=== PATIENT | female | born 1980 | race Caucasian/White ===

== ENCOUNTER 2018-06-01 11:59 | Inpatient (IN) | payer MEDICARE, MEDICAID ==
[~2018-06-01] VITALS: Ht 160 cm; Wt 72.6 kg
[~2018-06-01 11:59] MED LIST: ACET-1467 PO; ASPI-1094 PO; CEPH-570 PO; CLON1TAB12 PO; DIVA500T2 PO; FERR-38 PO; INSU100C SQ; INSU100V7 SQ; LURA20TA PO; METO50TA16 PO; ZOLP10TA2 PO
[2018-06-01] MEDS ORDERED: IV NORMAL SALINE 1000 ML BAG IV ONE ×2 (14:00→15:30)
[2018-06-01 14:35] LABS: BASOPHILS % (AUTO) 0.2 % (0.0-2.0); EOSINOPHILS % (AUTO) 0.2 % (0.0-7.0); HEMATOCRIT 34.2 % (31.2-41.9); HEMOGLOBIN 11.8 g/dL (10.9-14.3); LYMPHOCYTES # (AUTO) 0.3 K/uL (20.0-40.0); LYMPHOCYTES % (AUTO) 2.3 % (20.5-51.5); MEAN CORPUSCULAR HEMOGLOBIN 32.6 uug (24.7-32.8); MEAN CORPUSCULAR HGB CONC 35 g/dL (32.3-35.6); MEAN CORPUSCULAR VOLUME 94.6 fL (75.5-95.3); MONOCYTES # (AUTO) 0.5 K/uL (2.0-10.0); MONOCYTES % (AUTO) 4.5 % (0.0-11.0); NEUTROPHILS # (AUTO) 10.2 K/uL (1.8-8.9); NEUTROPHILS % (AUTO) 92.8 % (38.5-71.5); PLATELET COUNT (AUTO) 253 K/uL (179-408); RED BLOOD CELL COUNT(AUTO) 3.61 MIL/uL (3.63-4.92)
[2018-06-01 14:44] LABS: CARBON DIOXIDE 25 mmol/L (21-32); CHLORIDE 103 mmol/L (98-107); CREATININE 1.2 mg/dL (0.6-1.3); POTASSIUM 4.7 mmol/L (3.5-5.1); UREA NITROGEN, BLOOD 22 mg/dL (7-18)
--- NOTE | 2018-06-01 14:47 | NUR ---
tried 3 time to heplock the pt unsuccessfull. pt requested to be placed on the foot. dr. santillan oked it.
[2018-06-01 14:49] LABS: GLUCOSE 378 mg/dL (74-106)
[2018-06-01 14:51] LABS: ALANINE AMINOTRANSFERASE 14 U/L (14-59); ALKALINE PHOSPHATASE 84 U/L (50-136); ASPARTATE AMINOTRANSFERASE 5 U/L (15-37); BILIRUBIN,DIRECT < 0.1 mg/dL (0.0-0.2); BILIRUBIN,TOTAL 0.2 mg/dL (0.2-1.0); LIPASE 129 U/L (73-393); TOTAL PROTEIN, SERUM 7.9 g/dL (6.4-8.2)
[2018-06-01 15:14] LABS: *BILIRUBIN,URIN NEGATIVE (NEGATIVE); *BLOOD, URINE NEGATIVE (NEGATIVE); *CLARITY,URINE SLIGHTLY CLOUDY (CLEAR); *COLOR,URINE YELLOW (YELLOW); *KETONES,URINE TRACE (NEGATIVE); *UROBILINOGEN,URINE 0.2 E.U./dl (NORMAL); NITRITE, URINE NEGATIVE (NEGATIVE); PH,URINE 6.5 (5.0-8.0); UGLUCOSE 2+ (NEGATIVE)
[2018-06-01 15:19] LABS: LEUKOCYTE ESTERASE ,URINE TRACE (NEGATIVE)
[2018-06-01 15:21] LABS: BACTERIA,URINE MODERATE /HPF (NONE SEEN); SQUAMOUS EPITHELIAL CELL,UR MANY /HPF (NONE SEEN)
[2018-06-01] MEDS ORDERED: INSULIN REGULAR, HUMAN 300 UNIT/3 ML VIAL IV ONE (15:30)
--- NOTE | 2018-06-01 15:36 | NUR ---
PT DOES NOT REMEMBER HER HOME MEDICATION.
[2018-06-01] MEDS ORDERED: FERR325T28 PO (16:05)
[2018-06-01] MEDS ORDERED: INSU100V7 SQ (16:05)
[2018-06-01] MEDS ORDERED: ASPI-605 PO (16:05)
[2018-06-01] MEDS ORDERED: ZOLP10TA2 PO (16:05)
[2018-06-01] MEDS ORDERED: CLON1TAB12 PO (16:05)
[2018-06-01] MEDS ORDERED: LURA40TA PO (16:05)
[2018-06-01] MEDS ORDERED: INSU100C SQ (16:05)
[2018-06-01] MEDS ORDERED: ACET-1467 PO (16:05)
[2018-06-01] MEDS ORDERED: DIVA500T2 PO (16:05)
[2018-06-01] MEDS ORDERED: INSULIN REGULAR, HUMAN 300 UNIT/3 ML VIAL ONE (16:22)
[2018-06-01] MEDS ORDERED: ONDANSETRON 4 MG/2 ML VIAL ONE (16:59)
[2018-06-01] MEDS ORDERED: ONDANSETRON IV *ER 4 MG/2 ML VIAL IV ONE (17:00)
[2018-06-01] MEDS ORDERED: FENTANYL CITRATE 100 MCG/2 ML AMPUL IV ONE (17:30)
[2018-06-01] MEDS ORDERED: FENTANYL CITRATE 100 MCG/2 ML AMPUL ONE (17:48)
[2018-06-01] MEDS ORDERED: IV NS 1000 ML 1,000 ML IV ONE ×2 (19:00)
[2018-06-01 19:07] VITALS: BP 140/85
[2018-06-01] MEDS ORDERED: CLONAZEPAM 1 MG TABLET PO PRN (19:15)
[2018-06-01] MEDS ORDERED: ZOLPIDEM TARTRATE PO PRN (19:15)
[2018-06-01] MEDS ORDERED: INSULIN REGULAR, HUMAN 300 UNIT/3 ML VIAL SQ PRN ×2 (19:15)
[2018-06-01] MEDS ORDERED: DEXTROSE 50% 50 ML DISP.SYRIN IV PRN ×2 (19:15)
[2018-06-01] MEDS ORDERED: ZOLPIDEM 5 MG TABLET PO PRN (19:30)
[2018-06-01 19:45] VITALS: BP 136/90
--- NOTE | 2018-06-01 19:45 | NUR ---
RECEIVED PATIENT AWAKE IN BED. A/O X4. C/O MILD DISCOMFORT IN ABDOMEN AND C/O NAUSEA. VSS. PATIENT HAS #22 GAUGE NOTED TO RIGHT FOOT. RECEIVED ORDER FOR PATIENT TO HAVE MID-LINE INSERTION TONIGHT. PATIENT GIVEN ZOFRAN 4MG IV PER RN. BED ALARM ON. CALL LIGHT IN REACH. ALL NEEDS ATTENDED. WILL CONTINUE TO MONITOR.
[2018-06-01] MEDS: ONDANSETRON 4 MG/2 ML VIAL IV PRN (19:49)
[2018-06-01] MEDS ORDERED: VANCOMYCIN IV 1,500 MG in IV DEXTROSE 5% 500 ML IV SCH (20:00)
[2018-06-01] MEDS ORDERED: FLUCONAZOLE 100 MG TABLET PO ONE (20:30)
[2018-06-01] MEDS ORDERED: MORPHINE SULFATE 2 MG/1 ML DISP.SYRIN IV PRN (20:30)
[2018-06-01] MEDS: BLOOD SUGAR DIAGNOSTIC 1 EACH STRIP VI SCH (20:35)
[2018-06-01] MEDS: INSULIN GLARGINE,HUM 300 UNITS/3 ML CARTRIDGE SQ SCH (20:47)
[2018-06-01] MEDS: INSULIN REGULAR, HUMAN 300 UNITS/3 ML VIAL SQ PRN (20:48)
[2018-06-01] MEDS ORDERED: BLOOD SUGAR DIAGNOSTIC 1 EACH STRIP VI SCH (21:00)
--- NOTE | 2018-06-01 21:00 | NUR ---
INSERTED MYLES CATHETER FR 16VWITH 10ML BALLOON PER ORDER. PATIENT DRAINED 800ML OF CLEAR YELLOW URINE ON MYLES BAG VIA GRAVITY.
--- NOTE | 2018-06-01 21:00 | NUR ---
MID-LINE INSERTED TO LEFT UPPER ARM.
--- NOTE | 2018-06-01 21:02 | NUR ---
PHARMACY CLINICAL NOTES ( VANCOMYCIN DOSING) S: 38 yo female with dx of early sepsis, source of possible pyelonephritis. She is also complaining of abdominal pain in addition to n/v. O: BUN/SCR 22/1.2; WBC 11.0, TEMP 98.6, dosing wt 73 kg , CRCL 51.55 A/P: PT on zosyn as well. Will dose Vancomcyin as 1500 mg q24h, estimated peak of 41.4 and trough of 15. Will continue to monitor the renal fxn and if stable will order trough prior to 4th dose and will adjust dose if necessary.
[2018-06-01] MEDS: MORPHINE SULFATE 4 MG/1 ML DISP.SYRIN IV PRN (21:24)
[2018-06-01] MEDS: PIPERACILLIN/TAZOBACTAM/D5W 3.375 G in PREMIXED 1 EACH IV SCH (22:05)
--- NOTE | 2018-06-01 23:00 | NUR ---
RECEIVED PATIENT LYING IN BED. AAOX4. IN NO ACUTE DISTRESS. IV SITE ON RIGHT FOOT INTACT AND PATENT. MIDLINE ON LEFT UPPER ARM INTACT. IV INFUSING. MYLES CATHETER INTACT AND DRAINING VIA GRAVITY. NEEDS ATTENDED TO AND MET. SAFETY MEASURE MAINTAINED AND CALL KIM WITHIN REACH.
[2018-06-01] MEDS: ACETAMINOPHEN/CODEINE 300-30 MG TABLET PO PRN (23:19)
[2018-06-02] MEDS: MORPHINE SULFATE 4 MG/1 ML DISP.SYRIN IV PRN ×4 (03:29→19:58)
[2018-06-02 03:34] VITALS: BP 108/57
[2018-06-02] MEDS: PIPERACILLIN/TAZOBACTAM/D5W 3.375 G in PREMIXED 1 EACH IV SCH ×3 (05:09→21:36)
--- NOTE | 2018-06-02 06:11 | NUR ---
AAOX4. IV SITE ON RIGHT FOOT INTACT AND PATENT. MIDLINE ON LEFT UPPER ARM INTACT. NO ADVERSE EFFECT NOTED FROM IV ABX. MYLES CATHETER INTACT AND DRAINING VIA GRAVITY. DENIES ANY PAIN AT THIS TIME. NO SOB. NEEDS ATTENDED TO AND MET. SAFETY MEASURE MAINTAINED AND CALL KIM WITHIN
[2018-06-02] MEDS: BLOOD SUGAR DIAGNOSTIC 1 EACH STRIP VI SCH ×4 (06:37→20:14)
--- NOTE | 2018-06-02 07:00 | NUR ---
PATIENT IS A/O x 3, NO SOB OR ANY DISTRESS AT THE MOMENT, F/C INTACT, MIDLINE ON L UP ARM INTACT, COMPLAINS OF ABD PAIN WILL FOLLOW UP WITH ORDER PER MD. CARE PLAN DISCUSSED. SAFETY REINFORCED
[2018-06-02 08:00] VITALS: BP 99/65
[2018-06-02] MEDS: PANTOPRAZOLE SODIUM 40 MG VIAL IV SCH (09:11)
[2018-06-02] MEDS: DIVALPROEX 500 MG TABLET.DR PO SCH ×2 (09:11→17:30)
[2018-06-02] MEDS: FERROUS SULFATE 325 MG TABEC PO SCH (09:12)
[2018-06-02] MEDS: ASPIRIN EC 81 MG TABLET.DR PO SCH (09:12)
[2018-06-02 12:00] VITALS: BP 91/60
--- NOTE | 2018-06-02 13:00 | NUR ---
D/C F/CATH PER SYDNEY STOUT
--- NOTE | 2018-06-02 14:30 | NUR ---
INSERTION OF F/CATH PER SALES SERVICE REP BOBBY DUE TO AREA REPRESENTATIVE REQUEST
[2018-06-02 14:49] LABS: BASOPHILS % (AUTO) 0.6 % (0.0-2.0); EOSINOPHILS # (AUTO) 0.1 K/uL (0.0-0.7); HEMATOCRIT 25.7 % (31.2-41.9); LYMPHOCYTES # (AUTO) 1.7 K/uL (20.0-40.0); LYMPHOCYTES % (AUTO) 35.2 % (20.5-51.5); MEAN CORPUSCULAR HGB CONC 35 g/dL (32.3-35.6); MEAN CORPUSCULAR VOLUME 93.5 fL (75.5-95.3); MONOCYTES # (AUTO) 0.3 K/uL (2.0-10.0); MONOCYTES % (AUTO) 5.6 % (0.0-11.0); NEUTROPHILS # (AUTO) 2.6 K/uL (1.8-8.9); NEUTROPHILS % (AUTO) 55.6 % (38.5-71.5); PLATELET COUNT (AUTO) 226 K/uL (179-408); RED BLOOD CELL COUNT(AUTO) 2.75 MIL/uL (3.63-4.92); WHITE BLOOD COUNT (AUTO) 4.7 K/uL (3.8-11.8)
[2018-06-02] MEDS: IV NS 1000 ML 1,000 ML IV PRN (14:50)
[2018-06-02 14:56] LABS: HEMOGLOBIN 9.1 g/dL (10.9-14.3)
[2018-06-02 15:02] LABS: MAGNESIUM 1.6 mg/dL (1.8-2.4); PHOSPHOROUS 2.6 mg/dL (2.5-4.9); POTASSIUM 3.3 mmol/L (3.5-5.1)
[2018-06-02] MEDS: ACETAMINOPHEN 325 MG TABLET PO PRN (15:51)
[2018-06-02] MEDS: POTASSIUM CHLORIDE 50 ML IV SCH ×2 (16:24→17:30)
[2018-06-02] MEDS ORDERED: SWABABLE VALVE TRANSFER SET EA MC ONE (16:46)
[2018-06-02] MEDS ORDERED: IOHEXOL 300MG/ML 100 ML INFUS..BTL ONE (16:46)
[2018-06-02] MEDS ORDERED: IV NORMAL SALINE 250 ML IV ONE (16:46)
[2018-06-02] MEDS ORDERED: NORMAL SALINE FLUSH 10 ML DISP.SYRIN ONE (16:46)
[2018-06-02] MEDS ORDERED: LURASIDONE HCL PO SCH (18:00)
--- NOTE | 2018-06-02 18:23 | NUR ---
PATIENT A/O X3, COMPLAINED OF ABD PAIN WERE TREATED W MORPHINE WHICH WASNT WORKING FOR DESIRED OUTCOME. DOCTOR IS AWARE OF IT, DOSE WAS CHANGED INFREQUENCY AND CONTROLLED BETTER. MIDLINE INTACT, POTASSIUM REPLACED W TWO BAGS, F/C REINSERTED, MED CARED OUT THOUGHT SHIFT, CT W/ CONTRAST FOR ABD IS ORDERED AND CONSENT SIGNED. SAFETY REINFORCED
[2018-06-02] MEDS: ONDANSETRON 4 MG/2 ML VIAL IV PRN (18:32)
--- NOTE | 2018-06-02 19:45 | NUR ---
RECEIVED PATIENT AWAKE IN BED. A/O X4. NO C/O PAIN OR DISCOMFORT AT THIS TIME. NO RESP. DISTRESS NOTED. MID-LINE NOTED TO LEFT UPPER ARM. HEPLOCK NOTED TO RIGHT FOOT, #22 GAUGE. VS WNL. F/C INTACT AND DRAINING CLEAR, YELLOW URINE. BED ALARM ON. CALL LIGHT IN REACH. ALL NEEDS ATTENDED. WILL CONTINUE TO MONITOR AND ASSESS.
[2018-06-02] MEDS: MAGNESIUM SULFATE/D5W 100 ML IV SCH ×2 (19:48→20:54)
[2018-06-02 20:00] VITALS: BP 121/76
[2018-06-02] MEDS: INSULIN GLARGINE,HUM 300 UNITS/3 ML CARTRIDGE SQ SCH (20:15)
[2018-06-03] MEDS: MORPHINE SULFATE 4 MG/1 ML DISP.SYRIN IV PRN ×4 (01:49→18:15)
[2018-06-03] MEDS: ACETAMINOPHEN 325 MG TABLET PO PRN (03:07)
[2018-06-03] MEDS: PIPERACILLIN/TAZOBACTAM/D5W 3.375 G in PREMIXED 1 EACH IV SCH ×3 (05:41→21:02)
[2018-06-03 05:42] VITALS: BP 91/45
[2018-06-03] MEDS: BLOOD SUGAR DIAGNOSTIC 1 EACH STRIP VI SCH ×4 (06:33→20:12)
--- NOTE | 2018-06-03 06:36 | NUR ---
PATIENT AWAKE IN BED. SLEPT WELL. NO C/O PAIN AT THIS TIME. CALL LIGHT IN REACH. ALL NEEDS ATTENDED.
[2018-06-03 07:08] LABS: BASOPHILS % (AUTO) 0.7 % (0.0-2.0); EOSINOPHILS # (AUTO) 0.1 K/uL (0.0-0.7); EOSINOPHILS % (AUTO) 2.5 % (0.0-7.0); HEMATOCRIT 26.8 % (31.2-41.9); HEMOGLOBIN 9.5 g/dL (10.9-14.3); LYMPHOCYTES # (AUTO) 1.7 K/uL (20.0-40.0); LYMPHOCYTES % (AUTO) 37.4 % (20.5-51.5); MEAN CORPUSCULAR HEMOGLOBIN 33.3 uug (24.7-32.8); MEAN CORPUSCULAR HGB CONC 36 g/dL (32.3-35.6); MEAN CORPUSCULAR VOLUME 93.7 fL (75.5-95.3); MONOCYTES # (AUTO) 0.3 K/uL (2.0-10.0); MONOCYTES % (AUTO) 6.2 % (0.0-11.0); NEUTROPHILS # (AUTO) 2.5 K/uL (1.8-8.9); NEUTROPHILS % (AUTO) 53.2 % (38.5-71.5); PLATELET COUNT (AUTO) 246 K/uL (179-408); RED BLOOD CELL COUNT(AUTO) 2.86 MIL/uL (3.63-4.92); WHITE BLOOD COUNT (AUTO) 4.6 K/uL (3.8-11.8)
[2018-06-03 07:18] LABS: CREATININE 0.9 mg/dL (0.6-1.3); MAGNESIUM 2.5 mg/dL (1.8-2.4); PHOSPHOROUS 3.6 mg/dL (2.5-4.9); POTASSIUM 3.7 mmol/L (3.5-5.1)
[2018-06-03] MEDS: FERROUS SULFATE 325 MG TABEC PO SCH (08:00)
[2018-06-03] MEDS: DIVALPROEX 500 MG TABLET.DR PO SCH ×2 (08:00→17:03)
[2018-06-03] MEDS: ASPIRIN EC 81 MG TABLET.DR PO SCH (08:00)
[2018-06-03] MEDS: PANTOPRAZOLE SODIUM 40 MG VIAL IV SCH (08:00)
[2018-06-03 11:48] VITALS: BP 91/53
[2018-06-03 15:26] VITALS: BP 94/46
--- NOTE | 2018-06-03 18:34 | NUR ---
patient is resting in bed comfortably. patient is in stable condition and vital signs within normal limits. patient was not eating breakfast nor lunch. Patient was compliant and consumed all of her food for dinner. Patient has been complaining of pain through out the shift but is well managed with medication administration of morphine 2mg IV Q4h PRN. patient states abdominal pain but refuses to allow me to assess. Patient prefers medication. Damian catheter has been remove per N.P. order. Will monitor for void and urine output. Patient is able to verbalize needs and all needs have been addressed and met. Will continue to monitor and endorse POC to mini shifter nurse.
--- NOTE | 2018-06-03 20:00 | NUR ---
RECEIVED PATIENT AWAKE IN BED. A/O X4. NO C/O AT THIS TIME. PATIENT WAS PREVIOUSLY MEDICATED PER DAY SHIFT RN. VSS. MID-LINE NOTED TO LEFT UPPER ARM, INTACT AND PATENT, WITH IVF INFUSING WELL. NO RESP. DISTRESS NOTED. CALL LIGHT IN REACH. ALL NEEDS ATTENDED. WILL CONTINUE TO MONITOR AND ASSESS.
[2018-06-03] MEDS: INSULIN REGULAR, HUMAN 300 UNITS/3 ML VIAL SQ PRN (20:13)
[2018-06-03] MEDS: INSULIN GLARGINE,HUM 300 UNITS/3 ML CARTRIDGE SQ SCH (20:13)
[2018-06-03 20:25] VITALS: BP 120/68
[2018-06-03] MEDS: ACETAMINOPHEN/CODEINE 300-30 MG TABLET PO PRN (21:21)
--- NOTE | 2018-06-03 21:25 | NUR ---
PATIENT AWAKE IN BED. C/O PAIN IN ABDOMEN. MORPHINE NOT DUE AT THIS TIME. PATIENT GIVEN TYLENOL #3 ORDERED FOR PAIN. VSS. WILL CONTINUE TO MONITOR.
[2018-06-04] MEDS: MORPHINE SULFATE 4 MG/1 ML DISP.SYRIN IV PRN (01:16)
--- NOTE | 2018-06-04 01:22 | NUR ---
GAVE FRIENDSHIP FOR PAIN SCALE 8/10 PAIN ON HER LEFT, RIGHT MEDIAL ABDOMEN. SAFETY AND COMFORT PROVIDED. WILL CONTINUE TO MONITOR. Addendum: 06/04/18 at 0643 by SABIHA DUQUE RN WRONG MEDICATION IT SHOULD BE MORPHINE.
[2018-06-04 04:26] VITALS: BP 110/67
[2018-06-04] MEDS: PIPERACILLIN/TAZOBACTAM/D5W 3.375 G in PREMIXED 1 EACH IV SCH (05:01)
[2018-06-04] MEDS: IV NS 1000 ML 1,000 ML IV PRN (05:19)
[2018-06-04 06:28] LABS: CREATININE 0.9 mg/dL (0.6-1.3); MAGNESIUM 2.3 mg/dL (1.8-2.4); PHOSPHOROUS 4.1 mg/dL (2.5-4.9); POTASSIUM 3.9 mmol/L (3.5-5.1)
[2018-06-04] MEDS: BLOOD SUGAR DIAGNOSTIC 1 EACH STRIP VI SCH ×3 (06:28→12:20)
[2018-06-04 06:32] LABS: BASOPHILS % (AUTO) 0.7 % (0.0-2.0); EOSINOPHILS # (AUTO) 0.1 K/uL (0.0-0.7); EOSINOPHILS % (AUTO) 1.7 % (0.0-7.0); HEMATOCRIT 29.6 % (31.2-41.9); HEMOGLOBIN 10.5 g/dL (10.9-14.3); LYMPHOCYTES # (AUTO) 2.2 K/uL (20.0-40.0); LYMPHOCYTES % (AUTO) 40.8 % (20.5-51.5); MEAN CORPUSCULAR HEMOGLOBIN 32.6 uug (24.7-32.8); MEAN CORPUSCULAR HGB CONC 35 g/dL (32.3-35.6); MEAN CORPUSCULAR VOLUME 91.9 fL (75.5-95.3); MONOCYTES # (AUTO) 0.3 K/uL (2.0-10.0); MONOCYTES % (AUTO) 5.9 % (0.0-11.0); NEUTROPHILS # (AUTO) 2.8 K/uL (1.8-8.9); NEUTROPHILS % (AUTO) 50.9 % (38.5-71.5); PLATELET COUNT (AUTO) 186 K/uL (179-408); RED BLOOD CELL COUNT(AUTO) 3.22 MIL/uL (3.63-4.92); WHITE BLOOD COUNT (AUTO) 5.5 K/uL (3.8-11.8)
--- NOTE | 2018-06-04 06:55 | NUR ---
PATIENTS BLOOD SUGAR, 51. PATIENT ASYMPTOMATIC. PATIENT GIVEN JUICE AND CIERRA CRACKERS. RECHECKED AFTER 15 MINUTES, BLOOD SUGAR NOW 101. ALL NEEDS ATTENDED .
[2018-06-04] MEDS ORDERED: PANTOPRAZOLE SODIUM 40 MG TABLET.DR PO SCH (07:00)
--- NOTE | 2018-06-04 07:25 | NUR ---
RECEIVED REPORT FROM TECHNICAL PROGRAM MANAGER NURSE, PATIENT IN BED ASLEEP, NO DISTRESS NOTED AT THIS TIME, BED IN LOW POSITION, SIDE RAILS UP X2.
[2018-06-04] MEDS: DIVALPROEX 500 MG TABLET.DR PO SCH (09:59)
[2018-06-04] MEDS: FERROUS SULFATE 325 MG TABEC PO SCH (09:59)
[2018-06-04] MEDS: ASPIRIN EC 81 MG TABLET.DR PO SCH (09:59)
[2018-06-04 11:40] VITALS: BP 101/68
[2018-06-04] MEDS ORDERED: LEVO500T2 PO (12:10)
--- NOTE | 2018-06-04 14:05 | NUR ---
Patient was given discharge instructions, IV removed and prescription given. Patient refused to have pictures taken as she didn't want wound to be unwrapped before she goes home. Patient picked up by father, and was taken down by staff to sheepskin pickler area via wheelchair. No distress noted at time of discharge.
[2018-06-27] MEDS ORDERED: DOCU100C36 PO (13:47)
[2018-06-27] MEDS ORDERED: FERR325T28 PO (14:23)
== END 2018-06-04 14:05 | disposition home health service (06) | DRG 854 ==
LOC: ER 11:59 → MED 18:26
PROVIDERS: ADMIT Registered Nurse; ATTEND Registered Nurse
PROC: 05HY33Z Insertion of Infusion Device into Upper Vein, Percutaneous Approach (ICD-10-PCS; principal; 2018-06-01)
PROC: 0JBR0ZZ Excision of Left Foot Subcutaneous Tissue and Fascia, Open Approach (ICD-10-PCS; 2018-06-03)
DX: A41.9 Sepsis, unspecified organism (principal); N12 Tubulo-interstitial nephritis, not specified as acute or chronic; N13.30 Unspecified hydronephrosis; L97.525 Non-pressure chronic ulcer of other part of left foot with muscle involvement without evidence of necrosis; E87.2 Acidosis; N39.0 Urinary tract infection, site not specified; K76.0 Fatty (change of) liver, not elsewhere classified; G40.909 Epilepsy, unspecified, not intractable, without status epilepticus; Z87.440 Personal history of urinary (tract) infections; R33.9 Retention of urine, unspecified; E66.9 Obesity, unspecified; Z68.28 Body mass index [BMI] 28.0-28.9, adult; E11.621 Type 2 diabetes mellitus with foot ulcer; N31.9 Neuromuscular dysfunction of bladder, unspecified; E11.42 Type 2 diabetes mellitus with diabetic polyneuropathy; Z79.4 Long term (current) use of insulin; Z79.82 Long term (current) use of aspirin; E86.0 Dehydration; B37.3 Candidiasis of vulva and vagina; Q63.2 Ectopic kidney; Z71.3 Dietary counseling and surveillance; B96.89 Other specified bacterial agents as the cause of diseases classified elsewhere; E11.65 Type 2 diabetes mellitus with hyperglycemia; K58.0 Irritable bowel syndrome with diarrhea
CPT/HCPCS: 36415; 70030-TC; 71045; 73630; 83605; 83690; 83735; 84100; 85025; 85730; 87040; 87086; 93005; A4663; C9113; G0378; J1815; J2270; J2405; J2543; J3010; J3370; J3475; J3480; J3490; J7030; J7050; J7060; Q9967

== ENCOUNTER 2018-06-21 10:07 | Inpatient (IN) | payer MEDICARE, MEDICAID ==
[~2018-06-21] VITALS: Ht 160 cm; Wt 74.8 kg
[~2018-06-21 10:07] MED LIST changes: +ASPI-605 PO; +FERR325T28 PO; +LEVO500T2 PO; +LURA40TA PO
--- NOTE | 2018-06-21 10:13 | NUR ---
PT A/OX4, BIB [facility] C/O L FLANK PAIN X 1 WEEK, NON-PROVOKED, SHARP IN QUALITY, DOES NOT RADIATE, 10, CONSTANT. VSS. SECONDARY COMPLAINT: N/V X 3 WEEKS. PT ALSO REPORTS 9 EPISODES OF VOMITING SINCE THIS AM. PT DENIES C/P, SOB, DIZZINESS, HEADACHE.
[2018-06-21] MEDS ORDERED: IV NORMAL SALINE 1000 ML BAG IV ONE (10:15)
--- NOTE | 2018-06-21 10:15 | NUR ---
OMEGA YU AT BEDSIDE FOR MSE.
[2018-06-21 10:40] LABS: BASOPHILS # (AUTO) 0.1 K/uL (0.0-8.0); BASOPHILS % (AUTO) 0.9 % (0.0-2.0); EOSINOPHILS # (AUTO) 0.1 K/uL (0.0-0.7); EOSINOPHILS % (AUTO) 1.1 % (0.0-7.0); HEMATOCRIT 37.9 % (31.2-41.9); HEMOGLOBIN 13.3 g/dL (10.9-14.3); LYMPHOCYTES # (AUTO) 1.6 K/uL (20.0-40.0); LYMPHOCYTES % (AUTO) 22.9 % (20.5-51.5); MEAN CORPUSCULAR HEMOGLOBIN 32.5 uug (24.7-32.8); MEAN CORPUSCULAR HGB CONC 35 g/dL (32.3-35.6); MEAN CORPUSCULAR VOLUME 92.8 fL (75.5-95.3); MONOCYTES # (AUTO) 0.4 K/uL (2.0-10.0); MONOCYTES % (AUTO) 5.1 % (0.0-11.0); PLATELET COUNT (AUTO) 372 K/uL (179-408); RED BLOOD CELL COUNT(AUTO) 4.09 MIL/uL (3.63-4.92); WHITE BLOOD COUNT (AUTO) 7.1 K/uL (3.8-11.8)
[2018-06-21 10:48] LABS: CREATININE 1.1 mg/dL (0.6-1.3); POTASSIUM 4.2 mmol/L (3.5-5.1)
[2018-06-21 10:54] LABS: BILIRUBIN,DIRECT 0.1 mg/dL (0.0-0.2); BILIRUBIN,TOTAL 0.3 mg/dL (0.2-1.0)
[2018-06-21] MEDS ORDERED: MORPHINE SULFATE 4 MG/1 ML DISP.SYRIN IV ONE (11:00)
[2018-06-21] MEDS ORDERED: ONDANSETRON IV *ER 4 MG/2 ML VIAL IV ONE (11:00)
[2018-06-21] MEDS ORDERED: IV NORMAL SALINE 500 ML BAG IV ONE (11:00)
[2018-06-21] MEDS ORDERED: PIPERACILLIN SODIUM/TAZOBACTAM 3.375 G in IV DEXTROSE 5% 50 ML IV ONE (11:00)
--- NOTE | 2018-06-21 11:01 | NUR ---
US TECH AT BEDSIDE.
[2018-06-21] MEDS ORDERED: ONDANSETRON 4 MG/2 ML VIAL ONE (11:04)
[2018-06-21] MEDS ORDERED: MORPHINE SULFATE 4 MG/1 ML DISP.SYRIN ONE (11:04)
[2018-06-21] MEDS ORDERED: PIPERACILLIN/TAZOBACTAM/D5W 50 ML IV ONE (11:04)
[2018-06-21 11:33] LABS: *BILIRUBIN,URIN NEGATIVE (NEGATIVE); *BLOOD, URINE NEGATIVE (NEGATIVE); *CLARITY,URINE CLEAR (CLEAR); *COLOR,URINE YELLOW (YELLOW); *KETONES,URINE 1+ (NEGATIVE); *UROBILINOGEN,URINE 0.2 E.U./dl (NORMAL); LEUKOCYTE ESTERASE ,URINE NEGATIVE (NEGATIVE); NITRITE, URINE NEGATIVE (NEGATIVE); UGLUCOSE NEGATIVE (NEGATIVE)
--- NOTE | 2018-06-21 11:37 | NUR ---
OMEGA YU AT BEDSIDE FOR PT UPDATE.
--- NOTE | 2018-06-21 12:01 | NUR ---
PAGED EPIC FOR PANEL CALL - AWAITING CALLBACK FROM DR. GREEN. ATTEMPT 1.
[2018-06-21 12:30] LABS: *URINE HCG, QUAL NEGATIVE (NEGATIVE)
--- NOTE | 2018-06-21 12:57 | NUR ---
PT TAKEN TO RADIOLOGY FOR CT SCAN.
--- NOTE | 2018-06-21 13:17 | NUR ---
PT BACK IN ER FROM RADIOLOGY.
--- NOTE | 2018-06-21 14:19 | NUR ---
Pt. admitted to [facility], under care of Dr. GREEN. Belongs List completed
--- NOTE | 2018-06-21 14:50 | NUR ---
RECEIVED PATIENT FROM ER VIA [place], PATIENT CHIEF COMPLAIN LEFT FLANK PAIN AND DIAGNOSE WITH ABDOMINAL PAIN , UNDER THE SERVICE OF DR. MEDRANO. VS TAKEN AND AND BELONGINGS CHECK. IV SITE ON LEFT THUMB WITH 22 GAUGE. NO SOB NOTED AND PATIENT LAYING IN BED COMFORTABLY. BED ON LOW POSITION AND 2 SIDE RAILS UP. ORIENT THE PATIENT TO THE ROOM AND EMPHASIZE THE USE OF CALL LIGHT. WILL CONTINUE TO MONITOR.
[2018-06-21] MEDS ORDERED: ACETAMINOPHEN 325 MG TABLET PO PRN (15:00)
[2018-06-21] MEDS ORDERED: DEXTROSE 50% 50 ML DISP.SYRIN IV PRN (15:00)
[2018-06-21] MEDS ORDERED: MORPHINE SULFATE 2 MG/1 ML DISP.SYRIN IV PRN (15:00)
[2018-06-21] MEDS ORDERED: ZOLPIDEM 5 MG TABLET PO PRN (15:00)
[2018-06-21] MEDS ORDERED: MAGNESIUM HYDROXIDE 30 ML LIQUID UDC PO PRN (15:00)
[2018-06-21] MEDS ORDERED: ONDANSETRON 4 MG/2 ML VIAL IV PRN (15:00)
[2018-06-21] MEDS: BLOOD SUGAR DIAGNOSTIC 1 EACH STRIP VI SCH ×2 (16:50→20:33)
[2018-06-21] MEDS: DIVALPROEX 500 MG TABLET.DR PO SCH (17:15)
[2018-06-21] MEDS: MORPHINE SULFATE 4 MG/1 ML DISP.SYRIN IV PRN ×2 (17:16→22:35)
[2018-06-21] MEDS: IV 1/2NS 1000 ML 1,000 ML IV PRN (17:17)
[2018-06-21] MEDS ORDERED: LURASIDONE HCL PO SCH (18:00)
--- NOTE | 2018-06-21 18:18 | NUR ---
patient want to get pneumo vaccine upon discharge. Addendum: 06/21/18 at 1819 by NINA ROSS RN Amended: Links added.
--- NOTE | 2018-06-21 18:40 | NUR ---
PATIENT IN BED LAYING COMFORTABLY ALERT AND ORIENTED X4 , NO SOB NOTED, NO C/O PAIN AT THIS MOMENT. BED ON LOW POSITION , SIDE RAILS UPX2 , SNACKS GIVEN AND OFFERED ICE WATER. IV SITE PATENT 1/2 NS AT 80 ML/HR. WILL CONTINUE TO MONITOR AND CALL LIGHT WITHIN REACH
[2018-06-21 20:00] VITALS: BP 92/52
--- NOTE | 2018-06-21 20:15 | NUR ---
RECEIVED PATIENT AWAKE IN BED. A/O X4. DENIES PAIN OR DISCOMFORT. NO RESP. DISTRESS NOTED. IVF INFUSING WELL TO LEFT THUMB. CALL LIGHT IN REACH. ALL NEEDS ATTENDED. WILL CONTINUE TO MONITOR AND ASSESS.
[2018-06-21] MEDS: INSULIN GLARGINE,HUM 300 UNITS/3 ML CARTRIDGE SQ SCH (20:29)
[2018-06-21] MEDS: INSULIN REGULAR, HUMAN 300 UNIT/3 ML VIAL SQ PRN (20:30)
[2018-06-21] MEDS: DOCUSATE SODIUM 100 MG CAPSULE PO SCH ×2 (20:36→20:53)
[2018-06-21] MEDS ORDERED: DOCUSATE SODIUM 250 MG CAPSULE PO SCH (21:00)
[2018-06-21 22:15] VITALS: BP 115/68
[2018-06-22] VITALS (7 sets, daily range): BP systolic 75–113; BP diastolic 46–74
[2018-06-22] MEDS: MORPHINE SULFATE 4 MG/1 ML DISP.SYRIN IV PRN ×4 (01:48→19:00)
[2018-06-22] MEDS: IV 1/2NS 1000 ML 1,000 ML IV PRN ×2 (05:22→19:01)
[2018-06-22] MEDS: PANTOPRAZOLE SODIUM 40 MG TABLET.DR PO SCH (06:10)
--- NOTE | 2018-06-22 06:16 | NUR ---
PATIENT AWAKE IN BED. C/O PAIN. GIVEN MORPHINE 2MG IV PRN FOR PAIN. VSS. CALL LIGHT IN REACH. ALL NEEDS ATTENDED. WILL CONTINUE TO MONITOR.
[2018-06-22 06:29] LABS: BASOPHILS # (AUTO) 0.1 K/uL (0.0-8.0); BASOPHILS % (AUTO) 0.8 % (0.0-2.0); EOSINOPHILS # (AUTO) 0.1 K/uL (0.0-0.7); EOSINOPHILS % (AUTO) 0.9 % (0.0-7.0); HEMATOCRIT 28.2 % (31.2-41.9); HEMOGLOBIN 9.9 g/dL (10.9-14.3); LYMPHOCYTES # (AUTO) 1.6 K/uL (20.0-40.0); LYMPHOCYTES % (AUTO) 22.9 % (20.5-51.5); MEAN CORPUSCULAR HEMOGLOBIN 32.9 uug (24.7-32.8); MEAN CORPUSCULAR HGB CONC 35 g/dL (32.3-35.6); MEAN CORPUSCULAR VOLUME 93.5 fL (75.5-95.3); MONOCYTES # (AUTO) 0.4 K/uL (2.0-10.0); MONOCYTES % (AUTO) 5.3 % (0.0-11.0); NEUTROPHILS # (AUTO) 4.8 K/uL (1.8-8.9); NEUTROPHILS % (AUTO) 70.1 % (38.5-71.5); PLATELET COUNT (AUTO) 279 K/uL (179-408); RED BLOOD CELL COUNT(AUTO) 3.02 MIL/uL (3.63-4.92); WHITE BLOOD COUNT (AUTO) 6.9 K/uL (3.8-11.8)
[2018-06-22] MEDS: BLOOD SUGAR DIAGNOSTIC 1 EACH STRIP VI SCH ×4 (06:33→21:31)
[2018-06-22 06:50] LABS: BILIRUBIN,TOTAL 0.2 mg/dL (0.2-1.0); MAGNESIUM 1.7 mg/dL (1.8-2.4); PHOSPHOROUS 4.1 mg/dL (2.5-4.9); POTASSIUM 3.8 mmol/L (3.5-5.1); TOTAL PROTEIN, SERUM 6.3 g/dL (6.4-8.2); URIC ACID 3.8 mg/dL (2.6-6.0)
[2018-06-22 07:20] LABS: THYROID STIMULATING HORMONE 2.675 mIU/mL (0.358-3.740)
--- NOTE | 2018-06-22 07:30 | NUR ---
patient received lying in bed, patient awake and alert falling, patient verbalized pain has improved, pain is 5 out 10. patient call light within reach, bed in low position, side rails up x2. continue to monitor, IV fluids 0.45 NS running at 80ml/hr on right upper arm midline. Addendum: 06/22/18 at 0828 by COREY ARRIAGA RN correction on note.... patient is awake and alert and falling sleep at times.
[2018-06-22] MEDS: FERROUS SULFATE 325 MG TABEC PO SCH (08:29)
[2018-06-22] MEDS: DIVALPROEX 500 MG TABLET.DR PO SCH ×2 (08:29→16:59)
--- NOTE | 2018-06-22 10:10 | NUR ---
patient requesting pain medication at this time, unable to safely administer, patient Hypotensive, 75/46. Asymptomatic, continue to monitor. instructed on safety fall precautions. call light within reach
[2018-06-22] MEDS ORDERED: MAGNESIUM OXIDE 400 MG TABLET PO ONE (10:45)
--- NOTE | 2018-06-22 11:52 | NUR ---
patient lying in bed no distress noted, falling sleep intermittently. patient requesting pain medication, patient states its starting again in her back side, verbalized "its my kidney", patient blood pressure at this time 85/46, patient with low blood pressure asymptomatic, offered to have MD review any other options for pain management , Patient verbalized she will wait for blood pressure to be stable for IV pain meds. Patient also on Latuda as part of home reconciliation not formulary not carried by our pharmacy, patient does not want to have med brought in, patient states she only has a few and doesn't need it, reported to pharmacist, Sharri. will report to MD, Dr Wilson.
[2018-06-22] MEDS ORDERED: TOPI25TA49 PO (13:36)
[2018-06-22] MEDS ORDERED: OXCA300T15 PO (13:37)
[2018-06-22] MEDS ORDERED: BUTA1CAP17 PO (13:40)
[2018-06-22] MEDS ORDERED: ALPR0.5T8 PO (13:41)
[2018-06-22 14:00] LABS: BASOPHILS % (AUTO) 0.5 % (0.0-2.0); EOSINOPHILS # (AUTO) 0.1 K/uL (0.0-0.7); EOSINOPHILS % (AUTO) 2.1 % (0.0-7.0); HEMATOCRIT 30.4 % (31.2-41.9); HEMOGLOBIN 10.5 g/dL (10.9-14.3); LYMPHOCYTES # (AUTO) 1.8 K/uL (20.0-40.0); LYMPHOCYTES % (AUTO) 31.4 % (20.5-51.5); MEAN CORPUSCULAR HEMOGLOBIN 32.4 uug (24.7-32.8); MEAN CORPUSCULAR HGB CONC 35 g/dL (32.3-35.6); MEAN CORPUSCULAR VOLUME 93.4 fL (75.5-95.3); MONOCYTES # (AUTO) 0.4 K/uL (2.0-10.0); MONOCYTES % (AUTO) 6.6 % (0.0-11.0); NEUTROPHILS # (AUTO) 3.3 K/uL (1.8-8.9); NEUTROPHILS % (AUTO) 59.4 % (38.5-71.5); PLATELET COUNT (AUTO) 265 K/uL (179-408); RED BLOOD CELL COUNT(AUTO) 3.26 MIL/uL (3.63-4.92); WHITE BLOOD COUNT (AUTO) 5.6 K/uL (3.8-11.8)
[2018-06-22 15:43] LABS: *OCCULT BLOOD STOOL POSITIVE (NEGATIVE)
--- NOTE | 2018-06-22 16:03 | NUR ---
Patient positive for Stool OB, Dr Wilson notified, to notify GI. No new orders received.
[2018-06-22] MEDS: DOCUSATE SODIUM 100 MG CAPSULE PO SCH (20:46)
[2018-06-22] MEDS: INSULIN GLARGINE,HUM 300 UNITS/3 ML CARTRIDGE SQ SCH (20:55)
[2018-06-22] MEDS: INSULIN REGULAR, HUMAN 300 UNIT/3 ML VIAL SQ PRN (20:57)
[2018-06-23 04:00] VITALS: BP 82/52
[2018-06-23 06:40] LABS: BASOPHILS % (AUTO) 0.6 % (0.0-2.0); EOSINOPHILS # (AUTO) 0.1 K/uL (0.0-0.7); EOSINOPHILS % (AUTO) 2.9 % (0.0-7.0); HEMATOCRIT 30.8 % (31.2-41.9); HEMOGLOBIN 10.7 g/dL (10.9-14.3); LYMPHOCYTES # (AUTO) 1.9 K/uL (20.0-40.0); LYMPHOCYTES % (AUTO) 38.7 % (20.5-51.5); MEAN CORPUSCULAR HEMOGLOBIN 32.5 uug (24.7-32.8); MEAN CORPUSCULAR HGB CONC 35 g/dL (32.3-35.6); MEAN CORPUSCULAR VOLUME 93.5 fL (75.5-95.3); MONOCYTES # (AUTO) 0.3 K/uL (2.0-10.0); MONOCYTES % (AUTO) 6.6 % (0.0-11.0); NEUTROPHILS # (AUTO) 2.6 K/uL (1.8-8.9); NEUTROPHILS % (AUTO) 51.2 % (38.5-71.5); PLATELET COUNT (AUTO) 251 K/uL (179-408); RED BLOOD CELL COUNT(AUTO) 3.29 MIL/uL (3.63-4.92)
[2018-06-23 06:48] LABS: CREATININE 0.9 mg/dL (0.6-1.3); MAGNESIUM 2.1 mg/dL (1.8-2.4); PHOSPHOROUS 3.8 mg/dL (2.5-4.9)
[2018-06-23] MEDS: PANTOPRAZOLE SODIUM 40 MG TABLET.DR PO SCH (07:01)
[2018-06-23] MEDS: BLOOD SUGAR DIAGNOSTIC 1 EACH STRIP VI SCH ×4 (07:05→21:02)
[2018-06-23] MEDS: IV 1/2NS 1000 ML 1,000 ML IV PRN ×2 (08:18→21:39)
[2018-06-23] MEDS: FERROUS SULFATE 325 MG TABEC PO SCH (08:20)
[2018-06-23] MEDS: DIVALPROEX 500 MG TABLET.DR PO SCH ×2 (08:20→17:15)
[2018-06-23] MEDS: MORPHINE SULFATE 4 MG/1 ML DISP.SYRIN IV PRN ×3 (08:55→20:12)
--- NOTE | 2018-06-23 09:00 | NUR ---
Patient awake, alert, not in any form of acute distress. Due medications administered and tolerated well. She complained of pain on the back, given PRN pain medication as ordered. IV line on the right upper arm in place and patent, no noted signs of infection. Assisted with her needs. Call light and frequently used items placed within reach.
[2018-06-23 12:00] VITALS: BP 90/57
[2018-06-23] MEDS: INSULIN REGULAR, HUMAN 300 UNIT/3 ML VIAL SQ PRN ×2 (12:37→20:23)
[2018-06-23 16:00] VITALS: BP 120/74
--- NOTE | 2018-06-23 19:25 | NUR ---
RECEIVED PT AWAKE, ALERT AND ORIENTEDX4. PT SHOW SNO SIGNS OF DISTRESS. IV INTACT. SAFETY AND COMFORT PROVIDED. WILL CONTINUE TO MONITOR.
[2018-06-23] MEDS: DOCUSATE SODIUM 100 MG CAPSULE PO SCH (20:13)
[2018-06-23 20:16] VITALS: BP 117/50
[2018-06-23] MEDS: INSULIN GLARGINE,HUM 300 UNITS/3 ML CARTRIDGE SQ SCH (20:21)
[2018-06-24 04:30] VITALS: BP 112/73
[2018-06-24] MEDS: PANTOPRAZOLE SODIUM 40 MG TABLET.DR PO SCH (06:19)
[2018-06-24] MEDS: BLOOD SUGAR DIAGNOSTIC 1 EACH STRIP VI SCH ×4 (06:42→20:49)
--- NOTE | 2018-06-24 06:43 | NUR ---
PT SLEPT THROUGHOUT THE SHIFT . PT SHOWS NO SIGNS OF DISTRESS. IV INTACT AND SALINE LOCK. PRESCRIBED MEDICATION GIVEN AND PT TOLERATED IT WELL.PT WAS GIVEN MORPHINE AT 2012H FOR SEVERE PAIN OF 10/10 FOR ABDOMINAL PAIN.SAFETY AND COMFORT PROVIDED. WILL ENDORSE ACCORDINGLY TO INCOMING NURSE FOR CONTINUITY OF CARE.
[2018-06-24] MEDS: MORPHINE SULFATE 4 MG/1 ML DISP.SYRIN IV PRN ×5 (06:51→22:18)
--- NOTE | 2018-06-24 07:25 | NUR ---
RECEIVED PATIENT ON BED ASLEEP, APPEARS COMFORTABLE IN STABLE CONDITION. MIDLINE ON CHARLES INTACT AND PATENT IVF OF 1/2 NS @ 80 CC/HR, INFUSING WELL. NO S/S OF NAUSEA AND VOMITING NOTED. NO ABD PAIN AT THIS TIME. COMFORT MEASURES PROVIDED. WILL CONTINUE TO MONITOR CLOSELY.
[2018-06-24] MEDS: DIVALPROEX 500 MG TABLET.DR PO SCH ×2 (08:58→17:25)
[2018-06-24] MEDS: FERROUS SULFATE 325 MG TABEC PO SCH (08:58)
[2018-06-24] MEDS: IV 1/2NS 1000 ML 1,000 ML IV PRN ×2 (09:07→20:53)
[2018-06-24 11:14] VITALS: BP 123/79
[2018-06-24 15:28] VITALS: BP 91/52
--- NOTE | 2018-06-24 18:32 | NUR ---
PATIENT APPEARS COMFORTABLE IN STABLE CONDITION IV ACCESS INTACT AND PATENT IVF 1/2 NS @ 80 CC/HR. INFUSING WELL. BG 96 NO INSULIN COVERAGE NEEDED. ALL NEEDS ATTENDED AND ANTICIPATED. PAIN MANAGEMENT ORDERED. CALL LIGHT WITHIN REACH WILL ENDORSE ACCORDINGLY
[2018-06-24] MEDS ORDERED: BISACODYL 10 MG SUPP.RECT RC ONE (19:15)
[2018-06-24] MEDS ORDERED: BISACODYL 10 MG SUPP.RECT RC PRN (19:15)
[2018-06-24 19:30] VITALS: BP 103/65
[2018-06-24] MEDS: INSULIN REGULAR, HUMAN 300 UNIT/3 ML VIAL SQ PRN (20:44)
[2018-06-24] MEDS: INSULIN GLARGINE,HUM 300 UNITS/3 ML CARTRIDGE SQ SCH (20:45)
[2018-06-24] MEDS: DOCUSATE SODIUM 100 MG CAPSULE PO SCH (20:54)
[2018-06-25 03:33] VITALS: BP 102/58
[2018-06-25] MEDS: MORPHINE SULFATE 4 MG/1 ML DISP.SYRIN IV PRN ×4 (04:34→19:35)
[2018-06-25] MEDS: BLOOD SUGAR DIAGNOSTIC 1 EACH STRIP VI SCH ×6 (06:11→21:13)
[2018-06-25] MEDS: PANTOPRAZOLE SODIUM 40 MG TABLET.DR PO SCH (06:23)
--- NOTE | 2018-06-25 07:02 | NUR ---
Patient rested well in between care; c/o pain, medicated with morphine as charted; blood duagr low at 57 this Am apple juice and khari crackers, went up to 64, pt refused to take crackers and requested that she take D50; D50 given , last BS is 215.
[2018-06-25] MEDS: FERROUS SULFATE 325 MG TABEC PO SCH (08:50)
[2018-06-25] MEDS: DIVALPROEX 500 MG TABLET.DR PO SCH ×2 (08:50→17:27)
[2018-06-25] MEDS: INSULIN REGULAR, HUMAN 300 UNIT/3 ML VIAL SQ PRN ×2 (08:57→20:24)
[2018-06-25] MEDS: IV 1/2NS 1000 ML 1,000 ML IV PRN ×2 (09:28→22:14)
[2018-06-25 09:54] LABS: BASOPHILS % (AUTO) 0.4 % (0.0-2.0); EOSINOPHILS # (AUTO) 0.1 K/uL (0.0-0.7); EOSINOPHILS % (AUTO) 1.4 % (0.0-7.0); HEMATOCRIT 28.1 % (31.2-41.9); HEMOGLOBIN 9.9 g/dL (10.9-14.3); LYMPHOCYTES # (AUTO) 1.9 K/uL (20.0-40.0); LYMPHOCYTES % (AUTO) 30.7 % (20.5-51.5); MEAN CORPUSCULAR HEMOGLOBIN 33.2 uug (24.7-32.8); MEAN CORPUSCULAR HGB CONC 35 g/dL (32.3-35.6); MEAN CORPUSCULAR VOLUME 94.4 fL (75.5-95.3); MONOCYTES # (AUTO) 0.3 K/uL (2.0-10.0); MONOCYTES % (AUTO) 5.6 % (0.0-11.0); NEUTROPHILS # (AUTO) 3.9 K/uL (1.8-8.9); NEUTROPHILS % (AUTO) 61.9 % (38.5-71.5); PLATELET COUNT (AUTO) 296 K/uL (179-408); RED BLOOD CELL COUNT(AUTO) 2.98 MIL/uL (3.63-4.92); WHITE BLOOD COUNT (AUTO) 6.3 K/uL (3.8-11.8)
[2018-06-25 10:08] LABS: CREATININE 0.7 mg/dL (0.6-1.3); MAGNESIUM 1.9 mg/dL (1.8-2.4); PHOSPHOROUS 3.5 mg/dL (2.5-4.9); POTASSIUM 3.8 mmol/L (3.5-5.1)
[2018-06-25 11:04] VITALS: BP 76/40
[2018-06-25] MEDS ORDERED: IV NORMAL SALINE 500 ML IV ONE (12:15)
[2018-06-25 15:24] VITALS: BP 92/48
--- NOTE | 2018-06-25 18:42 | NUR ---
Patient has been cooperative with care, frequent complaints of pain in left arm and leg, reported to Dr. Wilson. Patient had a mild episode of hypoglycemia, which was treated with apple juice x2. Patient also had an episode of hypotension post morphine administration. Patient was given bolus 500cc/NS. Currently patient in bed, no distress noted at this time, bed in low position, side rails upx2. call light in reach.
[2018-06-25 20:00] VITALS: BP 98/55
[2018-06-25] MEDS: DOCUSATE SODIUM 100 MG CAPSULE PO SCH (20:06)
[2018-06-25] MEDS: INSULIN GLARGINE,HUM 300 UNITS/3 ML CARTRIDGE SQ SCH (20:16)
[2018-06-26] MEDS: MORPHINE SULFATE 4 MG/1 ML DISP.SYRIN IV PRN ×4 (01:03→19:48)
[2018-06-26 04:22] VITALS: BP 104/60
[2018-06-26] MEDS: PANTOPRAZOLE SODIUM 40 MG TABLET.DR PO SCH (06:14)
[2018-06-26] MEDS: BLOOD SUGAR DIAGNOSTIC 1 EACH STRIP VI SCH ×4 (06:21→21:42)
[2018-06-26 08:38] VITALS: BP 90/51
[2018-06-26] MEDS: DIVALPROEX 500 MG TABLET.DR PO SCH ×2 (08:41→17:46)
[2018-06-26] MEDS: FERROUS SULFATE 325 MG TABEC PO SCH (08:41)
[2018-06-26] MEDS: IV 1/2NS 1000 ML 1,000 ML IV PRN ×2 (10:37→23:03)
[2018-06-26 16:30] VITALS: BP 84/46
[2018-06-26 16:45] VITALS: BP 142/87
--- NOTE | 2018-06-26 17:45 | NUR ---
NOTIFIED MD REGARDING PATIENT'S DECREASED/LOW BP. NO NEW ORDERS RECEIVED. WILL CONTINUE TO MONITOR. PATIENT IS ALERT, RESPONSIVE, IN NO DISTRESS, NO C/O OF DIZZINESS.
[2018-06-26] MEDS: INSULIN REGULAR, HUMAN 300 UNIT/3 ML VIAL SQ PRN (17:46)
[2018-06-26 19:48] VITALS: BP 114/74
[2018-06-26] MEDS: DOCUSATE SODIUM 100 MG CAPSULE PO SCH (20:08)
[2018-06-26] MEDS: INSULIN GLARGINE,HUM 300 UNITS/3 ML CARTRIDGE SQ SCH (21:00)
[2018-06-26] MEDS ORDERED: INSULIN GLARGINE,HUM 300 UNITS/3 ML CARTRIDGE SQ ONE (21:45)
[2018-06-27] MEDS: MORPHINE SULFATE 4 MG/1 ML DISP.SYRIN IV PRN ×2 (02:03→12:26)
[2018-06-27 05:28] VITALS: BP 103/66
[2018-06-27 06:34] LABS: BILIRUBIN,TOTAL 0.1 mg/dL (0.2-1.0); CREATININE 0.8 mg/dL (0.6-1.3); PHOSPHOROUS 3.3 mg/dL (2.5-4.9); POTASSIUM 4.1 mmol/L (3.5-5.1); TOTAL PROTEIN, SERUM 6.2 g/dL (6.4-8.2)
[2018-06-27] MEDS: PANTOPRAZOLE SODIUM 40 MG TABLET.DR PO SCH (06:35)
[2018-06-27] MEDS: BLOOD SUGAR DIAGNOSTIC 1 EACH STRIP VI SCH ×2 (06:46→12:08)
[2018-06-27 06:59] LABS: EOSINOPHILS # (AUTO) 0.1 K/uL (0.0-0.7); HEMATOCRIT 25.5 % (31.2-41.9); MONOCYTES # (AUTO) 0.3 K/uL (2.0-10.0); NEUTROPHILS # (AUTO) 2.8 K/uL (1.8-8.9); RED BLOOD CELL COUNT(AUTO) 2.71 MIL/uL (3.63-4.92)
[2018-06-27 07:07] LABS: BASOPHILS % (AUTO) 0.5 % (0.0-2.0); EOSINOPHILS % (AUTO) 2.8 % (0.0-7.0); HEMOGLOBIN 8.9 g/dL (10.9-14.3); LYMPHOCYTES # (AUTO) 2.1 K/uL (20.0-40.0); MEAN CORPUSCULAR HEMOGLOBIN 32.7 uug (24.7-32.8); MEAN CORPUSCULAR HGB CONC 35 g/dL (32.3-35.6); MEAN CORPUSCULAR VOLUME 94.2 fL (75.5-95.3); MONOCYTES % (AUTO) 5.4 % (0.0-11.0); NEUTROPHILS % (AUTO) 52.3 % (38.5-71.5); WHITE BLOOD COUNT (AUTO) 5.4 K/uL (3.8-11.8)
[2018-06-27 07:09] LABS: PLATELET COUNT (AUTO) 218 K/uL (179-408)
[2018-06-27] MEDS ORDERED: SWABABLE VALVE TRANSFER SET EA MC ONE (07:20)
[2018-06-27] MEDS ORDERED: IV NORMAL SALINE 250 ML IV ONE (07:21)
[2018-06-27] MEDS ORDERED: IOHEXOL 300MG/ML 100 ML INFUS..BTL ONE (07:21)
[2018-06-27 08:00] VITALS: BP 92/52
[2018-06-27] MEDS: DIVALPROEX 500 MG TABLET.DR PO SCH (08:10)
[2018-06-27] MEDS: FERROUS SULFATE 325 MG TABEC PO SCH (08:10)
[2018-06-27] MEDS ORDERED: DOCU100C36 PO (13:47)
[2018-06-27] MEDS ORDERED: FERR325T28 PO (14:23)
[2018-06-27 15:03] VITALS: BP 98/62
--- NOTE | 2018-06-27 16:25 | NUR ---
PT LEFT VIA PRIVATE VEHICLE WITH STEPHANIE HER FATHER.SHE D/C HOME. PT DC WITH ALL EXIT PACKET, BELONGINGS, AND VALUABLES. MIDLINE REMOVED ID BAND REMOVED. PT STABLE TO DC. PT AGREES TO FOLLOW UP WITH HER OWN PCP.
[2018-06-27 17:14] VITALS: BP 126/77
== END 2018-06-27 16:50 | disposition home health service (06) | DRG 357 ==
LOC: ER 10:07 → MED 14:28
PROVIDERS: ADMIT Internal Medicine; ATTEND Internal Medicine
PROC: 05HY33Z Insertion of Infusion Device into Upper Vein, Percutaneous Approach (ICD-10-PCS; principal; 2018-06-21)
PROC: 0JBR0ZZ Excision of Left Foot Subcutaneous Tissue and Fascia, Open Approach (ICD-10-PCS; 2018-06-22)
DX: K56.41 Fecal impaction (principal); N13.4 Hydroureter; E10.43 Type 1 diabetes mellitus with diabetic autonomic (poly)neuropathy; E10.42 Type 1 diabetes mellitus with diabetic polyneuropathy; E10.621 Type 1 diabetes mellitus with foot ulcer; K31.84 Gastroparesis; L97.522 Non-pressure chronic ulcer of other part of left foot with fat layer exposed; Z79.4 Long term (current) use of insulin; E66.9 Obesity, unspecified; Z68.29 Body mass index [BMI] 29.0-29.9, adult; Z71.3 Dietary counseling and surveillance; N31.9 Neuromuscular dysfunction of bladder, unspecified; Z82.49 Family history of ischemic heart disease and other diseases of the circulatory system; Z83.3 Family history of diabetes mellitus; Z86.73 Personal history of transient ischemic attack (TIA), and cerebral infarction without residual deficits; Z91.14 Patient's other noncompliance with medication regimen; G40.909 Epilepsy, unspecified, not intractable, without status epilepticus; Z79.82 Long term (current) use of aspirin; Z87.440 Personal history of urinary (tract) infections; K44.9 Diaphragmatic hernia without obstruction or gangrene; I70.0 Atherosclerosis of aorta; E78.5 Hyperlipidemia, unspecified; E03.9 Hypothyroidism, unspecified; Z87.442 Personal history of urinary calculi; I12.9 Hypertensive chronic kidney disease with stage 1 through stage 4 chronic kidney disease, or unspecified chronic kidney disease; E10.22 Type 1 diabetes mellitus with diabetic chronic kidney disease; N18.9 Chronic kidney disease, unspecified; K64.9 Unspecified hemorrhoids; D64.9 Anemia, unspecified; F29 Unspecified psychosis not due to a substance or known physiological condition; R07.89 Other chest pain
CPT/HCPCS: 36415; 36569; 70030-TC; 71045; 76700; 80164; 83550; 83605; 83735; 84100; 84443; 84550; 84703; 85025; 85730; 87040; 87086; 93005; A4663; G0378; J1815; J2270; J2405; J2543; J3490; J7030; J7040; J7050; Q9967

== ENCOUNTER 2018-10-04 17:28 | Inpatient (IN) | payer MEDICARE, MEDICAID ==
[~2018-10-04] VITALS: Ht 160 cm; Wt 74.8 kg
[~2018-10-04 17:28] MED LIST changes: -ACET-1467 PO; +ALPR0.5T8 PO; -ASPI-1094 PO; -ASPI-605 PO; +BUTA1CAP17 PO; -CEPH-570 PO; -CLON1TAB12 PO; +DOCU100C36 PO; -FERR-38 PO; -LEVO500T2 PO; -LURA20TA PO; -METO50TA16 PO; +OXCA300T15 PO; +TOPI25TA49 PO; -ZOLP10TA2 PO
[2018-10-04] MEDS ORDERED: IV NORMAL SALINE 1000 ML BAG IV ONE (17:45)
[2018-10-04] MEDS ORDERED: ONDANSETRON 4 MG/2 ML VIAL IV ONE (17:45)
[2018-10-04] MEDS ORDERED: METO-356 PO (17:57)
[2018-10-04] MEDS ORDERED: ZOLP10TA6 PO (17:57)
[2018-10-04] MEDS ORDERED: ATOR40TA PO (17:57)
[2018-10-04] MEDS ORDERED: GABA600T12 PO (17:57)
[2018-10-04] MEDS ORDERED: ONDANSETRON 4 MG/2 ML VIAL ONE (18:15)
[2018-10-04 18:18] LABS: BASOPHILS % (AUTO) 0.4 % (0.0-2.0); EOSINOPHILS % (AUTO) 0.7 % (0.0-7.0); HEMATOCRIT 36.3 % (31.2-41.9); HEMOGLOBIN 12.4 g/dL (10.9-14.3); LYMPHOCYTES # (AUTO) 1.5 K/uL (20.0-40.0); LYMPHOCYTES % (AUTO) 27.1 % (20.5-51.5); MEAN CORPUSCULAR HEMOGLOBIN 31.7 uug (24.7-32.8); MEAN CORPUSCULAR HGB CONC 34 g/dL (32.3-35.6); MEAN CORPUSCULAR VOLUME 92.7 fL (75.5-95.3); MONOCYTES # (AUTO) 0.3 K/uL (2.0-10.0); MONOCYTES % (AUTO) 5.7 % (0.0-11.0); NEUTROPHILS # (AUTO) 3.6 K/uL (1.8-8.9); NEUTROPHILS % (AUTO) 66.1 % (38.5-71.5); PLATELET COUNT (AUTO) 275 K/uL (179-408); RED BLOOD CELL COUNT(AUTO) 3.92 MIL/uL (3.63-4.92); WHITE BLOOD COUNT (AUTO) 5.5 K/uL (3.8-11.8)
--- NOTE | 2018-10-04 18:20 | NUR ---
pt co cp 02/16, no md tammie notified.
[2018-10-04 18:21] LABS: CREATININE 0.9 mg/dL (0.6-1.3); POTASSIUM 4.2 mmol/L (3.5-5.1)
[2018-10-04 18:26] LABS: BILIRUBIN,DIRECT 0.1 mg/dL (0.0-0.2); BILIRUBIN,TOTAL 0.2 mg/dL (0.2-1.0); TOTAL PROTEIN, SERUM 8.5 g/dL (6.4-8.2)
--- NOTE | 2018-10-04 19:02 | NUR ---
pt resting, no sign of distress, talking over the phone. vss.
[2018-10-04] MEDS ORDERED: MORPHINE SULFATE 2 MG/1 ML DISP.SYRIN IV ONE (19:30)
[2018-10-04] MEDS ORDERED: PANTOPRAZOLE SODIUM 40 MG VIAL IV ONE (19:30)
--- NOTE | 2018-10-04 19:30 | NUR ---
Pt provided urine sample, sent to lab.
[2018-10-04] MEDS ORDERED: MORPHINE SULFATE 2 MG/1 ML DISP.SYRIN ONE (19:38)
[2018-10-04 19:39] LABS: *BILIRUBIN,URIN NEGATIVE (NEGATIVE); *BLOOD, URINE NEGATIVE (NEGATIVE); *CLARITY,URINE CLEAR (CLEAR); *COLOR,URINE YELLOW (YELLOW); *KETONES,URINE NEGATIVE (NEGATIVE); *UROBILINOGEN,URINE 0.2 E.U./dl (NORMAL); LEUKOCYTE ESTERASE ,URINE TRACE (NEGATIVE); NITRITE, URINE NEGATIVE (NEGATIVE); UGLUCOSE 2+ (NEGATIVE)
[2018-10-04] MEDS ORDERED: PANTOPRAZOLE SODIUM 40 MG VIAL ONE (19:39)
[2018-10-04 19:43] LABS: *URINE HCG, QUAL NEGATIVE (NEGATIVE)
[2018-10-04 19:47] LABS: SQUAMOUS EPITHELIAL CELL,UR FEW /HPF (NONE SEEN); YEAST,URINE MODERATE /HPF (NONE SEEN)
--- NOTE | 2018-10-04 19:48 | NUR ---
Report given to Kady GIBSON Tele.
--- NOTE | 2018-10-04 20:00 | NUR ---
Admitted a 38 year old female with diagnosis of CHEST PAIN, FUNGAL UTI. Patient AAOx4. Patient stated feeling nauseous and having diarrhea for past few weeks accompanied with pain in abd/chest. No SOB. IV on right AC intact and patent. Tele monitors placed. SR on tele monitor. Routine admission care done. Plan of care initiated. Waiting for orders at this time. Safety measures implemented. Comfort provided. All needs met. Call light within reach. Will continue to monitor.
[2018-10-04] MEDS: DOCUSATE SODIUM 100 MG CAPSULE PO SCH (21:00)
[2018-10-04] MEDS ORDERED: INSULIN REGULAR, HUMAN 300 UNIT/3 ML VIAL SQ PRN (21:00)
[2018-10-04] MEDS ORDERED: DEXTROSE 50% 50 ML DISP.SYRIN IV PRN (21:00)
[2018-10-04] MEDS ORDERED: ACETAMINOPHEN 325 MG TABLET PO PRN (21:00)
[2018-10-04] MEDS ORDERED: NITROGLYCERIN 0.4 MG/TAB BOTTLE SL PRN (21:00)
[2018-10-04 21:34] VITALS: BP 145/101
[2018-10-04] MEDS: ONDANSETRON 4 MG/2 ML VIAL IV PRN (22:13)
[2018-10-04] MEDS: MORPHINE SULFATE 2 MG/1 ML DISP.SYRIN IV PRN (22:14)
[2018-10-04] MEDS ORDERED: FLUCONAZOLE 200 MG/100 ML PIGGYBACK ONE (22:16)
[2018-10-04] MEDS ORDERED: INSULIN GLARGINE,HUM 300 UNITS/3 ML CARTRIDGE SQ ONE (22:17)
[2018-10-04] MEDS ORDERED: INSULIN REGULAR, HUMAN 300 UNIT/3 ML VIAL ONE (22:17)
[2018-10-04] MEDS: BLOOD SUGAR DIAGNOSTIC 1 EACH STRIP VI SCH (22:26)
[2018-10-04] MEDS: INSULIN GLARGINE,HUM 300 UNITS/3 ML CARTRIDGE SQ SCH (22:32)
[2018-10-04] MEDS: FLUCONAZOLE 200 MG/NS 100ML IV 100 MG in PREMIXED 1 EACH IV SCH (22:35)
[2018-10-05 00:07] VITALS: BP 132/83
[2018-10-05] MEDS: ALPRAZOLAM 0.5 MG TABLET PO PRN ×2 (00:58→22:58)
[2018-10-05] MEDS: MORPHINE SULFATE 2 MG/1 ML DISP.SYRIN IV PRN ×4 (04:18→22:54)
[2018-10-05 04:56] VITALS: BP 105/61
[2018-10-05] MEDS: PANTOPRAZOLE SODIUM 40 MG TABLET.DR PO SCH (06:17)
[2018-10-05] MEDS: BLOOD SUGAR DIAGNOSTIC 1 EACH STRIP VI SCH ×4 (06:32→20:41)
--- NOTE | 2018-10-05 06:34 | NUR ---
Patient rested well in between care and is currently sleeping comfortably in bed. No change in status. Comfort and safety maintained at all times. All needs met. Call light within reach. Will endorse to incoming shift accordingly.
--- NOTE | 2018-10-05 07:10 | NUR ---
RECEIVED PATIENT IN BED. PATIENT AOX4. PATIENT DENIES PAIN OR SOB. ALL NEEDS MET AT THIS TIME. SAFETY AND FALL PREVENTION IN PLACE. BED IN LOW POSITION AND LOCKED. CALL LIGHT IN REACH. WILL CONTINUE TO MONITOR.
[2018-10-05] MEDS ORDERED: Medication Not On Formulary EA (Gabapentin 1 TAB) PO SCH (09:00)
[2018-10-05] MEDS: TOPIRAMATE 25 MG TABLET PO SCH (09:33)
[2018-10-05] MEDS: GABAPENTIN 300 MG CAPSULE PO SCH ×3 (09:33→17:37)
[2018-10-05] MEDS: OXCARBAZEPINE 300 MG TABLET PO SCH (09:34)
[2018-10-05] MEDS: DIVALPROEX 500 MG TABLET.DR PO SCH ×2 (09:34→17:37)
[2018-10-05] MEDS: METOPROLOL SUCCINATE XL 25 MG TAB.SR.24H PO SCH (09:39)
[2018-10-05] MEDS: FERROUS SULFATE 325 MG TABEC PO SCH (09:40)
--- NOTE | 2018-10-05 13:24 | NUR ---
PATIENT STATED THAT SHE TAKES GABAPENTIN 600MG PO BID AT HOME. HOME MED RECON HAS BEEN CHANGED. GABAPENTIN SCHEDULED FOR 1300 HAD NOT BEEN GIVEN PATENT REFUSED.
[2018-10-05 15:08] VITALS: BP 101/65
[2018-10-05 15:36] LABS: BASOPHILS % (AUTO) 0.5 % (0.0-2.0); EOSINOPHILS % (AUTO) 0.8 % (0.0-7.0); HEMATOCRIT 35.6 % (31.2-41.9); HEMOGLOBIN 12.3 g/dL (10.9-14.3); LYMPHOCYTES # (AUTO) 1.8 K/uL (20.0-40.0); LYMPHOCYTES % (AUTO) 32.3 % (20.5-51.5); MEAN CORPUSCULAR HGB CONC 34 g/dL (32.3-35.6); MEAN CORPUSCULAR VOLUME 93.1 fL (75.5-95.3); MONOCYTES # (AUTO) 0.3 K/uL (2.0-10.0); MONOCYTES % (AUTO) 6.3 % (0.0-11.0); NEUTROPHILS # (AUTO) 3.3 K/uL (1.8-8.9); NEUTROPHILS % (AUTO) 60.1 % (38.5-71.5); PLATELET COUNT (AUTO) 263 K/uL (179-408); RED BLOOD CELL COUNT(AUTO) 3.83 MIL/uL (3.63-4.92); WHITE BLOOD COUNT (AUTO) 5.4 K/uL (3.8-11.8)
[2018-10-05 15:49] LABS: BILIRUBIN,TOTAL 0.2 mg/dL (0.2-1.0); MAGNESIUM 1.7 mg/dL (1.8-2.4); PHOSPHOROUS 3.7 mg/dL (2.5-4.9); POTASSIUM 3.8 mmol/L (3.5-5.1); TOTAL PROTEIN, SERUM 7.2 g/dL (6.4-8.2)
--- NOTE | 2018-10-05 18:12 | NUR ---
PATIENT AOX4, COMPLIANT WITH MEDICATION AND ALL CARE. PATIENT COMPLAINS OF ABDOMINAL PAIN AND CHEST PAIN AND PAIN MEDICATION IS GIVEN ORDERED. VITAL SIGNS STABLE THROUGHOUT THE SHIFT. SAFETY AND FALL PREVENTION AND SZ PRECAUTIONS IN PLACE.
[2018-10-05 20:00] VITALS: BP 95/57
[2018-10-05] MEDS: DOCUSATE SODIUM 100 MG CAPSULE PO SCH (20:27)
[2018-10-05] MEDS: FLUCONAZOLE 200 MG/NS 100ML IV 100 MG in PREMIXED 1 EACH IV SCH (20:40)
[2018-10-05] MEDS: INSULIN GLARGINE,HUM 300 UNITS/3 ML CARTRIDGE SQ SCH (20:46)
[2018-10-06] VITALS (10 sets, daily range): BP systolic 85–109; BP diastolic 42–65
[2018-10-06] MEDS: MORPHINE SULFATE 2 MG/1 ML DISP.SYRIN IV PRN ×4 (06:11→22:09)
[2018-10-06] MEDS: PANTOPRAZOLE SODIUM 40 MG TABLET.DR PO SCH (06:11)
[2018-10-06] MEDS: BLOOD SUGAR DIAGNOSTIC 1 EACH STRIP VI SCH ×4 (06:53→21:57)
--- NOTE | 2018-10-06 07:07 | NUR ---
Nurse Notes: received report from the night nurse Jorge Layton RN, alert and oriented. in no respiratory distress. IV is hep lock youth nutritional monitor sinus rhythm
--- NOTE | 2018-10-06 07:25 | NUR ---
WOUND CARE CONSULT WOUND CARE RECEIVED CONSULT FOR WOUND ON LEFT GREAT TOE. WOUND CARE WILL DEFER CONSULT AND TREATMENT PLANS TO DPM DR RUBIO WHO IS CURRENTLY FOLLOWING THIS PATIENT. PATIENT WITH MAXIMO AT 22, WILL SEE PRN.
[2018-10-06] MEDS: METOPROLOL SUCCINATE XL 25 MG TAB.SR.24H PO SCH (09:00)
[2018-10-06] MEDS: FERROUS SULFATE 325 MG TABEC PO SCH (09:25)
[2018-10-06] MEDS: GABAPENTIN 300 MG CAPSULE PO SCH ×3 (09:25→17:16)
[2018-10-06] MEDS: DIVALPROEX 500 MG TABLET.DR PO SCH ×2 (09:25→17:16)
[2018-10-06] MEDS: TOPIRAMATE 25 MG TABLET PO SCH (09:26)
[2018-10-06] MEDS: OXCARBAZEPINE 300 MG TABLET PO SCH (10:28)
[2018-10-06] MEDS ORDERED: IV NORMAL SALINE 500 ML IV ONE (11:30)
--- NOTE | 2018-10-06 11:49 | NUR ---
Nurse Notes: patient had low BP at 0920, 89/45. then 94/54@ 1113, saline bolus 500 cc given wide open. Morphine 2 mg IV will be given when BP raises.
--- NOTE | 2018-10-06 13:08 | NUR ---
Nurse Notes: medicated for pain with morphine 2 mg IV, has no appetite for lunch, was able to eat few bites of meat loaf.
[2018-10-06] MEDS ORDERED: IOHEXOL 300MG/ML 100 ML INFUS..BTL ONE (18:22)
[2018-10-06] MEDS ORDERED: SWABABLE VALVE TRANSFER SET EA MC ONE (18:22)
[2018-10-06] MEDS ORDERED: IV NORMAL SALINE 250 ML IV ONE (18:22)
--- NOTE | 2018-10-06 20:00 | NUR ---
PATIENT RECEIVED ASLEEP IN BED RESTING COMFORTABLY. NO VISIBLE SIGNS OF ACUTE DISTRESS OR DISCOMFORT NOTED OR OBSERVED. IV SITE IS PATENT AND INTACT ON RIGHT AC SITE. SAFETY AND FALL PRECAUTIONS ARE IN PLACE. CALL LIGHT AND PERSONAL ITEMS WITHIN REACH AT ALL TIMES. WILL CONTINUE TO MONITOR.
[2018-10-06] MEDS: INSULIN GLARGINE,HUM 300 UNITS/3 ML CARTRIDGE SQ SCH (21:00)
--- NOTE | 2018-10-06 21:00 | NUR ---
HS BLOOD GLUCOSE 72, I ASKED PATIENT IF SHE COULD EAT SOMETHING DUE TO BLOOD GLUCOSE RESULTS, HOWEVER PATIENT SAID SHE CANNOT BECAUSE OF HER ABDOMINAL PAIN. I HELD PRESCRIBED LANTUS DUE TO PATIENT NOT EATING R/T VERBALIZED ABDOMINAL PAIN.
[2018-10-06] MEDS: DOCUSATE SODIUM 100 MG CAPSULE PO SCH (21:48)
[2018-10-06] MEDS: FLUCONAZOLE 200 MG/NS 100ML IV 100 MG in PREMIXED 1 EACH IV SCH (21:49)
[2018-10-06] MEDS: ALPRAZOLAM 0.5 MG TABLET PO PRN (22:53)
[2018-10-07] MEDS: MORPHINE SULFATE 2 MG/1 ML DISP.SYRIN IV PRN ×4 (03:37→21:46)
--- NOTE | 2018-10-07 03:51 | NUR ---
PATIENT COMPLAINING OF ABDOMINAL PAIN 02/16. PROVIDED PRESCRIBED PAIN MEDICATION VIA IV SITE. PATIENT ALSO REQUESTING XANAX. I EXPLAINED TO PATIENT THAT SHE HAS ALREADY RECEIVED XANAX AT 2253 AND THE ORDER IS FOR BID PRN, SO WOULD NOT BE ABLE TO RECEIVE AGAIN UNTIL 1100 THIS MORNING. PATIENT SAID OKAY.
[2018-10-07 05:55] VITALS: BP 96/55
[2018-10-07] MEDS: PANTOPRAZOLE SODIUM 40 MG TABLET.DR PO SCH (06:31)
--- NOTE | 2018-10-07 06:45 | NUR ---
PATIENT SLEPT INTERMITTENTLY THROUGHOUT NIGHT WITH ALL COMPLAINTS OF PAIN RELIEVED BY PRESCRIBED PAIN MEDICATION. PATIENT COMPLAINED ABOUT ANXIETY AND WAS PROVIDED PRESCRIBED ANTIANXIETY MEDICATION ORDERED. VS ARE WNL BP 96/55, HR 77, 02 SAT AT 97%. ALL SAFETY AND FALL PRECAUTION MEASURES REMAIN IN PLACE. CALL LIGHT AND PERSONAL ITEMS ARE WITHIN REACH AT ALL TIMES. WILL PROVIDE REPORT TO AM SHIFT.
[2018-10-07] MEDS: DIVALPROEX 500 MG TABLET.DR PO SCH ×2 (08:14→17:09)
[2018-10-07] MEDS: GABAPENTIN 300 MG CAPSULE PO SCH ×4 (08:15→17:08)
[2018-10-07] MEDS: TOPIRAMATE 25 MG TABLET PO SCH (08:15)
[2018-10-07] MEDS: FERROUS SULFATE 325 MG TABEC PO SCH (08:16)
[2018-10-07] MEDS: OXCARBAZEPINE 300 MG TABLET PO SCH (08:16)
[2018-10-07] MEDS: ALPRAZOLAM 0.5 MG TABLET PO PRN ×2 (09:48→17:14)
--- NOTE | 2018-10-07 09:55 | NUR ---
Patient refusing wound care of Left foot as ordered, states the Doctor told her he will come in today to change the dressing.
--- NOTE | 2018-10-07 10:56 | NUR ---
Per brian Morales for lab to draw in lower extremities.
--- NOTE | 2018-10-07 11:06 | NUR ---
Per Dr Fisher: Orders for NPO, dx: GI consult Per Dr Fisher: Orders to DC long acting insulin, dx: pt is NPO noted and carried out
[2018-10-07 11:50] VITALS: BP 94/66
[2018-10-07] MEDS: BLOOD SUGAR DIAGNOSTIC 1 EACH STRIP VI SCH ×2 (12:09→17:52)
--- NOTE | 2018-10-07 12:24 | NUR ---
Patient NPO, blood sugar 52. Dextrose 50 unavailable called Shannan from pharmacy, she will being up an equivalent for patient. Patient asymptomatic. flat folding machine operator Mary Ellen made aware.
[2018-10-07] MEDS: DEXTROSE 50% 50 ML DISP.SYRIN IV PRN ×2 (12:28→18:24)
[2018-10-07] MEDS: POTASSIUM CHLORIDE 20 MEQ in IV D5/ 0.9% NACL 1,000 ML IV PRN (14:11)
[2018-10-07] MEDS: INSULIN REGULAR, HUMAN 300 UNIT/3 ML VIAL SQ PRN ×2 (14:20→19:52)
[2018-10-07 15:17] VITALS: BP 101/61
[2018-10-07 16:09] LABS: BASOPHILS % (AUTO) 0.4 % (0.0-2.0); EOSINOPHILS % (AUTO) 0.5 % (0.0-7.0); HEMATOCRIT 30.3 % (31.2-41.9); HEMOGLOBIN 10.3 g/dL (10.9-14.3); LYMPHOCYTES # (AUTO) 1.4 K/uL (20.0-40.0); LYMPHOCYTES % (AUTO) 24.9 % (20.5-51.5); MEAN CORPUSCULAR HEMOGLOBIN 31.8 uug (24.7-32.8); MEAN CORPUSCULAR HGB CONC 34 g/dL (32.3-35.6); MEAN CORPUSCULAR VOLUME 93.4 fL (75.5-95.3); MONOCYTES # (AUTO) 0.3 K/uL (2.0-10.0); MONOCYTES % (AUTO) 5.8 % (0.0-11.0); NEUTROPHILS # (AUTO) 3.9 K/uL (1.8-8.9); NEUTROPHILS % (AUTO) 68.4 % (38.5-71.5); PLATELET COUNT (AUTO) 195 K/uL (179-408); RED BLOOD CELL COUNT(AUTO) 3.25 MIL/uL (3.63-4.92); WHITE BLOOD COUNT (AUTO) 5.6 K/uL (3.8-11.8)
[2018-10-07 16:13] LABS: CREATININE 0.9 mg/dL (0.6-1.3); MAGNESIUM 1.9 mg/dL (1.8-2.4); PHOSPHOROUS 2.8 mg/dL (2.5-4.9); POTASSIUM 3.7 mmol/L (3.5-5.1)
--- NOTE | 2018-10-07 18:13 | NUR ---
Patient NPO, blood sugar 54. Dextrose 50 unavailable called pharmacy, she will being up an equivalent for patient. Patient asymptomatic.
[2018-10-07] MEDS ORDERED: DEXTROSE 10 % IN WATER 250 ML BAG IV ONE (18:16)
--- NOTE | 2018-10-07 18:35 | NUR ---
Patient resting in bed comfortably, no complaints of pain or distress noted. Right upper arm midline patent, dressing clean dry and intact. Patient currently has Dextrose 50% equivalent running, continuous IV fluids paused. Will endorse oncoming shift to continue current fluids until infused and reconnect continuous IV fluids ordered. Will endorse care to oncoming shift.
--- NOTE | 2018-10-07 20:00 | NUR ---
RECEIVED PATIENT SLEEPING IN BED, RESTING COMFORTABLY, EASY TO AROUSE. NO COMPLAINTS OF PAIN OR DISCOMFORT AT THIS TIME. PATIENT HAS NEW MIDLINE ON RIGHT UPPER ARM WHICH IS PATENT AND INTACT. ALL SAFETY, FALL PRECAUTION, AND SEIZURE PRECAUTIONS ARE IN PLACE. PERSONAL ITEMS AND CALL LIGHT ARE WITHIN REACH AT ALL TIMES. WILL CONTINUE TO MONITOR.
[2018-10-07 20:40] VITALS: BP 114/69
[2018-10-07] MEDS: DOCUSATE SODIUM 100 MG CAPSULE PO SCH (21:45)
[2018-10-08] MEDS: BLOOD SUGAR DIAGNOSTIC 1 EACH STRIP VI SCH ×4 (00:02→17:03)
[2018-10-08] MEDS: MORPHINE SULFATE 2 MG/1 ML DISP.SYRIN IV PRN ×4 (01:56→21:38)
[2018-10-08] MEDS: POTASSIUM CHLORIDE 20 MEQ in IV D5/ 0.9% NACL 1,000 ML IV PRN ×2 (03:55→17:09)
[2018-10-08 05:22] VITALS: BP 105/60
[2018-10-08 05:23] VITALS: BP 105/60
[2018-10-08] MEDS: INSULIN REGULAR, HUMAN 300 UNIT/3 ML VIAL SQ PRN ×2 (06:49→17:05)
[2018-10-08] MEDS: PANTOPRAZOLE SODIUM 40 MG TABLET.DR PO SCH (06:52)
[2018-10-08] MEDS: GABAPENTIN 300 MG CAPSULE PO SCH ×3 (08:20→16:18)
[2018-10-08] MEDS: OXCARBAZEPINE 300 MG TABLET PO SCH (08:20)
[2018-10-08] MEDS: DIVALPROEX 500 MG TABLET.DR PO SCH ×2 (08:20→16:18)
[2018-10-08] MEDS: TOPIRAMATE 25 MG TABLET PO SCH (08:20)
[2018-10-08] MEDS: FERROUS SULFATE 325 MG TABEC PO SCH (08:20)
[2018-10-08 12:53] VITALS: BP 107/70
[2018-10-08] MEDS: ALPRAZOLAM 0.5 MG TABLET PO PRN ×2 (12:55→23:09)
[2018-10-08 15:41] VITALS: BP 114/69
[2018-10-08] MEDS: LEVOFLOXACIN 500 MG/D5W 500 MG in PREMIXED 1 EACH IV SCH (18:42)
[2018-10-08 20:18] VITALS: BP 115/70
[2018-10-08] MEDS: DOCUSATE SODIUM 100 MG CAPSULE PO SCH (21:37)
[2018-10-08] MEDS: METRONIDAZOLE 500 MG/NS 100ML 500 MG in PREMIXED 1 EACH IV SCH (22:23)
[2018-10-09] MEDS: BLOOD SUGAR DIAGNOSTIC 1 EACH STRIP VI SCH ×4 (00:08→16:50)
--- NOTE | 2018-10-09 00:15 | NUR ---
PATIENT COMPLAINING OF CHEST PAIN @ 7/10 THAT RADIATES TO SHOULDER, NAUSEA, AND FEELING CLAMMY. VS TAKEN: BP 133/79, HR 79, O2 SAT 95%. EPIC FEATHER TRIMMER MD NOTIFIED. NEW ORDER FOR STAT EKG AND TROPONIN LEVEL PLACED AND CARRIED OUT. WILL CONTACT MD WITH RESULTS.
--- NOTE | 2018-10-09 01:44 | NUR ---
RECEIVED EKG REPORT RESULTS NSR AND TROPONIN LAB RESULTS < 0.017. RELAYED RESULTS TO MD NO NEW ORDERS. RELAYED RESULTS TO PT.
[2018-10-09 04:47] VITALS: BP 114/65
[2018-10-09] MEDS: ONDANSETRON 4 MG/2 ML VIAL IV PRN ×2 (05:31→21:18)
[2018-10-09] MEDS: METRONIDAZOLE 500 MG/NS 100ML 500 MG in PREMIXED 1 EACH IV SCH ×3 (06:02→21:35)
[2018-10-09] MEDS: PANTOPRAZOLE SODIUM 40 MG TABLET.DR PO SCH (06:03)
[2018-10-09] MEDS: MORPHINE SULFATE 2 MG/1 ML DISP.SYRIN IV PRN ×2 (06:03→21:19)
[2018-10-09] MEDS: INSULIN REGULAR, HUMAN 300 UNIT/3 ML VIAL SQ PRN ×2 (06:30→17:14)
--- NOTE | 2018-10-09 07:00 | NUR ---
PATIENT SLEPT INTERMITTENTLY THROUGHOUT NIGHT. COMPLAINTS OF PAIN WERE ADDRESSED WITH PRESCRIBED MEDICATION. COMPLAINT OF ANXIETY WAS ADDRESSED WITH PRESCRIBED MEDICATION. PRIOR TO RECEIVING PRESCRIBED IV FLAGYL, PATIENT WAS OFFERED IV ZOFRAN TO PREVENT N/V AND PATIENT ACCEPT. ADDITIONAL COMPLAINTS OF PAIN WERE ADDRESSED WITH PAIN MEDICATION, WITH PATIENT STATING THAT PAIN WAS NOT RELIEVED AND REMAINED AT AN 8/10. ALL SAFETY, FALL, AND SEIZURE PRECAUTIONS REMAIN IN PLACE. PERSONAL ITEMS AND CALL LIGHT ARE WITHIN REACH AT ALL TIMES. WILL PROVIDE REPORT TO ONCOMING SHIFT.
[2018-10-09 07:18] LABS: BASOPHILS % (AUTO) 0.4 % (0.0-2.0); EOSINOPHILS % (AUTO) 0.5 % (0.0-7.0); HEMATOCRIT 33.9 % (31.2-41.9); HEMOGLOBIN 11.6 g/dL (10.9-14.3); LYMPHOCYTES # (AUTO) 1.3 K/uL (20.0-40.0); LYMPHOCYTES % (AUTO) 17.1 % (20.5-51.5); MEAN CORPUSCULAR HEMOGLOBIN 31.9 uug (24.7-32.8); MEAN CORPUSCULAR HGB CONC 34 g/dL (32.3-35.6); MEAN CORPUSCULAR VOLUME 93.8 fL (75.5-95.3); MONOCYTES # (AUTO) 0.3 K/uL (2.0-10.0); MONOCYTES % (AUTO) 4.3 % (0.0-11.0); NEUTROPHILS # (AUTO) 5.7 K/uL (1.8-8.9); NEUTROPHILS % (AUTO) 77.7 % (38.5-71.5); RED BLOOD CELL COUNT(AUTO) 3.62 MIL/uL (3.63-4.92); WHITE BLOOD COUNT (AUTO) 7.3 K/uL (3.8-11.8)
[2018-10-09 07:21] LABS: PLATELET COUNT (AUTO) 149 K/uL (179-408)
[2018-10-09 07:24] LABS: BILIRUBIN,TOTAL 0.2 mg/dL (0.2-1.0); CREATININE 0.7 mg/dL (0.6-1.3); MAGNESIUM 1.8 mg/dL (1.8-2.4); PHOSPHOROUS 2.6 mg/dL (2.5-4.9); POTASSIUM 4.4 mmol/L (3.5-5.1); TOTAL PROTEIN, SERUM 6.8 g/dL (6.4-8.2)
[2018-10-09] MEDS: DIVALPROEX 500 MG TABLET.DR PO SCH ×2 (08:06→16:05)
[2018-10-09] MEDS: GABAPENTIN 300 MG CAPSULE PO SCH ×3 (08:06→16:05)
[2018-10-09] MEDS: OXCARBAZEPINE 300 MG TABLET PO SCH (08:06)
[2018-10-09] MEDS: FERROUS SULFATE 325 MG TABEC PO SCH (08:06)
[2018-10-09] MEDS: TOPIRAMATE 25 MG TABLET PO SCH (08:06)
[2018-10-09] MEDS: POTASSIUM CHLORIDE 20 MEQ in IV D5/ 0.9% NACL 1,000 ML IV PRN (08:29)
[2018-10-09 12:32] VITALS: BP 96/48
[2018-10-09] MEDS: ALPRAZOLAM 0.5 MG TABLET PO PRN (14:43)
[2018-10-09 15:32] VITALS: BP 132/84
[2018-10-09] MEDS: LEVOFLOXACIN 500 MG/D5W 500 MG in PREMIXED 1 EACH IV SCH (17:40)
[2018-10-09] MEDS: DOCUSATE SODIUM 100 MG CAPSULE PO SCH ×2 (20:47→21:00)
[2018-10-09 21:17] VITALS: BP 106/69
[2018-10-10] MEDS: BLOOD SUGAR DIAGNOSTIC 1 EACH STRIP VI SCH ×3 (00:01→11:21)
[2018-10-10] MEDS: POTASSIUM CHLORIDE 20 MEQ in IV D5/ 0.9% NACL 1,000 ML IV PRN (00:02)
[2018-10-10] MEDS: MORPHINE SULFATE 2 MG/1 ML DISP.SYRIN IV PRN (01:52)
[2018-10-10 04:35] VITALS: BP 105/61
[2018-10-10] MEDS: ONDANSETRON 4 MG/2 ML VIAL IV PRN (05:29)
[2018-10-10] MEDS: METRONIDAZOLE 500 MG/NS 100ML 500 MG in PREMIXED 1 EACH IV SCH (05:56)
[2018-10-10] MEDS: PANTOPRAZOLE SODIUM 40 MG TABLET.DR PO SCH (06:31)
[2018-10-10] MEDS: DIVALPROEX 500 MG TABLET.DR PO SCH (08:02)
[2018-10-10] MEDS: GABAPENTIN 300 MG CAPSULE PO SCH ×2 (08:02→12:17)
[2018-10-10] MEDS: FERROUS SULFATE 325 MG TABEC PO SCH (08:02)
[2018-10-10] MEDS: TOPIRAMATE 25 MG TABLET PO SCH (08:02)
[2018-10-10] MEDS: OXCARBAZEPINE 300 MG TABLET PO SCH (08:03)
[2018-10-10] MEDS: INSULIN REGULAR, HUMAN 300 UNIT/3 ML VIAL SQ PRN (11:32)
[2018-10-10 11:36] VITALS: BP 127/79
[2018-10-10] MEDS ORDERED: METR500T PO (11:47)
[2018-10-10] MEDS ORDERED: LEVO500T2 PO (11:47)
--- NOTE | 2018-10-10 12:26 | NUR ---
d/c orders received noted and carried out,d/c instruction and education given to the pt,d/c lo per md orders,pt left the facility via private car in stable condition
== END 2018-10-10 12:27 | disposition home or self-care (01) | DRG 749 ==
LOC: ER 17:31 → TELE3 19:50 → MEDSURG3 10-06 13:12
PROVIDERS: ADMIT Internal Medicine; ATTEND Internal Medicine
PROC: 0JBR0ZZ Excision of Left Foot Subcutaneous Tissue and Fascia, Open Approach (ICD-10-PCS; principal; 2018-10-05)
PROC: 05HY33Z Insertion of Infusion Device into Upper Vein, Percutaneous Approach (ICD-10-PCS; 2018-10-07)
DX: B37.49 Other urogenital candidiasis (principal); A04.9 Bacterial intestinal infection, unspecified; G40.909 Epilepsy, unspecified, not intractable, without status epilepticus; N31.9 Neuromuscular dysfunction of bladder, unspecified; Z79.4 Long term (current) use of insulin; Z79.899 Other long term (current) drug therapy; Z88.2 Allergy status to sulfonamides; Z91.030 Bee allergy status; E78.5 Hyperlipidemia, unspecified; E10.621 Type 1 diabetes mellitus with foot ulcer; L97.522 Non-pressure chronic ulcer of other part of left foot with fat layer exposed; E10.42 Type 1 diabetes mellitus with diabetic polyneuropathy; E10.43 Type 1 diabetes mellitus with diabetic autonomic (poly)neuropathy; K31.84 Gastroparesis; Z86.73 Personal history of transient ischemic attack (TIA), and cerebral infarction without residual deficits; R23.4 Changes in skin texture; R07.9 Chest pain, unspecified
CPT/HCPCS: 36415; 36569; 70030-TC; 71045; 83690; 83735; 84100; 84703; 85025; 93005; A4663; C9113; G0378; J1450; J1815; J1956; J2270; J2405; J3480; J3490; J7030; J7040; J7042; J7050; Q9967

== ENCOUNTER 2019-01-04 20:34 | Inpatient (IN) | payer MEDICARE, MEDICAID ==
[~2019-01-04] VITALS: Ht 160 cm; Wt 63.0 kg
[~2019-01-04 20:34] MED LIST changes: -BUTA1CAP17 PO; +GABA600T12 PO; +LEVO500T2 PO; +METO-356 PO; +METR500T PO
[2019-01-04] MEDS ORDERED: GABAPENTIN 600 MG (22:01)
[2019-01-04] MEDS ORDERED: HYDROMORPHONE 1 MG/1 ML DISP.SYRIN IV ONE (22:45)
[2019-01-04] MEDS ORDERED: ONDANSETRON 4 MG/2 ML VIAL IV ONE (22:45)
[2019-01-04] MEDS ORDERED: IV NORMAL SALINE 1000 ML BAG IV ONE (22:45)
--- NOTE | 2019-01-04 23:00 | NUR ---
Pt hard stick. Lab at bedside for blood draw. Unable to obtain at this time after multiple attempts. Notified
[2019-01-05] MEDS ORDERED: HYDROMORPHONE 1 MG/1 ML DISP.SYRIN ONE (00:02)
[2019-01-05] MEDS ORDERED: ONDANSETRON 4 MG/2 ML VIAL ONE ×2 (00:02→02:03)
[2019-01-05 00:04] LABS: MEAN CORPUSCULAR HGB CONC 35 g/dL (32.3-35.6)
--- NOTE | 2019-01-05 00:04 | NUR ---
Pt states had tubal ligation in 2017 & wants to sign waiver for CT scan.
[2019-01-05 00:25] LABS: CARBON DIOXIDE 27 mmol/L (21-32); CHLORIDE 103 mmol/L (98-107); CREATININE 0.9 mg/dL (0.6-1.3); GLUCOSE 154 mg/dL (74-106); POTASSIUM 4.4 mmol/L (3.5-5.1); UREA NITROGEN, BLOOD 10 mg/dL (7-18)
[2019-01-05 00:26] LABS: BASOPHILS % (AUTO) 0.6 % (0.0-2.0); EOSINOPHILS # (AUTO) 0.1 K/uL (0.0-0.7); HEMATOCRIT 34.3 % (31.2-41.9); LYMPHOCYTES # (AUTO) 2.2 K/uL (20.0-40.0); LYMPHOCYTES % (AUTO) 33.6 % (20.5-51.5); MEAN CORPUSCULAR HEMOGLOBIN 32.4 uug (24.7-32.8); MEAN CORPUSCULAR VOLUME 92.4 fL (75.5-95.3); MONOCYTES # (AUTO) 0.3 K/uL (2.0-10.0); MONOCYTES % (AUTO) 3.9 % (0.0-11.0); NEUTROPHILS % (AUTO) 60.9 % (38.5-71.5); PLATELET COUNT (AUTO) 302 K/uL (179-408); RED BLOOD CELL COUNT(AUTO) 3.71 MIL/uL (3.63-4.92); WHITE BLOOD COUNT (AUTO) 6.5 K/uL (3.8-11.8)
[2019-01-05 00:29] LABS: ALANINE AMINOTRANSFERASE 10 U/L (14-59); ALKALINE PHOSPHATASE 71 U/L (50-136); ASPARTATE AMINOTRANSFERASE 5 U/L (15-37); BILIRUBIN,DIRECT 0.1 mg/dL (0.0-0.2); BILIRUBIN,TOTAL 0.3 mg/dL (0.2-1.0); LIPASE 161 U/L (73-393); TOTAL PROTEIN, SERUM 7.5 g/dL (6.4-8.2)
--- NOTE | 2019-01-05 00:48 | NUR ---
Pt went down to radiology dept for CT scan.
[2019-01-05] MEDS ORDERED: ONDANSETRON 4 MG/2 ML VIAL IV ONE (02:00)
[2019-01-05] MEDS ORDERED: HYDROMORPHONE 1 MG/1 ML DISP.SYRIN IV ONE (02:00)
[2019-01-05] MEDS ORDERED: HYDROMORPHONE 2 MG/1 ML DISP.SYRIN ONE (02:03)
[2019-01-05] MEDS ORDERED: CEFTRIAXONE 1 G VIAL ONE (02:27)
--- NOTE | 2019-01-05 04:00 | NUR ---
Received pt in TELE unit via no under the care of MD MILDRED. Dx: Gastroenteritis r/u C. dificile. Pt awake, alert and oriented x4. Pt able to ambulate with minimal assistance. Tele placed and noted to be SR with HR 98. Pt on 2L via NC with O2 saturating 98%. PIV on right wrist 22g patent and intact. No acute distress noted. Pt denies pain, discomfort or n/v at this time. VSS, afebrile. Full assessment completed, skin check done. Seizure precautions and safety measures initiated. Call light within reach. Will continue to monitor.
--- NOTE | 2019-01-05 04:30 | NUR ---
Call made to MD MILDRED for admitting orders. Orders received. Will continue with plan of care.
[2019-01-05 05:59] VITALS: BP 115/83
[2019-01-05] MEDS ORDERED: DEXTROSE 50% 50 ML DISP.SYRIN IV PRN ×2 (06:00→17:15)
[2019-01-05] MEDS ORDERED: BLOOD SUGAR DIAGNOSTIC 1 EACH STRIP VI SCH (06:00)
[2019-01-05] MEDS ORDERED: ONDANSETRON HCL 4 MG TABLET PO PRN (06:00)
[2019-01-05] MEDS ORDERED: INSULIN REGULAR, HUMAN 300 UNIT/3 ML VIAL SQ PRN (06:00)
[2019-01-05] MEDS ORDERED: IBUPROFEN 400 MG TABLET PO PRN (06:00)
[2019-01-05] MEDS: IV NS 1000 ML 1,000 ML IV PRN ×3 (06:02→21:09)
--- NOTE | 2019-01-05 06:07 | NUR ---
See downtime paperwork. Pt. admitted to Telemetry, under care of Dr. Mendosa. Belongs List completed.
[2019-01-05] MEDS: BLOOD SUGAR DIAGNOSTIC 1 EACH STRIP VI SCH ×4 (06:17→21:04)
[2019-01-05] MEDS ORDERED: METFORMIN HCL 500 MG TABLET PO SCH ×2 (08:00)
--- NOTE | 2019-01-05 08:00 | NUR ---
Received pt. resting in bed aox4. IV in R wrist 22 gauge intact patent running NS 125 cc/hr. Pt. on NPO diet. Pt. on tele HR 85 sinus rhythm. Pt. on 2 L NC for SOB as needed. Instructed pt. I need to collect her stool to send to the lab. Pt. agreed. Safety measures in place. Will continue to monitor pt.
[2019-01-05] MEDS ORDERED: OXCARBAZEPINE 300 MG TABLET PO ONE (09:00)
[2019-01-05] MEDS ORDERED: DIVALPROEX 500 MG TABLET.DR PO ONE (09:00)
[2019-01-05] MEDS ORDERED: DIVALPROEX 500 MG TABLET.DR PO SCH (09:00)
[2019-01-05] MEDS ORDERED: OXCARBAZEPINE 300 MG TABLET PO SCH ×2 (09:00→21:00)
--- NOTE | 2019-01-05 09:08 | NUR ---
Talked to pharmacy about medication depakote and latuda. Pt. states she does not want to bring latuda to the hospital and states she does not know if her depakote is extended release or delayed release. Pt. provided me with number to [facility] in [place] [phone]. Pharmacist states she will call pharmacy when it opens.
[2019-01-05] MEDS: FERROUS SULFATE 325 MG TABEC PO SCH (09:17)
--- NOTE | 2019-01-05 11:16 | NUR ---
Pt. has past medical history of seizures. Pt. states she has not had a seizure in 2 years. Instructed and educated pt. on importance of padding side rails of bed for safety reasons if pt. were to have a seizure. Pt. stated she did not want to have the side rails wrapped or padded. Charge nurse informed. Will continue to monitor pt.
[2019-01-05 11:21] VITALS: BP 116/83
[2019-01-05 17:34] LABS: *BILIRUBIN,URIN NEGATIVE (NEGATIVE); *CLARITY,URINE CLEAR (CLEAR); *COLOR,URINE YELLOW (YELLOW); *KETONES,URINE NEGATIVE (NEGATIVE); *UROBILINOGEN,URINE 0.2 E.U./dl (NORMAL); LEUKOCYTE ESTERASE ,URINE TRACE (NEGATIVE); NITRITE, URINE NEGATIVE (NEGATIVE); PH,URINE 5.5 (5.0-8.0); UGLUCOSE NEGATIVE (NEGATIVE)
[2019-01-05 17:36] LABS: *BLOOD, URINE TRACE (NEGATIVE)
[2019-01-05 17:49] LABS: RBC,URINE 0-3 /HPF (0-3)
[2019-01-05 17:50] LABS: SQUAMOUS EPITHELIAL CELL,UR FEW /HPF (NONE SEEN)
--- NOTE | 2019-01-05 18:43 | NUR ---
pt. resting in bed aox4. IV in R wrist 22 gauge intact patent running NS 125 cc/hr. Pt. on NPO diet. Pt. on tele. Pt. on 2 L NC for SOB as needed. Urine collected and sent to lab. Stool sample not collected yet pt. has not had BM during shift. Safety measures in place. 2 side rails up. Call light within reach. Pt. continues to refuse having side rails padded. Will continue to monitor pt. and endorse to PM nurse
--- NOTE | 2019-01-05 19:56 | NUR ---
Patient alert and orient x 4. IV in right wrist flowing 125 mL/HR. Stool staple needs to be retrieved for C-Diff testing. Diet advanced to [facility] low fat per MD order. Assisted to the bathroom x 1. Will continue to monitor.
[2019-01-05 20:24] VITALS: BP 123/81
[2019-01-05] MEDS ORDERED: LURASIDONE 60 MG PO SCH (21:00)
[2019-01-05] MEDS: OXCARBAZEPINE 300 MG TABLET PO SCH (21:01)
[2019-01-05] MEDS: ATORVASTATIN 40 MG TABLET PO SCH (21:01)
[2019-01-05] MEDS: INSULIN REGULAR, HUMAN 300 UNIT/3 ML VIAL SQ PRN (21:06)
[2019-01-06 05:51] VITALS: BP 115/74
[2019-01-06] MEDS: IV NS 1000 ML 1,000 ML IV PRN ×2 (06:04→17:15)
[2019-01-06] MEDS: BLOOD SUGAR DIAGNOSTIC 1 EACH STRIP VI SCH ×4 (06:30→21:12)
--- NOTE | 2019-01-06 06:44 | NUR ---
Patient slept well through out the night. No SOB noted, no complaints of pain at this time. IV site on R wrist intact and patent w/ IVF infusing. Safety measures observed. Will endorse accordingly
--- NOTE | 2019-01-06 08:19 | NUR ---
pt. resting in bed aox4. IV in R wrist 22 gauge intact patent running NS 125 cc/hr. Pt. advanced to [facility] diet. Educated pt. that I need to take a stool sample. Stool sample not collected yet pt. has not had BM during last shift. Asked pt. if she felt constipated/ wanted to take any PRN medication to relieve constipation. Pt. denies constipation and does not want to take anything. Safety measures in place. 2 side rails up. Call light within reach. Pt. continues to refuse having side rails padded although educated on safety. Will continue to monitor pt.
[2019-01-06] MEDS: DIVALPROEX 500 MG TABLET.DR PO SCH (08:28)
[2019-01-06] MEDS: FERROUS SULFATE 325 MG TABEC PO SCH (08:28)
[2019-01-06 09:43] LABS: ALANINE AMINOTRANSFERASE < 6 U/L (14-59); ALKALINE PHOSPHATASE 51 U/L (50-136); ASPARTATE AMINOTRANSFERASE 20 U/L (15-37); BILIRUBIN,TOTAL 0.3 mg/dL (0.2-1.0); CARBON DIOXIDE 26 mmol/L (21-32); CHLORIDE 109 mmol/L (98-107); CREATININE 0.7 mg/dL (0.6-1.3); GLUCOSE 185 mg/dL (74-106); MAGNESIUM 1.4 mg/dL (1.8-2.4); PHOSPHOROUS 4.1 mg/dL (2.5-4.9); POTASSIUM 4.9 mmol/L (3.5-5.1); UREA NITROGEN, BLOOD 5 mg/dL (7-18)
[2019-01-06] MEDS: MAGNESIUM SULFATE/D5W 100 ML IV SCH ×2 (11:13→13:35)
--- NOTE | 2019-01-06 11:37 | NUR ---
pt. stated she is allergic to magnesium sodium. Asked pt. what happens when she received magnesium pt. stated she had diarrhea. Called pharmacy and spoke to the pharmacist working on pt.'s allergy to magnesium sulfate. Pharmacy stated a S/E of magnesium sulfate is diarrhea if given too much. Due to pt.'s low Mg level and after educating pt.that is side effect if given too much pt. agreed to magnesium sulfate order. Will continue to monitor pt.
[2019-01-06 11:38] VITALS: BP 104/74
[2019-01-06] MEDS: INSULIN REGULAR, HUMAN 300 UNIT/3 ML VIAL SQ PRN ×3 (12:15→21:15)
[2019-01-06 16:00] VITALS: BP 118/79
[2019-01-06] MEDS ORDERED: MAGNESIUM CITRATE 296 ML BOTTLE PO ONE (18:00)
--- NOTE | 2019-01-06 18:07 | NUR ---
Pt. complaining of pain at IV site. Assessed IV and IV infiltrated. Removed IV and elevated arm. Will report to charge nurse and ask for a mid line due to pt. being a hard stick. Pt. agreed to getting mid line. Will continue to monitor pt.
--- NOTE | 2019-01-06 18:33 | NUR ---
Arm is elevated on 2 pillows. Warm pack wrapped and on arm. Spoke to Dr. Fisher about midline. said to discontinue IV fluids as pt. will be d/cd tomorrow. Will continue to monitor pt. and elevate.
--- NOTE | 2019-01-06 18:54 | NUR ---
Pt. resting in bed alert oriented x4. Pt. states her right hand feels better and rates pain from 9/10 to 6/10. R arm is elevated on 2 pillows w warm pack wrapped. Pt. did not want to take one time order of magnesium citrate ordered for constipation. Gave pt. prune juice. Will continue to monitor and report to PM nurse.
--- NOTE | 2019-01-06 19:37 | NUR ---
Switched warm pack to cold pack due to charge nurse. Arm is elevated. Will endorse to PM nurse
--- NOTE | 2019-01-06 20:00 | NUR ---
Dr. Fisher made aware of patients allergy to citrus. Mg Citrate order discontinued. new orders for milk of Magnesia ordered.
[2019-01-06 20:13] VITALS: BP 115/73
[2019-01-06] MEDS: ATORVASTATIN 40 MG TABLET PO SCH (21:07)
[2019-01-06] MEDS: OXCARBAZEPINE 300 MG TABLET PO SCH (21:07)
[2019-01-06] MEDS ORDERED: MAGNESIUM HYDROXIDE 30 ML LIQUID UDC PO PRN (23:30)
[2019-01-07 05:15] VITALS: BP 108/65
[2019-01-07] MEDS: BLOOD SUGAR DIAGNOSTIC 1 EACH STRIP VI SCH ×2 (07:05→12:39)
[2019-01-07] MEDS ORDERED: MAGNESIUM HYDROXIDE 30 ML LIQUID UDC PO ONE (07:30)
--- NOTE | 2019-01-07 07:38 | NUR ---
unable to collect c. diff stool sample as patient is unable to provide. will endorse to morning nurse.
[2019-01-07] MEDS: FERROUS SULFATE 325 MG TABEC PO SCH (08:46)
[2019-01-07] MEDS: DIVALPROEX 500 MG TABLET.DR PO SCH (08:46)
[2019-01-07] MEDS ORDERED: MAGNESIUM HYDROXIDE 30 ML LIQUID UDC PO PRN (09:30)
[2019-01-07 11:44] VITALS: BP 140/80
[2019-01-07] MEDS: INSULIN REGULAR, HUMAN 300 UNIT/3 ML VIAL SQ PRN (12:43)
--- NOTE | 2019-01-07 14:08 | NUR ---
Patient discharged home with valuables and belongings; patient requested labs and ct scan results and educated that they were included in discharge paper work. Patient picked up by Ex in private car. Patient wounds taken pictures ; patient vital signs stable. Patient educated on gastroenteritis. Addendum: 01/07/19 at 1419 by PETER KEARNEY RN Patient educated to follow up with primary care physician for further follow up.
== END 2019-01-07 14:00 | disposition home or self-care (01) | DRG 74 ==
LOC: ER 20:34 → TELE3 01-05 04:43 → MEDSURG3 01-05 13:57
PROVIDERS: ADMIT Family Medicine; ATTEND Internal Medicine
DX: E10.43 Type 1 diabetes mellitus with diabetic autonomic (poly)neuropathy (principal); E87.2 Acidosis; K31.84 Gastroparesis; Z76.5 Malingerer [conscious simulation]; Z86.31 Personal history of diabetic foot ulcer; Z87.440 Personal history of urinary (tract) infections; E03.9 Hypothyroidism, unspecified; E10.42 Type 1 diabetes mellitus with diabetic polyneuropathy; L90.5 Scar conditions and fibrosis of skin; F31.9 Bipolar disorder, unspecified; E78.5 Hyperlipidemia, unspecified; G40.909 Epilepsy, unspecified, not intractable, without status epilepticus; I10 Essential (primary) hypertension; Z79.4 Long term (current) use of insulin; Z79.899 Other long term (current) drug therapy; Z83.3 Family history of diabetes mellitus; Z82.49 Family history of ischemic heart disease and other diseases of the circulatory system
CPT/HCPCS: 36415; 70030-TC; 71045; 83605; 83690; 83735; 84100; 85025; 85730; 87040; 87086; 93005; A4663; G0378; J0696; J1170; J1815; J2405; J3475; J7030; Q0162

== ENCOUNTER 2021-11-26 14:17 | Emergency (ER) | payer MEDICARE, MEDICAID ==
[~2021-11-26] VITALS: Ht 160 cm; Wt 74.8 kg
[~2021-11-26 14:17] MED LIST changes: -LEVO500T2 PO; -METR500T PO
[2021-11-26] MEDS ORDERED: IV NORMAL SALINE 500 ML BAG IV ONE (14:30)
[2021-11-26] MEDS ORDERED: FAMO40TA71 PO (14:54)
[2021-11-26] MEDS ORDERED: CETI-90 PO (14:54)
[2021-11-26] MEDS ORDERED: ONDA8TAB13 PO (14:54)
[2021-11-26] MEDS ORDERED: GLIP10TA21 PO (14:54)
[2021-11-26] MEDS ORDERED: METO-356 PO (14:54)
[2021-11-26] MEDS ORDERED: VENL75TA4 PO (14:54)
[2021-11-26] MEDS ORDERED: OMEP20TA20 PO (14:54)
[2021-11-26] MEDS ORDERED: CALC500T52 PO (14:54)
[2021-11-26] MEDS ORDERED: AMYL1CAP56 PO (14:54)
[2021-11-26] MEDS ORDERED: ATOR20TA PO (14:54)
[2021-11-26] MEDS ORDERED: NOVOLOG FLEX (14:58)
[2021-11-26 15:12] LABS: HEMATOCRIT 34.3 % (31.2-41.9); MEAN CORPUSCULAR HEMOGLOBIN 30.5 uug (24.7-32.8); MEAN CORPUSCULAR VOLUME 88.6 fL (75.5-95.3); PLATELET COUNT (AUTO) 352 K/uL (179-408)
--- NOTE | 2021-11-26 15:16 | NUR ---
1430pm: Customer Advisor Specialist assumes care, 1st contact with patient, AOx4, respiration:easy, EKG being done by pharmacist in charge Andrei. 1455pm" "I'm a hard stick. They usually start my line in the foot or leg." per patient. notified.
[2021-11-26 15:22] LABS: CREATININE 1.2 mg/dL (0.6-1.3); POTASSIUM 4.4 mmol/L (3.5-5.1)
[2021-11-26] MEDS ORDERED: MECLIZINE HCL 25 MG TABLET ONE (15:26)
[2021-11-26 15:27] LABS: BILIRUBIN,TOTAL 0.2 mg/dL (0.2-1.0); TOTAL PROTEIN, SERUM 7.8 g/dL (6.4-8.2)
[2021-11-26] MEDS ORDERED: MECLIZINE HCL 25 MG TABLET PO ONE (15:30)
[2021-11-26] MEDS ORDERED: KETOROLAC TROMETHAMINE 15 MG INJ ONE (15:44)
[2021-11-26] MEDS ORDERED: KETOROLAC TROMETHAMINE 15 MG INJ IVP ONE (15:45)
--- NOTE | 2021-11-26 16:18 | NUR ---
Patient is resting comfortably on gurney with eyes closed, NAD.
[2021-11-26] MEDS ORDERED: NEED1DIS MC (16:19)
--- NOTE | 2021-11-26 16:23 | NUR ---
Patient said that she feels much better but unable to give urine specimen. MD notified.
--- NOTE | 2021-11-26 16:36 | NUR ---
IV removed. Catheter intact and site benign. Pressure and 4x4 gauze applied to site. No bleeding noted. Patient discharged to home in stable condition with brisk steady gait. Written and verbal after care instructions given. Patient verbalized understanding and compliance of instructions. Stressed follow up with primary doctor or return to ER for worsening s/s.
== END 2021-11-26 16:37 | disposition home or self-care (01) ==
LOC: ER 14:17
DX: E11.65 Type 2 diabetes mellitus with hyperglycemia (principal); Z88.2 Allergy status to sulfonamides; Z91.030 Bee allergy status; F31.9 Bipolar disorder, unspecified; Z86.16 Personal history of COVID-19; Z82.49 Family history of ischemic heart disease and other diseases of the circulatory system; R00.0 Tachycardia, unspecified
CPT/HCPCS: 99284; 96374; 80053; 82962; 85025; 84484; 36415; 93005; J1885; J7040; A4663; J8597

== ENCOUNTER 2022-04-16 19:40 | Emergency (ER) | payer OTHER ==
[~2022-04-16] VITALS: Ht 160 cm; Wt 74.4 kg
[~2022-04-16 19:40] MED LIST changes: -ALPR0.5T8 PO; +AMYL1CAP56 PO; +ATOR20TA PO; +CALC500T52 PO; +CETI-90 PO; -DOCU100C36 PO; +FAMO40TA71 PO; -FERR325T28 PO; -GABA600T12 PO; +GLIP10TA21 PO; -INSU100C SQ; -INSU100V7 SQ; +NEED1DIS MC; +NOVOLOG FLEX; +OMEP20TA20 PO; +ONDA8TAB13 PO; -TOPI25TA49 PO; +VENL75TA4 PO
[2022-04-16] MEDS ORDERED: IV NS 1000 ML 1,000 ML IV ONE (20:00)
[2022-04-16 21:52] LABS: MEAN CORPUSCULAR HEMOGLOBIN 31.5 uug (24.7-32.8); MEAN CORPUSCULAR VOLUME 90.8 fL (75.5-95.3); PLATELET COUNT (AUTO) 390 K/uL (179-408)
--- NOTE | 2022-04-16 22:03 | NUR ---
Patient is able to ambulate to the restroom with steady gait
[2022-04-16 22:05] LABS: CARBON DIOXIDE 30 mmol/L (21-32); CHLORIDE 103 mmol/L (98-107); CREATININE 0.9 mg/dL (0.6-1.3); GLUCOSE 102 mg/dL (74-106); POTASSIUM 4.2 mmol/L (3.5-5.1); UREA NITROGEN, BLOOD 20 mg/dL (7-18)
[2022-04-16 22:14] LABS: ALANINE AMINOTRANSFERASE 13 U/L (14-59); ALKALINE PHOSPHATASE 106 U/L (50-136); ASPARTATE AMINOTRANSFERASE < 5 U/L (15-37); BILIRUBIN,DIRECT 0.1 mg/dL (0.0-0.2); BILIRUBIN,TOTAL 0.2 mg/dL (0.2-1.0); TOTAL PROTEIN, SERUM 8.4 g/dL (6.4-8.2)
[2022-04-16 23:28] LABS: *BILIRUBIN,URIN NEGATIVE (NEGATIVE); *BLOOD, URINE NEGATIVE (NEGATIVE); *COLOR,URINE YELLOW (YELLOW); *KETONES,URINE TRACE (NEGATIVE); *UROBILINOGEN,URINE 0.2 E.U./dl (NORMAL); LEUKOCYTE ESTERASE ,URINE NEGATIVE (NEGATIVE); NITRITE, URINE NEGATIVE (NEGATIVE); PH,URINE 5.5 (5.0-8.0); UGLUCOSE 3+ (NEGATIVE)
--- NOTE | 2022-04-16 23:37 | NUR ---
Patient discharged to home in stable condition. Written and verbal after care instructions given. Patient verbalizes understanding of instructions. Stressed follow up or return to ER for worsening s/s. Patient is a/ox4, NAD noted. patient is able to walk with steady gait. Patient is accompanied by her SO
[2022-04-16 23:38] VITALS: BP 121/72
[2022-04-16 23:55] LABS: *CLARITY,URINE SLIGHTLY HAZY (CLEAR)
[2022-04-16 23:57] LABS: BACTERIA,URINE MANY /HPF (NONE SEEN)
[2022-04-16 23:59] LABS: RBC,URINE 0-3 /HPF (0-3); SQUAMOUS EPITHELIAL CELL,UR MODERATE /HPF (NONE SEEN)
[2022-04-17 00:02] LABS: CALCIUM OXALATE CRYSTALS,UR FEW /HPF (NONE SEEN)
== END 2022-04-16 23:39 | disposition home or self-care (01) ==
LOC: ER 19:58
DX: E11.65 Type 2 diabetes mellitus with hyperglycemia (principal); Z79.84 Long term (current) use of oral hypoglycemic drugs; R00.0 Tachycardia, unspecified; Z87.440 Personal history of urinary (tract) infections; Z86.73 Personal history of transient ischemic attack (TIA), and cerebral infarction without residual deficits; I10 Essential (primary) hypertension; F31.9 Bipolar disorder, unspecified; Z88.6 Allergy status to analgesic agent; Z88.2 Allergy status to sulfonamides; Z88.8 Allergy status to other drugs, medicaments and biological substances; Z91.018 Allergy to other foods
CPT/HCPCS: 99285; 96360; 71045; 80076; 80048; 81001; 85025; 87040 ×2; 84484; 36415; 93005; J7040; A4663

== ENCOUNTER 2022-05-14 17:42 | Emergency (ER) | payer MEDICARE, OTHER ==
[~2022-05-14] VITALS: Ht 160 cm; Wt 69.9 kg
[2022-05-14] MEDS ORDERED: ASPIRIN 81 MG TAB.CHEW PO ONE (18:30)
[2022-05-14] MEDS ORDERED: ONDANSETRON 4 MG/2 ML VIAL IV ONE (18:30)
[2022-05-14] MEDS ORDERED: HYDROMORPHONE 1 MG/1 ML DISP.SYRIN IV ONE (18:30)
--- NOTE | 2022-05-14 18:30 | NUR ---
EKG machine was not working, after multiple attempts notify emergency registrar.
[2022-05-14] MEDS ORDERED: ONDANSETRON 4 MG/2 ML VIAL ONE ×2 (18:35→18:36)
[2022-05-14] MEDS ORDERED: ASPIRIN 81 MG TAB.CHEW ONE (18:35)
[2022-05-14] MEDS ORDERED: HYDROMORPHONE 1 MG/1 ML DISP.SYRIN ONE (18:36)
[2022-05-14 19:06] LABS: HEMATOCRIT 35.7 % (31.2-41.9); MEAN CORPUSCULAR HEMOGLOBIN 30.2 uug (24.7-32.8); MEAN CORPUSCULAR VOLUME 89.3 fL (75.5-95.3); PLATELET COUNT (AUTO) 388 K/uL (179-408)
[2022-05-14 19:10] LABS: CARBON DIOXIDE 26 mmol/L (21-32); CHLORIDE 100 mmol/L (98-107); CREATININE 0.8 mg/dL (0.6-1.3); GLUCOSE 115 mg/dL (74-106); UREA NITROGEN, BLOOD 11 mg/dL (7-18)
[2022-05-14 19:21] LABS: ALANINE AMINOTRANSFERASE 10 U/L (14-59); ALKALINE PHOSPHATASE 97 U/L (50-136); ASPARTATE AMINOTRANSFERASE 11 U/L (15-37); BILIRUBIN,DIRECT 0.1 mg/dL (0.0-0.2); BILIRUBIN,TOTAL 0.2 mg/dL (0.2-1.0); TOTAL PROTEIN, SERUM 8.1 g/dL (6.4-8.2)
[2022-05-14] MEDS ORDERED: MAGNESIUM SULFATE/D5W 100 ML IV SCH (19:30)
[2022-05-14] MEDS ORDERED: diphenhydrAMINE 50 MG/1 ML VIAL IV ONE (20:00)
[2022-05-14] MEDS ORDERED: diphenhydrAMINE 50 MG/1 ML VIAL ONE (20:02)
[2022-05-14] MEDS ORDERED: MAGNESIUM SULFATE/D5W 100 ML ONE (20:12)
[2022-05-14] MEDS ORDERED: TRAM50TA2 PO (20:14)
--- NOTE | 2022-05-14 21:43 | NUR ---
jones in a stable condition, walked out of ED.Patient received to ordered magnesium ivpb. IV site discontinued after infusing the magnesium, catheter was intact. Discharge instructions completed, patient verbalized understanding. Patient signed paper work, same given to her with her prescription. Patient in a stable condition, walked out of ED.
[2022-05-15 01:46] VITALS: BP 125/76
== END 2022-05-14 21:33 | disposition home or self-care (01) ==
LOC: ER 17:42
DX: R09.1 Pleurisy (principal); B97.89 Other viral agents as the cause of diseases classified elsewhere; Z20.822 Contact with and (suspected) exposure to COVID-19; E83.42 Hypomagnesemia; R94.31 Abnormal electrocardiogram [ECG] [EKG]; E11.9 Type 2 diabetes mellitus without complications; Z79.84 Long term (current) use of oral hypoglycemic drugs; Z79.899 Other long term (current) drug therapy; Z82.49 Family history of ischemic heart disease and other diseases of the circulatory system; Z88.6 Allergy status to analgesic agent; Z91.030 Bee allergy status; Z91.018 Allergy to other foods; Z86.73 Personal history of transient ischemic attack (TIA), and cerebral infarction without residual deficits; F31.9 Bipolar disorder, unspecified; I25.2 Old myocardial infarction; Z87.440 Personal history of urinary (tract) infections
CPT/HCPCS: 99285; 96365; 96375; 71045; 80076; 80048; 83735; 85025; 85379; 85730; 84484; 36415; 93005; J1200; J3475; J2405 ×2; J1170; A4663

== ENCOUNTER 2022-06-20 17:09 | Emergency (ER) | payer MEDICARE, OTHER ==
[~2022-06-20] VITALS: Ht 160 cm; Wt 68.9 kg
[~2022-06-20 17:09] MED LIST changes: +TRAM50TA2 PO
[2022-06-20 17:43] LABS: HEMATOCRIT 36.3 % (31.2-41.9); MEAN CORPUSCULAR HEMOGLOBIN 30.9 uug (24.7-32.8); MEAN CORPUSCULAR VOLUME 90.7 fL (75.5-95.3); PLATELET COUNT (AUTO) 415 K/uL (179-408)
[2022-06-20 17:47] LABS: *BILIRUBIN,URIN NEGATIVE (NEGATIVE); *BLOOD, URINE NEGATIVE (NEGATIVE); *CLARITY,URINE CLEAR (CLEAR); *COLOR,URINE YELLOW (YELLOW); *KETONES,URINE 2+ (NEGATIVE); *UROBILINOGEN,URINE 0.2 E.U./dl (NORMAL); LEUKOCYTE ESTERASE ,URINE NEGATIVE (NEGATIVE); NITRITE, URINE NEGATIVE (NEGATIVE); UGLUCOSE 2+ (NEGATIVE)
[2022-06-20 17:48] LABS: *URINE HCG, QUAL NEG (NEGATIVE)
[2022-06-20 17:52] LABS: CREATININE 1.1 mg/dL (0.6-1.3); POTASSIUM 4.5 mmol/L (3.5-5.1)
[2022-06-20] MEDS ORDERED: IBUPROFEN 600 MG TABLET PO ONE (18:00)
[2022-06-20] MEDS ORDERED: IBUPROFEN 600 MG TABLET ONE (18:03)
[2022-06-20] MEDS ORDERED: CEFP200T14 PO (18:36)
--- NOTE | 2022-06-20 18:58 | NUR ---
Patient discharged to home in stable condition. Written and verbal after care instructions given. Patient verbalizes understanding of instructions. Stressed follow up or return to ER for worsening s/s.
[2022-06-20 19:05] VITALS: BP 115/71
== END 2022-06-20 18:58 | disposition home or self-care (01) ==
LOC: ER 17:09
DX: N39.0 Urinary tract infection, site not specified (principal); Z87.440 Personal history of urinary (tract) infections; F31.9 Bipolar disorder, unspecified; F41.9 Anxiety disorder, unspecified; E11.9 Type 2 diabetes mellitus without complications; Z86.73 Personal history of transient ischemic attack (TIA), and cerebral infarction without residual deficits; Z82.49 Family history of ischemic heart disease and other diseases of the circulatory system; Z88.2 Allergy status to sulfonamides; Z88.1 Allergy status to other antibiotic agents; Z91.030 Bee allergy status; Z79.899 Other long term (current) drug therapy
CPT/HCPCS: 36415; 84703; 85025; A4663

== ENCOUNTER 2022-10-07 16:35 | Emergency (ER) | payer MEDICARE, OTHER ==
[~2022-10-07] VITALS: Ht 160 cm; Wt 65.8 kg
[~2022-10-07 16:35] MED LIST changes: +CEFP200T14 PO
[2022-10-07] MEDS ORDERED: diphenhydrAMINE 50 MG/1 ML VIAL IV ONE (16:45)
[2022-10-07] MEDS ORDERED: METOCLOPRAMIDE HCL 10 MG/2 ML VIAL IV ONE (16:45)
[2022-10-07] MEDS ORDERED: IV NORMAL SALINE 1000 ML BAG IV ONE (16:45)
[2022-10-07] MEDS ORDERED: DEXAMETHASONE SOD PHOSPHATE 4 MG INJ IV ONE (16:45)
[2022-10-07] MEDS ORDERED: DEXAMETHASONE SOD PHOSPHATE 10 MG INJ ONE (16:46)
[2022-10-07] MEDS ORDERED: METOCLOPRAMIDE HCL 10 MG/2 ML VIAL ONE (16:47)
[2022-10-07] MEDS ORDERED: diphenhydrAMINE 50 MG/1 ML VIAL ONE (16:47)
--- NOTE | 2022-10-07 16:54 | NUR ---
OMEGA YU AT BEDSIDE FOR MSE
[2022-10-07 17:03] LABS: HEMATOCRIT 37.5 % (31.2-41.9); MEAN CORPUSCULAR HEMOGLOBIN 29.6 uug (24.7-32.8); MEAN CORPUSCULAR VOLUME 89.7 fL (75.5-95.3); PLATELET COUNT (AUTO) 408 K/uL (179-408)
[2022-10-07] MEDS ORDERED: KETOROLAC TROMETHAMINE 15 MG INJ IVP ONE (17:30)
[2022-10-07 17:33] LABS: *BILIRUBIN,URIN NEGATIVE (NEGATIVE); *BLOOD, URINE NEGATIVE (NEGATIVE); *CLARITY,URINE SLIGHTLY CLOUDY (CLEAR); *COLOR,URINE YELLOW (YELLOW); *KETONES,URINE TRACE (NEGATIVE); *UROBILINOGEN,URINE 0.2 E.U./dl (NORMAL); LEUKOCYTE ESTERASE ,URINE 1+ (NEGATIVE); NITRITE, URINE NEGATIVE (NEGATIVE)
[2022-10-07 17:36] LABS: UGLUCOSE 2+ (NEGATIVE)
[2022-10-07 17:42] LABS: *URINE HCG, QUAL NEGATIVE (NEGATIVE)
[2022-10-07] MEDS ORDERED: KETOROLAC TROMETHAMINE 15 MG INJ ONE (17:46)
[2022-10-07] MEDS ORDERED: IBUP-1955 PO (18:10)
[2022-10-07] MEDS ORDERED: CEPH500T PO (18:10)
[2022-10-07] MEDS ORDERED: TRAMADOL HCL 50 MG TABLET PO ONE (18:15)
[2022-10-07] MEDS ORDERED: TRAMADOL HCL 50 MG TABLET ONE (18:19)
--- NOTE | 2022-10-07 18:25 | NUR ---
IV removed. Catheter intact and site benign. Pressure and 4x4 gauze applied to site. No bleeding noted.
[2022-10-07 18:27] VITALS: BP 115/75
--- NOTE | 2022-10-07 18:29 | NUR ---
PT IS BEING PICKED UP BY FAMILY MEMBER; WILL WAIT IN THE WAITING ROOM FOR RIDE
[2022-10-07 22:14] LABS: BACTERIA,URINE MODERATE /HPF (NONE SEEN); RBC,URINE 0-3 /HPF (0-3)
[2022-10-07 22:15] LABS: SQUAMOUS EPITHELIAL CELL,UR NONE SEEN /HPF (NONE SEEN)
== END 2022-10-07 18:29 | disposition home or self-care (01) ==
LOC: ER 16:35
DX: R51.9 Headache, unspecified (principal); N39.0 Urinary tract infection, site not specified; E11.65 Type 2 diabetes mellitus with hyperglycemia; I10 Essential (primary) hypertension; E78.5 Hyperlipidemia, unspecified; Z88.8 Allergy status to other drugs, medicaments and biological substances; Z88.2 Allergy status to sulfonamides; Z91.018 Allergy to other foods; Z91.030 Bee allergy status; Z79.899 Other long term (current) drug therapy
CPT/HCPCS: 99285; 96374; 96375; 70450; 96361; 80048; 81001; 82962; 84703; 85025; 36415; J1100; J1200; J1885; J2765; J7040; A4663

== ENCOUNTER 2022-10-26 14:52 | Emergency (ER) | payer MEDICARE, OTHER ==
[~2022-10-26] VITALS: Ht 160 cm; Wt 68.0 kg
[~2022-10-26 14:52] MED LIST changes: +CEPH500T PO; +IBUP-1955 PO
[2022-10-26] MEDS ORDERED: IV NORMAL SALINE 500 ML BAG IV ONE (15:15)
--- NOTE | 2022-10-26 15:16 | NUR ---
* Unable to start IV line and IV fluid infusion 2/2 "patient is a hard stick", MD notified. PICC/ Midline nurse was requested from RN electrical & instrumentation supervisor Mckinley.
--- NOTE | 2022-10-26 15:17 | NUR ---
Patient is a hard stick notified.
--- NOTE | 2022-10-26 16:01 | NUR ---
Patient wants her blood drawn with IV lineinsertion by midline/PICC nurse. Dr Porter notified.
[2022-10-26 16:35] LABS: MEAN CORPUSCULAR HEMOGLOBIN 30.3 uug (24.7-32.8); MEAN CORPUSCULAR VOLUME 91.8 fL (75.5-95.3); PLATELET COUNT (AUTO) 275 K/uL (179-408)
--- NOTE | 2022-10-26 16:45 | NUR ---
Patient consented to blood draw at her foot, MD notified.
[2022-10-26 16:47] LABS: CARBON DIOXIDE 22 mmol/L (21-32); CHLORIDE 100 mmol/L (98-107); CREATININE 0.9 mg/dL (0.6-1.3); POTASSIUM 4.7 mmol/L (3.5-5.1); UREA NITROGEN, BLOOD 16 mg/dL (7-18)
[2022-10-26 16:50] LABS: GLUCOSE 358 mg/dL (74-106)
[2022-10-26 16:52] LABS: ALANINE AMINOTRANSFERASE < 6 U/L (14-59); ALKALINE PHOSPHATASE 81 U/L (50-136); ASPARTATE AMINOTRANSFERASE < 5 U/L (15-37); BILIRUBIN,DIRECT < 0.1 mg/dL (0.0-0.2); BILIRUBIN,TOTAL 0.1 mg/dL (0.2-1.0); LIPASE 91 U/L (73-393)
[2022-10-26 17:08] LABS: *BILIRUBIN,URIN NEGATIVE (NEGATIVE); *BLOOD, URINE NEGATIVE (NEGATIVE); *CLARITY,URINE CLEAR (CLEAR); *COLOR,URINE YELLOW (YELLOW); *KETONES,URINE 1+ (NEGATIVE); *UROBILINOGEN,URINE 0.2 E.U./dl (NORMAL); LEUKOCYTE ESTERASE ,URINE TRACE (NEGATIVE); NITRITE, URINE NEGATIVE (NEGATIVE); PH,URINE 6.5 (5.0-8.0)
[2022-10-26 17:09] LABS: *URINE HCG, QUAL NEGATIVE (NEGATIVE); UGLUCOSE 2+ (NEGATIVE)
[2022-10-26] MEDS ORDERED: IV NORMAL SALINE 1000 ML BAG IV ONE (17:45)
[2022-10-26 18:51] LABS: RBC,URINE 0-3 /HPF (0-3)
--- NOTE | 2022-10-26 18:52 | NUR ---
Dr Porter attempted image guided midline catheter insertion, unsuccessful. RN supervisor agency appointments Mckinley was notified again that this patient still needs midline catheter for ER work-up.
--- NOTE | 2022-10-26 19:13 | NUR ---
Still for midline catheter insertion for CT scan purposes, endorsed to 7pm ER nurse Carolee accordingly. RN supervisor malted milk Hyd reminded again re: midline catheter insertion please
--- NOTE | 2022-10-26 19:15 | NUR ---
REPORT RECEIVED FROM JOE GIBSON.
--- NOTE | 2022-10-26 19:53 | NUR ---
Waiting for IV. PT needs IV for CT exam of the Abdomen and Pelvis.
--- NOTE | 2022-10-26 21:22 | NUR ---
Stilling waiting for IV. Called ER and PT does NOT have IV per Ollie.
[2022-10-26] MEDS ORDERED: HYDROMORPHONE 1 MG/1 ML DISP.SYRIN ONE ×2 (21:41→23:29)
[2022-10-26] MEDS ORDERED: ONDANSETRON 4 MG/2 ML VIAL ONE (21:41)
[2022-10-26] MEDS ORDERED: ONDANSETRON 4 MG/2 ML VIAL IV ONE (21:45)
[2022-10-26] MEDS ORDERED: HYDROMORPHONE 1 MG/1 ML DISP.SYRIN IV ONE ×2 (21:45→23:30)
[2022-10-26] MEDS ORDERED: IOHEXOL 300MG/ML 100 ML INFUS..BTL ONE (21:54)
[2022-10-26] MEDS ORDERED: SWABABLE VALVE TRANSFER SET EA MC ONE (21:54)
[2022-10-26] MEDS ORDERED: IV NORMAL SALINE 250 ML IV ONE (21:55)
[2022-10-26] MEDS ORDERED: DICY20TA11 PO (23:15)
[2022-10-26] MEDS ORDERED: ONDA4TAB5 PO (23:15)
--- NOTE | 2022-10-26 23:43 | NUR ---
IV removed. Catheter intact and site benign. Pressure and 4x4 gauze applied to site. No bleeding noted.
[2022-10-26 23:44] VITALS: BP 128/77
--- NOTE | 2022-10-26 23:46 | NUR ---
Patient discharged to home in stable condition WITH PATIENT'S EX TAKING PATIENT. Written and verbal after care instructions given. Patient verbalizes understanding of instructions. Stressed follow up or return to ER for worsening s/s.
== END 2022-10-26 23:47 | disposition home or self-care (01) ==
LOC: ER 14:52
DX: R10.9 Unspecified abdominal pain (principal); R19.7 Diarrhea, unspecified; I10 Essential (primary) hypertension; E78.5 Hyperlipidemia, unspecified; E11.9 Type 2 diabetes mellitus without complications; Z86.73 Personal history of transient ischemic attack (TIA), and cerebral infarction without residual deficits; Z88.2 Allergy status to sulfonamides; Z88.8 Allergy status to other drugs, medicaments and biological substances; Z91.018 Allergy to other foods; Z91.030 Bee allergy status; Z79.2 Long term (current) use of antibiotics; Z79.899 Other long term (current) drug therapy; Z79.1 Long term (current) use of non-steroidal anti-inflammatories (NSAID)
CPT/HCPCS: 99285; 74177; 96374; 96375; 80076; 80048; 81001; 82962; 84703; 83690; 85025; 36415; 96376; 74176; J2405; Q9967; J1170 ×2; J7040 ×2; A4663

== ENCOUNTER 2022-11-25 14:41 | Emergency (ER) | payer MEDICARE, OTHER ==
[~2022-11-25] VITALS: Ht 160 cm; Wt 69.9 kg
[~2022-11-25 14:41] MED LIST changes: +DICY20TA11 PO; +ONDA4TAB5 PO
[2022-11-25] MEDS ORDERED: ATOR20TA PO (15:03)
[2022-11-25] MEDS ORDERED: AMYL1CAP56 PO (15:03)
[2022-11-25] MEDS ORDERED: OMEP20TA20 PO (15:03)
--- NOTE | 2022-11-25 15:13 | NUR ---
Urine collected and sent to LAB.
[2022-11-25 15:34] LABS: *BILIRUBIN,URIN NEGATIVE (NEGATIVE); *BLOOD, URINE NEGATIVE (NEGATIVE); *CLARITY,URINE CLEAR (CLEAR); *COLOR,URINE YELLOW (YELLOW); *KETONES,URINE NEGATIVE (NEGATIVE); *UROBILINOGEN,URINE 0.2 E.U./dl (NORMAL); LEUKOCYTE ESTERASE ,URINE NEGATIVE (NEGATIVE); NITRITE, URINE NEGATIVE (NEGATIVE); PH,URINE 6.5 (5.0-8.0)
[2022-11-25 15:38] LABS: UGLUCOSE 2+ (NEGATIVE)
[2022-11-25 15:39] LABS: *URINE HCG, QUAL NEGATIVE (NEGATIVE)
[2022-11-25 16:04] LABS: HEMATOCRIT 30.4 % (31.2-41.9); MEAN CORPUSCULAR HEMOGLOBIN 29.8 uug (24.7-32.8); MEAN CORPUSCULAR VOLUME 89.6 fL (75.5-95.3); PLATELET COUNT (AUTO) 373 K/uL (179-408)
[2022-11-25 16:12] LABS: CARBON DIOXIDE 22 mmol/L (21-32); CHLORIDE 103 mmol/L (98-107); CREATININE 0.9 mg/dL (0.6-1.3); POTASSIUM 5.3 mmol/L (3.5-5.1); UREA NITROGEN, BLOOD 13 mg/dL (7-18)
[2022-11-25 16:18] LABS: ALANINE AMINOTRANSFERASE 8 U/L (14-59); ALKALINE PHOSPHATASE 97 U/L (50-136); ASPARTATE AMINOTRANSFERASE < 5 U/L (15-37); BILIRUBIN,DIRECT < 0.1 mg/dL (0.0-0.2); BILIRUBIN,TOTAL 0.2 mg/dL (0.2-1.0); LIPASE 211 U/L (73-393)
[2022-11-25 17:21] VITALS: BP 112/81; O2SAT 100
== END 2022-11-25 17:24 | disposition home or self-care (01) ==
LOC: ER 14:41
DX: R10.9 Unspecified abdominal pain (principal); R30.0 Dysuria; I10 Essential (primary) hypertension; E78.5 Hyperlipidemia, unspecified; E11.9 Type 2 diabetes mellitus without complications; Z86.73 Personal history of transient ischemic attack (TIA), and cerebral infarction without residual deficits; Z88.2 Allergy status to sulfonamides; Z88.8 Allergy status to other drugs, medicaments and biological substances; Z79.899 Other long term (current) drug therapy
CPT/HCPCS: 36415; 83690; 84703; 85025; A4663

== ENCOUNTER 2023-01-01 02:02 | Emergency (ER) | payer MEDICARE, OTHER ==
[~2023-01-01] VITALS: Ht 160 cm; Wt 66.7 kg
[~2023-01-01 02:02] MED LIST changes: -CEFP200T14 PO; -CEPH500T PO; -DICY20TA11 PO; -IBUP-1955 PO; -ONDA4TAB5 PO
[2023-01-01] MEDS ORDERED: FLUCONAZOLE 100 MG TABLET PO ONE (02:30)
[2023-01-01] MEDS ORDERED: ONDANSETRON ODT 4 MG TAB.RAPDIS SL ONE (02:30)
[2023-01-01] MEDS ORDERED: HYDROMORPHONE HCL 2 MG TABLET PO ONE (02:30)
[2023-01-01] MEDS ORDERED: ONDANSETRON ODT 4 MG TAB.RAPDIS ONE (02:32)
[2023-01-01] MEDS ORDERED: FLUCONAZOLE 100 MG TABLET ONE (02:32)
[2023-01-01] MEDS ORDERED: HYDROMORPHONE HCL 2 MG TABLET ONE (02:33)
[2023-01-01 03:08] LABS: *BILIRUBIN,URIN NEGATIVE (NEGATIVE); *BLOOD, URINE NEGATIVE (NEGATIVE); *CLARITY,URINE SLIGHTLY CLOUDY (CLEAR); *COLOR,URINE YELLOW (YELLOW); *KETONES,URINE TRACE (NEGATIVE); *PROTEIN,URINE NEGATIVE (NEGATIVE); *UROBILINOGEN,URINE 0.2 E.U./dl (NORMAL); LEUKOCYTE ESTERASE ,URINE TRACE (NEGATIVE); NITRITE, URINE NEGATIVE (NEGATIVE)
[2023-01-01 03:12] LABS: UGLUCOSE 2+ (NEGATIVE)
[2023-01-01 03:16] LABS: *URINE HCG, QUAL NEGATIVE (NEGATIVE)
[2023-01-01 03:18] LABS: BACTERIA,URINE FEW /HPF (NONE SEEN); RBC,URINE 0-3 /HPF (0-3); SQUAMOUS EPITHELIAL CELL,UR FEW /HPF (NONE SEEN); WBC,URINE 20-50 /HPF (0-3); YEAST,URINE MANY /HPF (NONE SEEN)
[2023-01-01] MEDS ORDERED: CEFI400C PO (03:22)
[2023-01-01] MEDS ORDERED: FLUC150T PO (03:22)
[2023-01-01] MEDS ORDERED: LIDOCAINE HCL 1% 20 ML VIAL ONE (03:26)
[2023-01-01] MEDS ORDERED: CEFTRIAXONE 1 G VIAL ONE (03:26)
[2023-01-01] MEDS ORDERED: CEFTRIAXONE 1 G VIAL IM ONE (03:30)
[2023-01-01 03:47] VITALS: BP 121/73; TEMP 98.9; O2SAT 97
[2023-01-01] MEDS ORDERED: CEFD300C3 PO (12:37)
== END 2023-01-01 03:40 | disposition home or self-care (01) ==
LOC: ER 02:05
DX: B37.31 Acute candidiasis of vulva and vagina (principal); I10 Essential (primary) hypertension; E11.9 Type 2 diabetes mellitus without complications; E78.5 Hyperlipidemia, unspecified; Z86.73 Personal history of transient ischemic attack (TIA), and cerebral infarction without residual deficits; Z88.2 Allergy status to sulfonamides; Z88.8 Allergy status to other drugs, medicaments and biological substances; Z91.013 Allergy to seafood; Z79.899 Other long term (current) drug therapy
CPT/HCPCS: 99284; 81001; 82962; 84703; 96372; 87040; J0696; J3490; A4663; Q0162

== ENCOUNTER 2024-02-17 14:52 | Inpatient (IN) | payer MEDICARE, OTHER ==
[~2024-02-17] VITALS: Ht 160 cm; Wt 75.7 kg
[~2024-02-17 14:52] MED LIST changes: +CEFD300C3 PO; +CEFI400C PO; +FLUC150T PO
[2024-02-17 15:17] LABS: *BILIRUBIN,URIN NEGATIVE (NEGATIVE); *COLOR,URINE YELLOW (YELLOW); *KETONES,URINE NEGATIVE (NEGATIVE); *PROTEIN,URINE NEGATIVE (NEGATIVE); *UROBILINOGEN,URINE 0.2 E.U./dl (NORMAL); LEUKOCYTE ESTERASE ,URINE 3+ (NEGATIVE); NITRITE, URINE NEGATIVE (NEGATIVE); UGLUCOSE NEGATIVE (NEGATIVE)
[2024-02-17 15:22] LABS: *BLOOD, URINE TRACE (NEGATIVE)
[2024-02-17 15:24] LABS: *CLARITY,URINE HAZY (CLEAR)
[2024-02-17 15:25] LABS: *URINE HCG, QUAL NEGATIVE (NEGATIVE)
[2024-02-17 15:36] LABS: RBC,URINE 0-3 /HPF (0-3)
[2024-02-17 15:37] LABS: BACTERIA,URINE FEW /HPF (NONE SEEN); SQUAMOUS EPITHELIAL CELL,UR FEW /HPF (NONE SEEN)
[2024-02-17 15:39] LABS: WBC,URINE TNTC /HPF (0-3)
[2024-02-17] MEDS ORDERED: OXYCODONE/APAP 5-325 MG TABLET ONE ×2 (15:47→18:46)
[2024-02-17] MEDS: OXYCODONE/APAP 5-325 MG TABLET PO ONE ×2 (16:00→18:48)
[2024-02-17 16:22] LABS: BASOPHILS % (AUTO) 0.5 % (0.0-2.0); DIFFERENTIAL COMMENT 1; EOSINOPHILS # (AUTO) 0.1 K/uL (0.0-0.7); HEMATOCRIT 33.3 % (31.2-41.9); HEMOGLOBIN 11.2 g/dL (10.9-14.3); LYMPHOCYTES # (AUTO) 2.2 K/uL (0.8-4.8); MEAN CORPUSCULAR HEMOGLOBIN 30.9 uug (24.7-32.8); MEAN CORPUSCULAR HGB CONC 34 g/dL (32.3-35.6); MEAN CORPUSCULAR VOLUME 91.7 fL (75.5-95.3); MONOCYTES # (AUTO) 0.3 K/uL (0.1-1.30); MONOCYTES % (AUTO) 3.6 % (0.0-11.0); NEUTROPHILS # (AUTO) 5.4 K/uL (1.8-8.9); NEUTROPHILS % (AUTO) 66.9 % (38.5-71.5); PLATELET COUNT (AUTO) 369 K/uL (179-408); RED BLOOD CELL COUNT(AUTO) 3.63 MIL/uL (3.63-4.92); RED CELL DISTRIBUTION WIDTH 14.8 % (12.3-17.7)
[2024-02-17 16:24] LABS: CALCIUM 8.6 mg/dL (8.5-10.1); CARBON DIOXIDE 27 mmol/L (21-32); CHLORIDE 101 mmol/L (98-107); GLUCOSE 170 mg/dL (74-106); POTASSIUM 5.3 mmol/L (3.5-5.1); SODIUM SERUM 135 mmol/L (136-145); UREA NITROGEN, BLOOD 30 mg/dL (7-18)
[2024-02-17 16:30] LABS: ALANINE AMINOTRANSFERASE 12 U/L (14-59); ALBUMIN 3.3 g/dL (3.4-5.0); ALKALINE PHOSPHATASE 119 U/L (50-136); ASPARTATE AMINOTRANSFERASE < 5 U/L (15-37); BILIRUBIN,DIRECT 0.1 mg/dL (0.0-0.2); BILIRUBIN,TOTAL 0.3 mg/dL (0.2-1.0); TOTAL PROTEIN, SERUM 7.6 g/dL (6.4-8.2)
[2024-02-17] MEDS: CEFTRIAXONE 1 G in IV DEXTROSE 5% 50 ML IV ONE (16:45)
[2024-02-17] MEDS: IV NS 1000 ML 1,000 ML IV ONE (16:45)
[2024-02-17] MEDS ORDERED: CEFTRIAXONE /D5W 50ML IVPB **ER PYXIS IV ONE (16:55)
[2024-02-17] MEDS ORDERED: REMEDY ESSENTIAL ZINC PASTE 113 GM TP PRN (18:45)
[2024-02-17] MEDS ORDERED: MAGNESIUM HYDROXIDE 30 ML LIQUID UDC PO PRN (18:45)
[2024-02-17] MEDS ORDERED: ACETAMINOPHEN 325 MG TABLET PO PRN (18:45)
[2024-02-17] MEDS: ONDANSETRON 4 MG/2 ML VIAL IV PRN (18:58)
[2024-02-17] MEDS: KETOROLAC TROMETHAMINE 30 MG INJ IVP PRN (22:18)
[2024-02-17 23:00] VITALS: BP 118/58; TEMP 98.2; O2SAT 96
[2024-02-18] MEDS ORDERED: DEXTROSE 50% 50 ML DISP.SYRIN IV PRN
[2024-02-18] MEDS: MORPHINE SULFATE 2 MG/1 ML DISP.SYRIN IV ONE (04:16)
[2024-02-18] MEDS ORDERED: MAGNESIUM HYDROXIDE 30 ML LIQUID UDC PO PRN (05:15)
[2024-02-18 06:00] VITALS: BP 124/61; TEMP 97.9; O2SAT 96
[2024-02-18 06:07] LABS: BASOPHILS # (AUTO) 0.1 K/UL (0.0-0.2); BASOPHILS % (AUTO) 0.8 % (0.0-2.0); EOSINOPHILS # (AUTO) 0.1 K/uL (0.0-0.7); EOSINOPHILS % (AUTO) 1.9 % (0.0-7.0); HEMATOCRIT 32.1 % (31.2-41.9); HEMOGLOBIN 10.9 g/dL (10.9-14.3); LYMPHOCYTES % (AUTO) 40.1 % (20.5-51.5); MEAN CORPUSCULAR HEMOGLOBIN 31.7 uug (24.7-32.8); MEAN CORPUSCULAR HGB CONC 34 g/dL (32.3-35.6); MONOCYTES # (AUTO) 0.3 K/uL (0.1-1.30); MONOCYTES % (AUTO) 4.3 % (0.0-11.0); NEUTROPHILS # (AUTO) 3.9 K/uL (1.8-8.9); NEUTROPHILS % (AUTO) 52.9 % (38.5-71.5); PLATELET COUNT (AUTO) 241 K/uL (179-408); RED BLOOD CELL COUNT(AUTO) 3.46 MIL/uL (3.63-4.92); RED CELL DISTRIBUTION WIDTH 14.7 % (12.3-17.7); WHITE BLOOD COUNT (AUTO) 7.4 K/uL (3.8-11.8)
[2024-02-18] MEDS: BLOOD SUGAR DIAGNOSTIC 1 EACH STRIP VI SCH (06:28)
[2024-02-18 06:32] LABS: MAGNESIUM 2.2 mg/dL (1.8-2.4); PHOSPHOROUS 4.5 mg/dL (2.5-4.9); POTASSIUM 4.5 mmol/L (3.5-5.1)
[2024-02-18] MEDS ORDERED: FERR-56 PO (10:59)
[2024-02-18] MEDS ORDERED: NITR100C6 PO (10:59)
[2024-02-18] MEDS ORDERED: INSU100V SQ (10:59)
[2024-02-18] MEDS ORDERED: GLIP10TA11 PO (10:59)
[2024-02-18] MEDS ORDERED: INSU100I26 SQ (10:59)
[2024-02-18] MEDS ORDERED: AMIT25TA9 PO (10:59)
[2024-02-18] MEDS ORDERED: DIVA500T4 PO (10:59)
[2024-02-18] MEDS ORDERED: LOSA50TA39 PO (10:59)
[2024-02-18] MEDS ORDERED: DORZ10DR11 LEFTEYE (10:59)
[2024-02-18] MEDS ORDERED: BRIM5DRO5 LEFTEYE (10:59)
[2024-02-18] MEDS ORDERED: CARI3CAP PO (10:59)
[2024-02-18] MEDS ORDERED: LISI2.5T14 PO (10:59)
[2024-02-18 11:07] VITALS: BP 125/70; TEMP 98.1; O2SAT 100
[2024-02-18] MEDS: INSULIN REGULAR, HUMAN 1000 UNIT/10 ML VIAL SQ PRN (12:34)
[2024-02-18] MEDS: CEFTRIAXONE 1 G in IV DEXTROSE 5% 50 ML IV SCH ×2 (16:21)
[2024-02-18 19:57] VITALS: BP 131/70; TEMP 98.5; O2SAT 100
[2024-02-18] MEDS: INSULIN REGULAR, HUMAN 300 UNITS/3 ML VIAL SQ PRN (20:22)
[2024-02-18] MEDS ORDERED: CEFTRIAXONE 1 G in IV DEXTROSE 5% 50 ML IV SCH (21:00)
[2024-02-19] MEDS ORDERED: CEFTRIAXONE /D5W 50ML IVPB **ER PYXIS IV ONE (00:03)
[2024-02-19] MEDS: CEFTRIAXONE 1 G in IV DEXTROSE 5% 50 ML IV SCH (00:39)
[2024-02-19 11:37] VITALS: BP 152/95; TEMP 98.5; O2SAT 97
[2024-02-19] MEDS ORDERED: LOTE5DRO RIGHTEYE (13:13)
[2024-02-19] MEDS ORDERED: OFLO5DRO3 RIGHTEYE (13:16)
[2024-02-19 15:51] VITALS: BP 150/82; TEMP 98.2; O2SAT 99
[2024-02-19 19:00] VITALS: BP 146/85; TEMP 98.5; O2SAT 97
[2024-02-20 06:00] VITALS: BP 120/78; TEMP 98.1; O2SAT 100
== END 2024-02-20 10:05 | disposition left against medical advice (07) | DRG 690 ==
LOC: ER 14:52 → MEDSURG3 21:19
PROVIDERS: ADMIT Student in an Organized Health Care Education/Training Program; ATTEND Student in an Organized Health Care Education/Training Program
PROC: 05HB33Z Insertion of Infusion Device into Right Basilic Vein, Percutaneous Approach (ICD-10-PCS; principal; 2024-02-17)
PROC: 05H933Z Insertion of Infusion Device into Right Brachial Vein, Percutaneous Approach (ICD-10-PCS; 2024-02-18)
DX: N39.0 Urinary tract infection, site not specified (principal); E87.1 Hypo-osmolality and hyponatremia; E44.1 Mild protein-calorie malnutrition; E86.0 Dehydration; E87.5 Hyperkalemia; Z68.29 Body mass index [BMI] 29.0-29.9, adult; E78.5 Hyperlipidemia, unspecified; F31.9 Bipolar disorder, unspecified; Z86.73 Personal history of transient ischemic attack (TIA), and cerebral infarction without residual deficits; Z87.440 Personal history of urinary (tract) infections; Z88.6 Allergy status to analgesic agent; Z91.030 Bee allergy status; Z88.2 Allergy status to sulfonamides; Z91.018 Allergy to other foods; Z82.49 Family history of ischemic heart disease and other diseases of the circulatory system; Z79.4 Long term (current) use of insulin; Z79.84 Long term (current) use of oral hypoglycemic drugs; Z79.899 Other long term (current) drug therapy; Z88.3 Allergy status to other anti-infective agents; I10 Essential (primary) hypertension; E11.9 Type 2 diabetes mellitus without complications
CPT/HCPCS: 36415; 83735; 84100; 84703; 85025; A4663; G0378; J0696; J1815; J1885; J2270; J2405; J7040

== ENCOUNTER 2024-03-22 21:22 | Emergency (ER) | payer MEDICARE, OTHER ==
[~2024-03-22] VITALS: Ht 160 cm; Wt 78.5 kg
[~2024-03-22 21:22] MED LIST changes: +AMIT25TA9 PO; -AMYL1CAP56 PO; +BRIM5DRO5 LEFTEYE; -CALC500T52 PO; +CARI3CAP PO; -CEFD300C3 PO; -CEFI400C PO; -CETI-90 PO; -DIVA500T2 PO; +DIVA500T4 PO; +DORZ10DR11 LEFTEYE; -FAMO40TA71 PO; +FERR-56 PO; -FLUC150T PO; +GLIP10TA11 PO; -GLIP10TA21 PO; +INSU100I26 SQ; +INSU100V SQ; +LISI2.5T14 PO; +LOSA50TA39 PO; +LOTE5DRO RIGHTEYE; -LURA40TA PO; -NEED1DIS MC; +NITR100C6 PO; -NOVOLOG FLEX; +OFLO5DRO3 RIGHTEYE; -OMEP20TA20 PO; -OXCA300T15 PO; -TRAM50TA2 PO; -VENL75TA4 PO
[2024-03-22 22:01] LABS: BASOPHILS % (AUTO) 0.7 % (0.0-2.0); EOSINOPHILS # (AUTO) 0.1 K/uL (0.0-0.7); EOSINOPHILS % (AUTO) 1.2 % (0.0-7.0); HEMATOCRIT 29.3 % (31.2-41.9); HEMOGLOBIN 10.3 g/dL (10.9-14.3); LYMPHOCYTES # (AUTO) 2.8 K/uL (0.8-4.8); LYMPHOCYTES % (AUTO) 38.4 % (20.5-51.5); MEAN CORPUSCULAR HEMOGLOBIN 31.9 uug (24.7-32.8); MEAN CORPUSCULAR HGB CONC 35 g/dL (32.3-35.6); MEAN CORPUSCULAR VOLUME 90.7 fL (75.5-95.3); MONOCYTES # (AUTO) 0.4 K/uL (0.1-1.30); MONOCYTES % (AUTO) 4.9 % (0.0-11.0); NEUTROPHILS % (AUTO) 54.8 % (38.5-71.5); PLATELET COUNT (AUTO) 493 K/uL (179-408); RED BLOOD CELL COUNT(AUTO) 3.23 MIL/uL (3.63-4.92); RED CELL DISTRIBUTION WIDTH 14.3 % (12.3-17.7); WHITE BLOOD COUNT (AUTO) 7.2 K/uL (3.8-11.8)
[2024-03-22 22:06] LABS: DIFFERENTIAL COMMENT 1
[2024-03-22 22:10] LABS: CALCIUM 8.9 mg/dL (8.5-10.1); CARBON DIOXIDE 29 mmol/L (21-32); CHLORIDE 102 mmol/L (98-107); CREATININE 1.1 mg/dL (0.6-1.3); GLUCOSE 266 mg/dL (74-106); POTASSIUM 4.3 mmol/L (3.5-5.1); SODIUM SERUM 138 mmol/L (136-145); UREA NITROGEN, BLOOD 16 mg/dL (7-18)
[2024-03-22 22:25] LABS: ALANINE AMINOTRANSFERASE 12 U/L (14-59); ALKALINE PHOSPHATASE 122 U/L (50-136); ASPARTATE AMINOTRANSFERASE 5 U/L (15-37); BILIRUBIN,TOTAL 0.3 mg/dL (0.2-1.0); ETHANOL < 3 MG/DL (0-10); NT-PRO BNP 115 pg/mL (0-125); TOTAL PROTEIN, SERUM 7.2 g/dL (6.4-8.2)
[2024-03-22] MEDS ORDERED: BENZ0.5T43 PO (22:25)
[2024-03-22] MEDS ORDERED: INSU100C (22:25)
[2024-03-22] MEDS ORDERED: GLIP-19 PO (22:25)
[2024-03-22 22:32] LABS: *BILIRUBIN,URIN NEGATIVE (NEGATIVE); *CLARITY,URINE CLEAR (CLEAR); *COLOR,URINE YELLOW (YELLOW); *KETONES,URINE NEGATIVE (NEGATIVE); *PROTEIN,URINE NEGATIVE (NEGATIVE); *UROBILINOGEN,URINE 0.2 E.U./dl (NORMAL); LEUKOCYTE ESTERASE ,URINE 3+ (NEGATIVE); NITRITE, URINE NEGATIVE (NEGATIVE)
[2024-03-22 22:49] LABS: UGLUCOSE 1+ (NEGATIVE)
[2024-03-22 22:50] LABS: *BLOOD, URINE TRACE (NEGATIVE)
[2024-03-22 22:55] LABS: WBC,URINE 20-50 /HPF (0-3)
[2024-03-22 22:56] LABS: *AMPHETAMINE, URINE NEGATIVE (NEGATIVE); *BARBITURATE, URINE NEGATIVE (NEGATIVE); *BENZODIAZEPINE, URINE NEGATIVE (NEGATIVE); *CANNABINOID, URINE NEGATIVE (NEGATIVE); *COCCAINE, URINE NEGATIVE (NEGATIVE); *OPIATE, URINE NEGATIVE (NEGATIVE); *PHENCYCLIDINE SCREEN,URINE NEGATIVE (NEGATIVE); BACTERIA,URINE MODERATE /HPF (NONE SEEN); FENTANYL, URINE NEGATIVE (NEGATIVE)
[2024-03-22 22:57] LABS: MUCUS,URINE FEW /LPF (0-FEW); SQUAMOUS EPITHELIAL CELL,UR FEW /HPF (NONE SEEN)
[2024-03-23] MEDS ORDERED: NITR100C6 PO (00:01)
[2024-03-23 01:30] VITALS: O2SAT 99
== END 2024-03-23 01:30 | disposition home or self-care (01) ==
LOC: ER 21:22
DX: R07.89 Other chest pain (principal); N39.0 Urinary tract infection, site not specified; R00.0 Tachycardia, unspecified; E78.5 Hyperlipidemia, unspecified; E11.9 Type 2 diabetes mellitus without complications; F31.9 Bipolar disorder, unspecified; Z86.73 Personal history of transient ischemic attack (TIA), and cerebral infarction without residual deficits; Z79.899 Other long term (current) drug therapy; Z79.84 Long term (current) use of oral hypoglycemic drugs; Z88.1 Allergy status to other antibiotic agents; Z88.2 Allergy status to sulfonamides; Z91.030 Bee allergy status
CPT/HCPCS: 36415; 84484; 85025; A4606; A4663; G0480

== ENCOUNTER 2024-08-03 14:34 | Emergency (ER) | payer MEDICARE, OTHER ==
[~2024-08-03] VITALS: Ht 160 cm; Wt 73.5 kg
[~2024-08-03 14:34] MED LIST changes: +BENZ0.5T43 PO; +GLIP-19 PO; -GLIP10TA11 PO; +INSU100C; -INSU100I26 SQ; -INSU100V SQ; -OFLO5DRO3 RIGHTEYE; -ONDA8TAB13 PO
[2024-08-03] MEDS ORDERED: CLIN300C3 PO (15:15)
[2024-08-03] MEDS ORDERED: MUPI22OI2 TP (15:15)
[2024-08-03] MEDS ORDERED: METO-357 PO (15:38)
[2024-08-03] MEDS ORDERED: CLOP75TA15 PO (15:38)
[2024-08-03] MEDS ORDERED: INSU100I26 SQ (15:38)
[2024-08-03] MEDS ORDERED: MOUNJARO (15:38)
[2024-08-03] MEDS ORDERED: ASPI81TA31 PO (15:38)
[2024-08-03 16:30] LABS: CARBON DIOXIDE 23 mmol/L (21-32); CHLORIDE 101 mmol/L (98-107); GLUCOSE 344 mg/dL (74-106); POTASSIUM 4.3 mmol/L (3.5-5.1); SODIUM SERUM 136 mmol/L (136-145); UREA NITROGEN, BLOOD 20 mg/dL (7-18)
[2024-08-03 16:44] LABS: ALANINE AMINOTRANSFERASE 11 U/L (14-59); ALBUMIN 3.2 g/dL (3.4-5.0); ALKALINE PHOSPHATASE 146 U/L (50-136); ASPARTATE AMINOTRANSFERASE 7 U/L (15-37); BILIRUBIN,DIRECT 0.2 mg/dL (0.0-0.2); BILIRUBIN,TOTAL 0.2 mg/dL (0.2-1.0); NT-PRO BNP 231 pg/mL (0-125)
[2024-08-03 16:46] VITALS: BP 155/83; O2SAT 99
== END 2024-08-03 16:49 | disposition home or self-care (01) ==
LOC: ER 15:47
DX: L08.9 Local infection of the skin and subcutaneous tissue, unspecified (principal); B95.62 Methicillin resistant Staphylococcus aureus infection as the cause of diseases classified elsewhere; E11.9 Type 2 diabetes mellitus without complications; E78.5 Hyperlipidemia, unspecified; F31.9 Bipolar disorder, unspecified; I10 Essential (primary) hypertension; Z79.02 Long term (current) use of antithrombotics/antiplatelets; Z79.4 Long term (current) use of insulin; Z79.82 Long term (current) use of aspirin; Z79.84 Long term (current) use of oral hypoglycemic drugs; Z79.899 Other long term (current) drug therapy; Z86.73 Personal history of transient ischemic attack (TIA), and cerebral infarction without residual deficits; Z87.440 Personal history of urinary (tract) infections; Z88.1 Allergy status to other antibiotic agents; Z88.2 Allergy status to sulfonamides; Z91.030 Bee allergy status; Z60.2 Problems related to living alone
CPT/HCPCS: 36415; 84484; A4606; A4663

== ENCOUNTER 2024-12-18 01:06 | Emergency (ER) | payer MEDICARE, OTHER ==
[~2024-12-18] VITALS: Ht 160 cm; Wt 78.5 kg
[~2024-12-18 01:06] MED LIST changes: +ASPI81TA31 PO; +CLIN300C3 PO; +CLOP75TA15 PO; -DIVA500T4 PO; -FERR-56 PO; -GLIP-19 PO; +INSU100I26 SQ; -METO-356 PO; +METO-357 PO; +MOUNJARO; +MUPI22OI2 TP
[2024-12-18] MEDS ORDERED: ONDANSETRON ODT 4 MG TAB.RAPDIS ONE (02:26)
[2024-12-18] MEDS ORDERED: HYDROMORPHONE HCL 2 MG TABLET ONE (02:27)
[2024-12-18] MEDS: HYDROMORPHONE HCL 2 MG TABLET PO ONE (02:29)
[2024-12-18] MEDS: ONDANSETRON ODT 4 MG TAB.RAPDIS SL ONE (02:29)
[2024-12-18 02:35] VITALS: BP 129/74; O2SAT 96
== END 2024-12-18 02:36 | disposition home or self-care (01) ==
LOC: ER 01:12
DX: M79.604 Pain in right leg (principal); M79.605 Pain in left leg; E11.9 Type 2 diabetes mellitus without complications; E78.5 Hyperlipidemia, unspecified; F41.9 Anxiety disorder, unspecified; F31.9 Bipolar disorder, unspecified; Z79.02 Long term (current) use of antithrombotics/antiplatelets; Z79.4 Long term (current) use of insulin; Z79.82 Long term (current) use of aspirin; Z79.899 Other long term (current) drug therapy; Z86.718 Personal history of other venous thrombosis and embolism; Z86.73 Personal history of transient ischemic attack (TIA), and cerebral infarction without residual deficits; Z88.1 Allergy status to other antibiotic agents; Z88.2 Allergy status to sulfonamides; Z91.030 Bee allergy status; Z88.8 Allergy status to other drugs, medicaments and biological substances; Z91.018 Allergy to other foods
CPT/HCPCS: 99284; 93970; Q0163; A4606; A4663; Q0162

== ENCOUNTER 2025-01-03 16:20 | Emergency (ER) | payer MEDICARE, OTHER | END 2025-01-03 18:20 | disposition left against medical advice (07) | LOC: ER 16:30 | DX: R10.9 Unspecified abdominal pain (principal); Z53.21 Procedure and treatment not carried out due to patient leaving prior to being seen by health care provider ==

== ENCOUNTER 2025-01-15 16:46 | Inpatient (IN) | payer MEDICARE, OTHER ==
[~2025-01-15] VITALS: Ht 160 cm; Wt 79.4 kg
[2025-01-15] MEDS: IV NORMAL SALINE 1000 ML BAG IV ONE (17:45)
[2025-01-15 19:25] LABS: PLATELET COUNT (AUTO) 329 K/uL (179-408); RED BLOOD CELL COUNT(AUTO) 3.61 MIL/uL (3.63-4.92); RED CELL DISTRIBUTION WIDTH 16.1 % (12.3-17.7); WHITE BLOOD COUNT (AUTO) 6.2 K/uL (3.8-11.8)
[2025-01-15 19:30] LABS: CREATININE 1.2 mg/dL (0.6-1.3); SODIUM SERUM 131 mmol/L (136-145); UREA NITROGEN, BLOOD 23 mg/dL (7-18)
[2025-01-15 19:41] LABS: ASPARTATE AMINOTRANSFERASE 8 U/L (15-37); TOTAL PROTEIN, SERUM 8.1 g/dL (6.4-8.2)
[2025-01-15] MEDS ORDERED: POTASSIUM CHLORIDE 20 MEQ TAB.PRT.SR ONE (20:11)
[2025-01-15] MEDS ORDERED: INSULIN REGULAR, HUMAN 1000 UNIT/10 ML VIAL ONE (20:12)
[2025-01-15] MEDS: INSULIN REGULAR, HUMAN 1000 UNIT/10 ML VIAL IV ONE (20:18)
[2025-01-15] MEDS: POTASSIUM CHLORIDE 20 MEQ TAB.PRT.SR PO ONE (20:25)
[2025-01-15] MEDS ORDERED: ONDANSETRON 4 MG/2 ML VIAL ONE (20:26)
[2025-01-15] MEDS ORDERED: HYDROMORPHONE 1 MG/1 ML DISP.SYRIN ONE (20:26)
[2025-01-15] MEDS: ONDANSETRON 4 MG/2 ML VIAL IV ONE (20:29)
[2025-01-15] MEDS: HYDROMORPHONE 1 MG/1 ML DISP.SYRIN IV ONE (20:29)
[2025-01-15 20:37] LABS: *BILIRUBIN,URIN NEGATIVE (NEGATIVE); *BLOOD, URINE 1+ (NEGATIVE); *CLARITY,URINE CLEAR (CLEAR); *COLOR,URINE YELLOW (YELLOW); *KETONES,URINE TRACE (NEGATIVE); *PROTEIN,URINE NEGATIVE (NEGATIVE); *UROBILINOGEN,URINE 0.2 E.U./dl (NORMAL); LEUKOCYTE ESTERASE ,URINE TRACE (NEGATIVE); NITRITE, URINE NEGATIVE (NEGATIVE); UGLUCOSE 3+ (NEGATIVE)
[2025-01-15 21:08] VITALS: BP 119/83
[2025-01-15 23:00] VITALS: BP 121/69; TEMP 98.5; O2SAT 100
[2025-01-15] MEDS ORDERED: DEXTROSE 50% 50 ML DISP.SYRIN IV PRN (23:00)
[2025-01-15] MEDS ORDERED: ACETAMINOPHEN 325 MG TABLET PO PRN (23:00)
[2025-01-15] MEDS ORDERED: ZOLPIDEM 5 MG TABLET PO PRN (23:00)
[2025-01-15] MEDS ORDERED: MAGNESIUM HYDROXIDE 30 ML LIQUID UDC PO PRN (23:00)
[2025-01-15] MEDS ORDERED: REMEDY ESSENTIAL ZINC PASTE 113 GM TP PRN (23:00)
[2025-01-15] MEDS ORDERED: ONDANSETRON 4 MG/2 ML VIAL IV PRN (23:00)
[2025-01-15] MEDS: IV 1/2NS 1000 ML 1,000 ML IV PRN (23:35)
[2025-01-15] MEDS: BLOOD SUGAR DIAGNOSTIC 1 EACH STRIP VI SCH (23:42)
[2025-01-15] MEDS: INSULIN REGULAR, HUMAN 300 UNITS/3 ML VIAL SQ PRN (23:46)
[2025-01-15] MEDS: IBUPROFEN 400 MG TABLET PO PRN (23:47)
[2025-01-16 06:43] VITALS: BP 100/53; TEMP 97.4; O2SAT 95
[2025-01-16 06:50] LABS: CREATININE 0.8 mg/dL (0.6-1.3); SODIUM SERUM 138.0 mmol/L (136-145); UREA NITROGEN, BLOOD 16.0 mg/dL (7-18)
[2025-01-16] MEDS: INSULIN REGULAR, HUMAN 1000 UNIT/10 ML VIAL SQ PRN (08:06)
[2025-01-16] MEDS: ASPIRIN 81 MG TAB.CHEW PO SCH (08:16)
[2025-01-16] MEDS: METOPROLOL SUCCINATE XL 50 MG TAB.SR.24H PO SCH (08:16)
[2025-01-16] MEDS: BENZTROPINE MESYLATE 0.5 MG TABLET PO SCH (08:16)
[2025-01-16 08:17] VITALS: BP 115/61
[2025-01-16] MEDS: LOSARTAN POTASSIUM 50 MG TABLET PO SCH (08:17)
[2025-01-16] MEDS: CLOPIDOGREL 75 MG TABLET PO SCH (08:21)
[2025-01-16 08:22] LABS: PLATELET COUNT (AUTO) 272 K/uL (179-408); RED BLOOD CELL COUNT(AUTO) 3.64 MIL/uL (3.63-4.92); RED CELL DISTRIBUTION WIDTH 16.3 % (12.3-17.7); WHITE BLOOD COUNT (AUTO) 5.1 K/uL (3.8-11.8)
[2025-01-16] MEDS ORDERED: BRIMONIDINE 0.2% OPHT DROP 10 ML BOTTLE LEFTEYE SCH (09:00)
[2025-01-16] MEDS ORDERED: LOTEPREDNOL 0.5% OPHT DROP 5 ML BOTTLE RIGHTEYE SCH ×2 (09:00)
[2025-01-16] MEDS ORDERED: DORZOLAMIDE/TIMOLOL OPHT DROP 10 ML BOTTLE LEFTEYE SCH (09:00)
[2025-01-16] MEDS: BRIMONIDINE 0.2% OPHT DROP 10 ML BOTTLE LEFTEYE SCH (11:25)
[2025-01-16] MEDS: DORZOLAMIDE/TIMOLOL OPHT DROP 10 ML BOTTLE LEFTEYE SCH (11:26)
[2025-01-16] MEDS ORDERED: INSU200I SQ (13:02)
[2025-01-16] MEDS ORDERED: INSU3INS6 SQ (13:02)
[2025-01-16] MEDS ORDERED: INSULIN GLARGINE,HUM 300 UNITS/3 ML CARTRIDGE SQ SCH (18:00)
[2025-01-16] MEDS ORDERED: AMITRIPTYLINE HCL 25 MG TABLET PO SCH (21:00)
[2025-01-16] MEDS ORDERED: ATORVASTATIN 20 MG TABLET PO SCH (21:00)
[2025-01-17] MEDS ORDERED: LOSARTAN POTASSIUM 50 MG TABLET PO SCH (09:00)
[2025-01-17] MEDS ORDERED: CLOPIDOGREL 75 MG TABLET PO SCH (09:00)
== END 2025-01-16 14:15 | disposition home health service (06) | DRG 920 ==
LOC: ER 16:55 → MEDSURG3 22:03
PROVIDERS: ADMIT Internal Medicine; ATTEND Internal Medicine
PROC: 05HB33Z Insertion of Infusion Device into Right Basilic Vein, Percutaneous Approach (ICD-10-PCS; principal; 2025-01-15)
DX: T85.694A Other mechanical complication of insulin pump, initial encounter (principal); E87.1 Hypo-osmolality and hyponatremia; N17.9 Acute kidney failure, unspecified; T38.3X6A Underdosing of insulin and oral hypoglycemic [antidiabetic] drugs, initial encounter; E10.65 Type 1 diabetes mellitus with hyperglycemia; Z96.41 Presence of insulin pump (external) (internal); Y82.8 Other medical devices associated with adverse incidents; Y92.009 Unspecified place in unspecified non-institutional (private) residence as the place of occurrence of the external cause; D63.8 Anemia in other chronic diseases classified elsewhere; F31.9 Bipolar disorder, unspecified; G43.909 Migraine, unspecified, not intractable, without status migrainosus; R94.31 Abnormal electrocardiogram [ECG] [EKG]; Y74.2 Prosthetic and other implants, materials and accessory general hospital and personal-use devices associated with adverse incidents; Z79.4 Long term (current) use of insulin; I10 Essential (primary) hypertension; H40.9 Unspecified glaucoma; G89.29 Other chronic pain; E78.5 Hyperlipidemia, unspecified; Z88.3 Allergy status to other anti-infective agents; F41.0 Panic disorder [episodic paroxysmal anxiety]; Z79.02 Long term (current) use of antithrombotics/antiplatelets; Z79.899 Other long term (current) drug therapy; Z82.49 Family history of ischemic heart disease and other diseases of the circulatory system; Z86.73 Personal history of transient ischemic attack (TIA), and cerebral infarction without residual deficits; Z87.440 Personal history of urinary (tract) infections; Z88.2 Allergy status to sulfonamides; Z88.6 Allergy status to analgesic agent; Z91.018 Allergy to other foods
CPT/HCPCS: 36415; 71045; 83605; 83735; 84100; 84484; 85025; 85730; 87040; 87086; A4606; A4663; G0378; J1171; J1815; J2405; J7040

== ENCOUNTER 2025-02-06 14:19 | Inpatient (IN) | payer MEDICARE, OTHER ==
[~2025-02-06] VITALS: Ht 160 cm; Wt 75.3 kg
[~2025-02-06 14:19] MED LIST changes: -CLIN300C3 PO; -INSU100C; -INSU100I26 SQ; +INSU200I SQ; +INSU3INS6 SQ; -LOSA50TA39 PO; -LOTE5DRO RIGHTEYE; -MOUNJARO; -MUPI22OI2 TP; -NITR100C6 PO
[2025-02-06] MEDS ORDERED: IV NORMAL SALINE 250 ML IV ONE (14:38)
[2025-02-06] MEDS ORDERED: IOHEXOL 350 100 ML INFUS..BTL ONE (14:38)
[2025-02-06] MEDS ORDERED: SWABABLE VALVE TRANSFER SET EA MC ONE (14:38)
[2025-02-06 15:36] LABS: PLATELET COUNT (AUTO) 409 K/uL (179-408); RED BLOOD CELL COUNT(AUTO) 4.11 MIL/uL (3.63-4.92); RED CELL DISTRIBUTION WIDTH 16.1 % (12.3-17.7); WHITE BLOOD COUNT (AUTO) 5.4 K/uL (3.8-11.8)
[2025-02-06] MEDS ORDERED: DEXAMETHASONE SOD PHOSPHATE 4 MG INJ ONE (15:39)
[2025-02-06] MEDS ORDERED: diphenhydrAMINE 50 MG/1 ML VIAL ONE (15:39)
[2025-02-06] MEDS ORDERED: VALPROATE SODIUM 500 MG/5 ML VIAL IV ONE (15:40)
[2025-02-06] MEDS ORDERED: METOCLOPRAMIDE HCL 10 MG/2 ML VIAL ONE (15:40)
[2025-02-06] MEDS: IV NORMAL SALINE 1000 ML BAG IV ONE (15:47)
[2025-02-06] MEDS: METOCLOPRAMIDE HCL 10 MG/2 ML VIAL IV ONE (15:47)
[2025-02-06] MEDS: VALPROATE SODIUM 500 MG/5 ML VIAL IV ONE (15:47)
[2025-02-06] MEDS: diphenhydrAMINE 50 MG/1 ML VIAL IV ONE (15:47)
[2025-02-06] MEDS: DEXAMETHASONE SOD PHOSPHATE 4 MG INJ IV ONE (15:47)
[2025-02-06 15:48] LABS: CREATININE 1.0 mg/dL (0.6-1.3); SODIUM SERUM 140.0 mmol/L (136-145); UREA NITROGEN, BLOOD 23.0 mg/dL (7-18)
[2025-02-06 16:00] VITALS: BP 141/81
[2025-02-06 17:48] VITALS: BP 167/100; TEMP 98.2; O2SAT 98
[2025-02-06] MEDS ORDERED: BRIM10DR6 LEFTEYE (18:27)
[2025-02-06] MEDS ORDERED: MAGNESIUM HYDROXIDE 30 ML LIQUID UDC PO PRN (18:30)
[2025-02-06] MEDS ORDERED: ENOXAPARIN SODIUM 40 MG/0.4 ML DISP.SYRIN SQ SCH (18:30)
[2025-02-06] MEDS ORDERED: ONDANSETRON 4 MG/2 ML VIAL IV PRN (18:30)
[2025-02-06] MEDS ORDERED: HYDROCODONE/APAP 5-325MG TABLET PO PRN (18:30)
[2025-02-06] MEDS ORDERED: DEXTROSE 50% 50 ML DISP.SYRIN IV PRN (18:30)
[2025-02-06] MEDS ORDERED: ZOLPIDEM 5 MG TABLET PO PRN (18:30)
[2025-02-06] MEDS ORDERED: INSULIN REGULAR, HUMAN 1000 UNIT/10 ML VIAL SQ PRN (18:30)
[2025-02-06] MEDS ORDERED: ACETAMINOPHEN 325 MG TABLET PO PRN (18:30)
[2025-02-06] MEDS ORDERED: INSU100I4 SQ (18:31)
[2025-02-06] MEDS ORDERED: INSU100I26 SQ (18:32)
[2025-02-06] MEDS ORDERED: TRAM50TA2 PO (18:34)
[2025-02-06] MEDS ORDERED: MOUNJARO SQ (18:36)
[2025-02-06] MEDS ORDERED: OXCA300T15 PO (18:37)
[2025-02-06 18:41] VITALS: BP 151/88
[2025-02-06] MEDS ORDERED: BRIMONIDINE 0.2% OPHT DROP 10 ML BOTTLE LEFTEYE SCH (18:45)
[2025-02-06] MEDS ORDERED: TRAMADOL HCL 50 MG TABLET PO PRN (18:45)
[2025-02-06] MEDS ORDERED: ASPIRIN 81 MG TAB.CHEW PO SCH (18:45)
[2025-02-06] MEDS ORDERED: DORZOLAMIDE/TIMOLOL OPHT DROP 10 ML BOTTLE LEFTEYE SCH (18:45)
[2025-02-06] MEDS ORDERED: ATORVASTATIN 20 MG TABLET PO SCH (21:00)
[2025-02-06] MEDS ORDERED: AMITRIPTYLINE HCL 25 MG TABLET PO SCH (21:00)
[2025-02-06] MEDS ORDERED: BENZTROPINE MESYLATE 0.5 MG TABLET PO SCH (21:00)
[2025-02-06] MEDS ORDERED: BLOOD SUGAR DIAGNOSTIC 1 EACH STRIP VI SCH (21:00)
[2025-02-06] MEDS ORDERED: OXCARBAZEPINE 300 MG TABLET PO SCH (21:00)
[2025-02-06] MEDS ORDERED: INSULIN GLARGINE,HUM 300 UNITS/3 ML CARTRIDGE SQ SCH (21:00)
[2025-02-07] MEDS ORDERED: PANTOPRAZOLE SODIUM 40 MG TABLET.DR PO SCH (07:00)
== END 2025-02-06 21:47 | disposition left against medical advice (07) | DRG 103 ==
LOC: ER 14:19 → TELE-TD3 16:55 → TELE3 18:33
DX: G43.109 Migraine with aura, not intractable, without status migrainosus (principal); I10 Essential (primary) hypertension; R29.818 Other symptoms and signs involving the nervous system; R29.703 NIHSS score 3; Z53.29 Procedure and treatment not carried out because of patient's decision for other reasons; I65.22 Occlusion and stenosis of left carotid artery; D64.9 Anemia, unspecified; E86.0 Dehydration; E78.5 Hyperlipidemia, unspecified; F31.9 Bipolar disorder, unspecified; I48.0 Paroxysmal atrial fibrillation; E66.9 Obesity, unspecified; E11.9 Type 2 diabetes mellitus without complications; H40.9 Unspecified glaucoma; Z86.73 Personal history of transient ischemic attack (TIA), and cerebral infarction without residual deficits; Z95.820 Peripheral vascular angioplasty status with implants and grafts; Z79.02 Long term (current) use of antithrombotics/antiplatelets; Z79.4 Long term (current) use of insulin; Z79.899 Other long term (current) drug therapy; Z68.29 Body mass index [BMI] 29.0-29.9, adult; Z88.3 Allergy status to other anti-infective agents; Z88.2 Allergy status to sulfonamides; Z91.030 Bee allergy status; Z88.6 Allergy status to analgesic agent; Z91.018 Allergy to other foods; Z82.49 Family history of ischemic heart disease and other diseases of the circulatory system; F41.9 Anxiety disorder, unspecified; R42 Dizziness and giddiness
CPT/HCPCS: 36415; 70450; 70496; 71045; 84443; 85025; 85651; 85730; G0378; J1100; J1200; J1815; J2765; J3490; J7040; Q9967

== ENCOUNTER 2025-03-14 23:53 | Emergency (ER) | payer MEDICARE, OTHER ==
[~2025-03-14] VITALS: Ht 160 cm; Wt 71.2 kg
[~2025-03-14 23:53] MED LIST changes: +BRIM10DR6 LEFTEYE; -BRIM5DRO5 LEFTEYE; -CLOP75TA15 PO; +INSU100I26 SQ; +INSU100I4 SQ; -INSU200I SQ; -INSU3INS6 SQ; -LISI2.5T14 PO; -METO-357 PO; +MOUNJARO SQ; +OXCA300T15 PO; +TRAM50TA2 PO
[2025-03-15] MEDS: IV NORMAL SALINE 1000 ML BAG IV ONE ×2 (00:30→03:07)
[2025-03-15] MEDS: KETOROLAC TROMETHAMINE 30 MG INJ IVP ONE (00:30)
[2025-03-15] MEDS: METOCLOPRAMIDE HCL 10 MG/2 ML VIAL IV ONE (00:30)
[2025-03-15] MEDS: diphenhydrAMINE 50 MG/1 ML VIAL IV ONE (00:30)
[2025-03-15 00:44] LABS: PLATELET COUNT (AUTO) 356 K/uL (179-408); RED BLOOD CELL COUNT(AUTO) 3.82 MIL/uL (3.63-4.92); RED CELL DISTRIBUTION WIDTH 19.5 % (12.3-17.7); WHITE BLOOD COUNT (AUTO) 7.1 K/uL (3.8-11.8)
[2025-03-15 00:57] LABS: ASPARTATE AMINOTRANSFERASE 11.0 U/L (15-37); CREATININE 1.3 mg/dL (0.6-1.3); SODIUM SERUM 136.0 mmol/L (136-145); TOTAL PROTEIN, SERUM 7.7 g/dL (6.4-8.2); UREA NITROGEN, BLOOD 33.0 mg/dL (7-18)
[2025-03-15] MEDS ORDERED: METOCLOPRAMIDE HCL 10 MG/2 ML VIAL ONE (01:48)
[2025-03-15] MEDS ORDERED: diphenhydrAMINE 50 MG/1 ML VIAL ONE (01:48)
[2025-03-15] MEDS ORDERED: KETOROLAC TROMETHAMINE 30 MG INJ ONE (01:48)
[2025-03-15] MEDS: LIDOCAINE 2%-EPI 1:100,000 20 ML VIAL IJ ONE (02:00)
[2025-03-15] MEDS ORDERED: INSULIN REGULAR, HUMAN 1000 UNIT/10 ML VIAL ONE (02:29)
[2025-03-15] MEDS: INSULIN REGULAR, HUMAN 1000 UNIT/10 ML VIAL SQ ONE (02:43)
[2025-03-15 03:00] VITALS: BP 134/81
[2025-03-15] MEDS ORDERED: TRAMADOL HCL 50 MG TABLET ONE (03:08)
[2025-03-15] MEDS: TRAMADOL HCL 50 MG TABLET PO ONE (03:09)
[2025-03-15] MEDS: MORPHINE SULFATE 2 MG/1 ML DISP.SYRIN IV ONE (03:15)
[2025-03-15 04:52] VITALS: BP 136/76; TEMP 98.2; O2SAT 99
== END 2025-03-15 04:30 | disposition home or self-care (01) ==
LOC: ER 03-15 00:01
DX: G43.909 Migraine, unspecified, not intractable, without status migrainosus (principal); E86.0 Dehydration; E11.65 Type 2 diabetes mellitus with hyperglycemia; E78.5 Hyperlipidemia, unspecified; F31.9 Bipolar disorder, unspecified; H40.9 Unspecified glaucoma; I11.9 Hypertensive heart disease without heart failure; Z79.4 Long term (current) use of insulin; Z79.82 Long term (current) use of aspirin; Z86.73 Personal history of transient ischemic attack (TIA), and cerebral infarction without residual deficits; Z88.1 Allergy status to other antibiotic agents; Z88.2 Allergy status to sulfonamides; Z91.030 Bee allergy status
CPT/HCPCS: 99284; 96374; 96361; 96375; 80076; 80048; 82962; 85025; 36415; 93005; J1885; J1200; J2765; J1815; J7040 ×2; A4606; A4663

== ENCOUNTER 2025-03-21 10:52 | Inpatient (IN) | payer MEDICARE, OTHER ==
[~2025-03-21] VITALS: Ht 160 cm; Wt 71.2 kg
[2025-03-21 11:55] LABS: PLATELET COUNT (AUTO) 350 K/uL (179-408); RED BLOOD CELL COUNT(AUTO) 4.06 MIL/uL (3.63-4.92); RED CELL DISTRIBUTION WIDTH 19.4 % (12.3-17.7); WHITE BLOOD COUNT (AUTO) 6.0 K/uL (3.8-11.8)
[2025-03-21 12:10] LABS: ASPARTATE AMINOTRANSFERASE 8.0 U/L (15-37); CREATININE 1.0 mg/dL (0.6-1.3); SODIUM SERUM 135.0 mmol/L (136-145); TOTAL PROTEIN, SERUM 8.1 g/dL (6.4-8.2); UREA NITROGEN, BLOOD 29.0 mg/dL (7-18)
[2025-03-21] MEDS ORDERED: RIBO100T3 PO (13:50)
[2025-03-21] MEDS ORDERED: NAPR-1009 PO (13:50)
[2025-03-21] MEDS ORDERED: ROBAXIN PO (13:50)
[2025-03-21] MEDS ORDERED: METO-295 PO (13:50)
[2025-03-21] MEDS ORDERED: FAMO40TA7 PO (13:50)
[2025-03-21] MEDS ORDERED: MECL-159 PO (13:50)
[2025-03-21] MEDS ORDERED: MAGN400C PO (13:50)
[2025-03-21] MEDS ORDERED: BUPR2TAB3 SL (13:50)
[2025-03-21] MEDS ORDERED: SUMA50TA PO (13:50)
[2025-03-21] MEDS ORDERED: CETI-90 PO (13:50)
[2025-03-21] MEDS ORDERED: PANT40TA49 PO (13:50)
[2025-03-21] MEDS ORDERED: GABA300C PO (13:50)
[2025-03-21 14:00] VITALS: BP 120/88
[2025-03-21] MEDS ORDERED: IBUPROFEN 600 MG TABLET ONE (14:19)
[2025-03-21] MEDS: IBUPROFEN 600 MG TABLET PO ONE (14:24)
[2025-03-21] MEDS: IV NS 1000 ML 1,000 ML IV ONE (14:45)
[2025-03-21] MEDS ORDERED: REMEDY ESSENTIAL ZINC PASTE 113 GM TP PRN (15:30)
[2025-03-21] MEDS ORDERED: DEXTROSE 50% 50 ML DISP.SYRIN IV PRN (15:30)
[2025-03-21] MEDS ORDERED: MAGNESIUM HYDROXIDE 30 ML LIQUID UDC PO PRN (15:30)
[2025-03-21 16:06] VITALS: BP 155/94; TEMP 98.6; O2SAT 100
[2025-03-21] MEDS ORDERED: ATOR80TA PO (17:09)
[2025-03-21] MEDS ORDERED: ASPI-1420 PO (17:09)
[2025-03-21] MEDS ORDERED: LEVO2.5S4 PO (17:09)
[2025-03-21] MEDS ORDERED: DIPH25CA83 PO (17:09)
[2025-03-21] MEDS ORDERED: OXYC5CAP18 PO (17:09)
[2025-03-21] MEDS: BLOOD SUGAR DIAGNOSTIC 1 EACH STRIP VI SCH (17:18)
[2025-03-21] MEDS: PANTOPRAZOLE SODIUM 40 MG TABLET.DR PO SCH (17:18)
[2025-03-21] MEDS: INSULIN REGULAR, HUMAN 1000 UNIT/10 ML VIAL SQ PRN (17:19)
[2025-03-21] MEDS: IV NS 1000 ML 1,000 ML IV SCH (17:23)
[2025-03-21 19:00] VITALS: BP 103/55; TEMP 97.8; O2SAT 95
[2025-03-21] MEDS: ATORVASTATIN 40 MG TABLET PO SCH (20:27)
[2025-03-21] MEDS: OXYCODONE HCL 5 MG TABLET PO PRN (20:28)
[2025-03-21] MEDS: INSULIN GLARGINE,HUM 300 UNITS/3 ML CARTRIDGE SQ SCH (20:45)
[2025-03-21] MEDS: DORZOLAMIDE/TIMOLOL OPHT DROP 10 ML BOTTLE LEFTEYE SCH (21:00)
[2025-03-22 04:00] VITALS: BP 94/60; TEMP 97.5; O2SAT 97
[2025-03-22 06:50] LABS: PLATELET COUNT (AUTO) 301 K/uL (179-408); RED BLOOD CELL COUNT(AUTO) 3.50 MIL/uL (3.63-4.92); RED CELL DISTRIBUTION WIDTH 19.5 % (12.3-17.7); WHITE BLOOD COUNT (AUTO) 5.5 K/uL (3.8-11.8)
[2025-03-22 07:03] LABS: CREATININE 0.9 mg/dL (0.6-1.3); SODIUM SERUM 144.0 mmol/L (136-145); UREA NITROGEN, BLOOD 26.0 mg/dL (7-18)
[2025-03-22] MEDS: BRIMONIDINE 0.2% OPHT DROP 10 ML BOTTLE LEFTEYE SCH (09:31)
[2025-03-22] MEDS: BUPRENORPHINE HCL 2 MG TAB.SUBL SL SCH (09:42)
[2025-03-22] MEDS: OXCARBAZEPINE 300 MG TABLET PO SCH (09:42)
[2025-03-22] MEDS: ASPIRIN EC 81 MG TABLET.DR PO SCH (09:42)
[2025-03-22] MEDS ORDERED: IV NS 1000 ML 1,000 ML IV ONE (10:15)
[2025-03-22] MEDS: IV NS 1000 ML 1,000 ML IV ONE (10:40)
[2025-03-22] MEDS: MIDODRINE HCL 5 MG TABLET PO ONE (10:40)
[2025-03-22 11:49] VITALS: BP 99/50; TEMP 97.8; O2SAT 96
[2025-03-22] MEDS: diphenhydrAMINE 25 MG CAP PO PRN (12:34)
[2025-03-22 13:50] VITALS: BP 89/51
[2025-03-22] MEDS ORDERED: MIDODRINE HCL 2.5 MG TABLET PO SCH ×2 (14:00)
[2025-03-22] MEDS: MIDODRINE HCL 5 MG TABLET PO SCH (14:24)
[2025-03-22] MEDS: IBUPROFEN 200 MG TABLET PO PRN (14:24)
[2025-03-22 15:36] VITALS: BP 100/64; TEMP 97.7; O2SAT 99
[2025-03-22] MEDS: ONDANSETRON 4 MG/2 ML VIAL IV PRN (17:11)
[2025-03-22 19:46] VITALS: BP 99/56; TEMP 98.1; O2SAT 98
[2025-03-23] VITALS (7 sets, daily range): BP systolic 98–133; BP diastolic 55–72; TEMP 98.5–99.3; O2SAT 92–96
[2025-03-23] MEDS: IV NORMAL SALINE 500 ML BAG IV ONE (01:27)
[2025-03-23 07:47] LABS: PLATELET COUNT (AUTO) 294 K/uL (179-408); RED BLOOD CELL COUNT(AUTO) 3.39 MIL/uL (3.63-4.92); RED CELL DISTRIBUTION WIDTH 19.6 % (12.3-17.7); WHITE BLOOD COUNT (AUTO) 5.7 K/uL (3.8-11.8)
[2025-03-23 08:04] LABS: CREATININE 0.9 mg/dL (0.6-1.3); SODIUM SERUM 140.0 mmol/L (136-145); UREA NITROGEN, BLOOD 17.0 mg/dL (7-18)
[2025-03-23 08:06] LABS: *BILIRUBIN,URIN NEGATIVE (NEGATIVE); *BLOOD, URINE 2+ (NEGATIVE); *CLARITY,URINE CLEAR (CLEAR); *COLOR,URINE YELLOW (YELLOW); *KETONES,URINE NEGATIVE (NEGATIVE); *PROTEIN,URINE TRACE (NEGATIVE); *UROBILINOGEN,URINE 0.2 E.U./dl (NORMAL); LEUKOCYTE ESTERASE ,URINE TRACE (NEGATIVE); NITRITE, URINE NEGATIVE (NEGATIVE); UGLUCOSE TRACE (NEGATIVE)
[2025-03-23 08:23] LABS: SQUAMOUS EPITHELIAL CELL,UR FEW /HPF (NONE SEEN)
[2025-03-23] MEDS: SUMATRIPTAN SUCCINATE 6 MG/0.5 ML VIAL SQ ONE (17:35)
[2025-03-23] MEDS ORDERED: INSULIN GLARGINE,HUM 300 UNITS/3 ML CARTRIDGE SQ ONE (20:47)
[2025-03-24 04:00] VITALS: BP 145/75; TEMP 98.3; O2SAT 95
[2025-03-24 12:00] VITALS: BP 106/65; TEMP 99; O2SAT 97
[2025-03-24] MEDS ORDERED: INSULIN GLARGINE,HUM 300 UNITS/3 ML CARTRIDGE SQ SCH (21:00)
== END 2025-03-24 13:15 | disposition home health service (06) | DRG 641 ==
LOC: ER 10:52 → MEDSURG3 15:33
PROVIDERS: ADMIT Nurse Practitioner Acute Care; ATTEND Nurse Practitioner Acute Care
DX: E86.0 Dehydration (principal); E86.1 Hypovolemia; Z66 Do not resuscitate; G90.89 Other disorders of autonomic nervous system; E11.43 Type 2 diabetes mellitus with diabetic autonomic (poly)neuropathy; F31.9 Bipolar disorder, unspecified; Z95.820 Peripheral vascular angioplasty status with implants and grafts; E66.9 Obesity, unspecified; E11.65 Type 2 diabetes mellitus with hyperglycemia; G43.909 Migraine, unspecified, not intractable, without status migrainosus; Z88.3 Allergy status to other anti-infective agents; Z88.2 Allergy status to sulfonamides; Z86.73 Personal history of transient ischemic attack (TIA), and cerebral infarction without residual deficits; I25.10 Atherosclerotic heart disease of native coronary artery without angina pectoris; H40.9 Unspecified glaucoma; E78.5 Hyperlipidemia, unspecified; Z86.79 Personal history of other diseases of the circulatory system; Z79.4 Long term (current) use of insulin; Z79.899 Other long term (current) drug therapy
CPT/HCPCS: 36415; 82533; 83605; 83735; 84100; 85025; 87086; 93307; A4606; A4663; C1758; G0378; J0696; J1815; J2405; J3030; J7040; Q0163

== ENCOUNTER 2025-03-27 14:48 | Emergency (ER) | payer MEDICARE, OTHER ==
[~2025-03-27] VITALS: Ht 160 cm; Wt 71.2 kg
[~2025-03-27 14:48] MED LIST changes: -AMIT25TA9 PO; +ASPI-1420 PO; -ASPI81TA31 PO; -ATOR20TA PO; +ATOR80TA PO; -BENZ0.5T43 PO; +BUPR2TAB3 SL; +DIPH25CA83 PO; +LEVO2.5S4 PO; +OXYC5CAP18 PO; +PANT40TA49 PO; -TRAM50TA2 PO
[2025-03-27 16:54] LABS: *BLOOD, URINE 3+ (NEGATIVE); *CLARITY,URINE CLEAR (CLEAR); *COLOR,URINE YELLOW (YELLOW); *KETONES,URINE 1+ (NEGATIVE); *PROTEIN,URINE 2+ (NEGATIVE); *UROBILINOGEN,URINE 0.2 E.U./dl (NORMAL); LEUKOCYTE ESTERASE ,URINE 1+ (NEGATIVE); NITRITE, URINE NEGATIVE (NEGATIVE); UGLUCOSE NEGATIVE (NEGATIVE)
[2025-03-27 16:57] LABS: *BILIRUBIN,URIN 2+ (NEGATIVE)
[2025-03-27 17:06] LABS: SQUAMOUS EPITHELIAL CELL,UR FEW /HPF (NONE SEEN)
[2025-03-27 17:07] VITALS: BP 97/66
[2025-03-27 17:45] LABS: PLATELET COUNT (AUTO) 346 K/uL (179-408); RED BLOOD CELL COUNT(AUTO) 3.64 MIL/uL (3.63-4.92); RED CELL DISTRIBUTION WIDTH 18.6 % (12.3-17.7); WHITE BLOOD COUNT (AUTO) 7.8 K/uL (3.8-11.8)
[2025-03-27 17:53] LABS: CREATININE 1.1 mg/dL (0.6-1.3); SODIUM SERUM 139 mmol/L (136-145); UREA NITROGEN, BLOOD 17 mg/dL (7-18)
[2025-03-27 17:59] LABS: ASPARTATE AMINOTRANSFERASE 18 U/L (15-37); TOTAL PROTEIN, SERUM 7.5 g/dL (6.4-8.2)
[2025-03-27] MEDS: IV NORMAL SALINE 1000 ML BAG IV ONE ×2 (18:01→18:46)
[2025-03-27] MEDS ORDERED: KETOROLAC TROMETHAMINE 15 MG INJ ONE (18:03)
[2025-03-27] MEDS ORDERED: ONDANSETRON 4 MG/2 ML VIAL ONE (18:03)
[2025-03-27] MEDS ORDERED: CEFTRIAXONE /D5W 50ML IVPB **ER PYXIS IV ONE (18:03)
[2025-03-27] MEDS: KETOROLAC TROMETHAMINE 15 MG INJ IVP ONE (18:11)
[2025-03-27] MEDS: ONDANSETRON 4 MG/2 ML VIAL IV ONE (18:12)
[2025-03-27] MEDS ORDERED: ONDA4TAB5 PO (18:23)
[2025-03-27] MEDS ORDERED: IBUP-1955 PO (18:23)
[2025-03-27] MEDS ORDERED: CEPH500C2 PO (18:23)
[2025-03-27] MEDS ORDERED: METOCLOPRAMIDE HCL 10 MG/2 ML VIAL ONE (19:16)
[2025-03-27] MEDS ORDERED: diphenhydrAMINE 50 MG/1 ML VIAL ONE (19:16)
[2025-03-27] MEDS ORDERED: MORPHINE SULFATE 2 MG/1 ML DISP.SYRIN ONE (19:16)
[2025-03-27] MEDS: diphenhydrAMINE 50 MG/1 ML VIAL IV ONE (19:22)
[2025-03-27] MEDS: METOCLOPRAMIDE HCL 10 MG/2 ML VIAL IV ONE (19:23)
[2025-03-27] MEDS: MORPHINE SULFATE 2 MG/1 ML DISP.SYRIN IV ONE (19:23)
[2025-03-27 20:00] VITALS: BP 97/66; O2SAT 97
== END 2025-03-27 20:01 | disposition home or self-care (01) ==
LOC: ER 14:55
DX: N39.0 Urinary tract infection, site not specified (principal); R10.24 Suprapubic pain; R11.2 Nausea with vomiting, unspecified; R53.1 Weakness; I11.9 Hypertensive heart disease without heart failure; I25.10 Atherosclerotic heart disease of native coronary artery without angina pectoris; E11.9 Type 2 diabetes mellitus without complications; E78.5 Hyperlipidemia, unspecified; F31.9 Bipolar disorder, unspecified; N26.1 Atrophy of kidney (terminal); Z79.4 Long term (current) use of insulin; Z79.82 Long term (current) use of aspirin; Z79.899 Other long term (current) drug therapy; Z86.73 Personal history of transient ischemic attack (TIA), and cerebral infarction without residual deficits; Z88.1 Allergy status to other antibiotic agents; Z88.2 Allergy status to sulfonamides; Z91.030 Bee allergy status
CPT/HCPCS: 99285; 74176; 96375; 96365; 71045; 80076; 80048; 81001; 82962; 83690; 84443; 85025; 87040 ×2; 87086; 84484; 36415; 51702; 83605; 93005; J1885; J0696; J1200; J2765; J2405; J2270; J7040 ×2; A4606; A4663

== ENCOUNTER 2025-05-05 18:40 | Emergency (ER) | payer MEDICARE, OTHER ==
[~2025-05-05] VITALS: Ht 160 cm; Wt 72.6 kg
[~2025-05-05 18:40] MED LIST changes: +CEPH500C2 PO; +IBUP600T51 PO; +ONDA4TAB5 PO; -OXYC5CAP18 PO; +OXYC5CAP22 PO
[2025-05-05 18:44] VITALS: BP 139/95
[2025-05-05] MEDS ORDERED: HYDROMORPHONE HCL 2 MG TABLET ONE (19:10)
[2025-05-05] MEDS ORDERED: ONDANSETRON ODT 4 MG TAB.RAPDIS ONE (19:10)
[2025-05-05 19:11] LABS: *BILIRUBIN,URIN NEGATIVE (NEGATIVE); *COLOR,URINE YELLOW (YELLOW); *KETONES,URINE NEGATIVE (NEGATIVE); *PROTEIN,URINE NEGATIVE (NEGATIVE); *UROBILINOGEN,URINE 0.2 E.U./dl (NORMAL); LEUKOCYTE ESTERASE ,URINE 1+ (NEGATIVE); NITRITE, URINE NEGATIVE (NEGATIVE); UGLUCOSE NEGATIVE (NEGATIVE)
[2025-05-05] MEDS: ONDANSETRON ODT 4 MG TAB.RAPDIS SL ONE (19:13)
[2025-05-05] MEDS: HYDROMORPHONE HCL 2 MG TABLET PO ONE (19:13)
[2025-05-05 19:16] LABS: *BLOOD, URINE TRACE (NEGATIVE); *CLARITY,URINE SLIGHTLY CLOUDY (CLEAR)
[2025-05-05] MEDS ORDERED: TRAM50TA2 PO (19:29)
[2025-05-05] MEDS ORDERED: ONDA-243 PO (19:29)
[2025-05-05 19:31] LABS: SQUAMOUS EPITHELIAL CELL,UR MODERATE /HPF (NONE SEEN)
[2025-05-05 19:45] VITALS: BP 135/91; O2SAT 97
== END 2025-05-05 19:32 | disposition home or self-care (01) ==
LOC: ER 18:48
DX: R10.A2 Flank pain, left side (principal); E11.9 Type 2 diabetes mellitus without complications; E78.5 Hyperlipidemia, unspecified; F31.9 Bipolar disorder, unspecified; I51.9 Heart disease, unspecified; N39.0 Urinary tract infection, site not specified; Z79.4 Long term (current) use of insulin; Z79.82 Long term (current) use of aspirin; Z79.899 Other long term (current) drug therapy; Z86.73 Personal history of transient ischemic attack (TIA), and cerebral infarction without residual deficits; Z88.1 Allergy status to other antibiotic agents; Z88.2 Allergy status to sulfonamides; Z91.030 Bee allergy status
CPT/HCPCS: 87077; 87086; A4606; A4663; Q0162